=== PATIENT | male | born 1945 | race Caucasian/White ===

== ENCOUNTER 2016-06-11 13:09 | Inpatient (IN) | payer OTHER, MEDICARE ==
[2016-06-11] VITALS (13 sets, daily range): BP systolic 75–171; BP diastolic 41–80; PULSE 74–130; RESP 15–18; TEMP 99.4; O2SAT 94–100
[~2016-06-11] VITALS: Ht 188 cm; Wt 83.7 kg
[2016-06-11] MEDS ORDERED: LOSA100T PO (13:25)
[2016-06-11] MEDS ORDERED: AMLO5TAB2 PO (13:25)
[2016-06-11] MEDS ORDERED: METO50TA11 PO (13:25)
[2016-06-11] MEDS ORDERED: NITR0.4S SL (13:25)
[2016-06-11] MEDS ORDERED: ASPI81CH CHEW (13:25)
[2016-06-11] MEDS ORDERED: ADVA100A INH (13:26)
[2016-06-11] MEDS ORDERED: SODIUM CHLORIDE 0.9% FLUSH 5 ML FLUSH IVF PRN (13:30)
[2016-06-11 14:00] LABS: AUTOMATED NEUTROPHIL # 6.4 TH/MM3 (1.8-7.7); BASOPHIL # 0.1 TH/MM3 (0-0.2); BASOPHIL % 0.7 % (0.0-2.0); EOSINOPHIL # 0.1 TH/MM3 (0-0.4); EOSINOPHIL % 0.9 % (0.0-4.0); HEMATOCRIT 39.9 % (39.0-51.0); HEMO FLAGS DIFF FINAL; LYMPH % 9.8 % (9.0-44.0); LYMPHOCYTE # 0.8 TH/MM3 (1.0-4.8); MEAN CELL VOLUME 88.3 FL (80.0-100.0); MEAN CORPUSCULAR HEMOGLOBIN 30.9 PG (27.0-34.0); MONO % 7.8 % (0.0-8.0); NEUT % 80.8 % (16.0-70.0); PLATELET COUNT 284 TH/MM3 (150-450); RED BLOOD COUNT 4.52 MIL/MM3 (4.50-5.90); RED CELL DISTRIBUTION WIDTH 12.7 % (11.6-17.2)
[2016-06-11 14:08] LABS: PROTHROMBIN TIME - PATIENT 10.9 SEC (9.8-11.6)
[2016-06-11 14:24] LABS: ALKALINE PHOSPHATASE 65 U/L (45-117); ALT (GPT) 18 U/L (12-78); ANION GAP 12 MEQ/L (5-15); BICARBONATE 26.2 MEQ/L (21.0-32.0); BLOOD UREA NITROGEN 12 MG/DL (7-18); CHLORIDE 100 MEQ/L (98-107); GLOMERULAR FILTRATION RATE 46 ML/MIN (>89); SODIUM (NA) 138 MEQ/L (136-145); TOTAL BILIRUBIN ADULT 0.6 MG/DL (0.2-1.0)
[2016-06-11 14:25] LABS: AST (GOT) 22 U/L (15-37); CREATINE KINASE 73 U/L (39-308); POTASSIUM 3.4 MEQ/L (3.5-5.1)
--- NOTE | 2016-06-11 14:55 | PD ---
HPI Chief Complaint: Syncope/Near-Syncope Time Seen by Provider: 13:21 Travel History International Travel<30 days: No Contact w/Intl Traveler<30days: No Traveled to known affect area: No History of Present Illness HPI 71-year-old male came to the emergency room with history of headache, syncopal episode, hypotension. He called 911 since he was having headache but when EMS arrived patient initially was not opening the door. Later on he crawled to the door and opened and said he had fallen. There was possibly a syncopal episode. His blood pressure initially by EMS was less than 80. He was a difficult IV stick and by the time they got a 22-gauge Angiocath they started flowing fluid. Upon arrival patient said he was cold and left side of his head was hurting. Patient has history of chronic headache on the left side. He had CAT scan of his head done 5 days ago for the same reason. He has also been nauseous he said. His blood pressure was 125 systolic in the ER and rectal temp was 98.5. He did seem to be anxious and in moderate distress. Patient has history of atrial fibrillation. [facility] Past Medical History Narrative Medical List of his past medical history as reviewed from the nursing note. Asthma: Yes Atrial Fibrillation: Yes Cardiovascular Problems: Yes (AFIB) Hypertension: Yes Influenza Vaccination: Yes Past Surgical History Surgical History: No Previous Surgery Social History Alcohol Use: No Tobacco Use: No Substance Use: No Allergies-Medications (Allergen,Severity, Reaction): Coded Allergies: No Known Allergies (Unverified , 06/11/16) Comments No known drug allergies. Reported Meds & Prescriptions Reported Meds & Active Scripts Active Reported Advair Diskus Inh (Fluticasone-Salmeterol Inh) 100-50 Mcg/Blist Aer 1 Puff INH BID Rinse mouth after use. Nitrostat SL (Nitroglycerin) 0.4 Mg Subl 0.4 Mg SL DIRECTED PRN 1 tablet under the tongue as needed for chest pain. Repeat every 5 minutes for a total of 3 DOSES or call 911 if NO relief. Losartan (Losartan Potassium) 100 Mg Tab 100 Mg PO DAILY Metoprolol Succinate ER 24 HR (Metoprolol Succinate) 50 Mg Tab 50 Mg PO BID Amlodipine (Amlodipine Besylate) 5 Mg Tab 5 Mg PO DAILY Aspirin 81 Mg Chew 81 Mg CHEW DAILY Narrative Medication List of his home medications reviewed from the nursing note. Review of Systems Except as stated in HPI: all other systems reviewed are Neg Physical Exam Narrative GENERAL: Awake, alert, anxious, moderate distress SKIN: Warm and dry. HEAD: Atraumatic. Normocephalic. EYES: Pupils equal and round. No scleral icterus. No injection or drainage. ENT: No nasal bleeding or discharge. Mucous membranes pink and moist. NECK: Trachea midline. No JVD. CARDIOVASCULAR: Irregularly irregular. No murmur appreciated. RESPIRATORY: No accessory muscle use. Clear to auscultation. Breath sounds equal bilaterally. GASTROINTESTINAL: Abdomen soft, non-tender, nondistended. Hepatic and splenic margins not palpable. MUSCULOSKELETAL: No obvious deformities. No clubbing. No cyanosis. No edema. NEUROLOGICAL: Awake and alert. No obvious cranial nerve deficits. Motor grossly within normal limits. Normal speech. PSYCHIATRIC: Appropriate mood and affect; insight and judgment normal. Data Data Last Documented VS Vital Signs Date Time Temp Pulse Resp B/P Pulse Ox O2 Delivery O2 Flow Rate FiO2 06/11/16 16:08 78 18 75/41 97 06/11/16 16:05 Nasal Cannula 2 Orders Prothrombin Time / Inr (Pt) (06/11/16 13:28) Complete Blood Count With Diff (06/11/16 13:28) Comprehensive Metabolic Panel (06/11/16 13:28) Creatine Kinase (Cpk) (06/11/16 13:28) Drug Screen, Random Urine (06/11/16 13:28) Troponin I (06/11/16 13:28) Urinalysis - C+S If Indicated (06/11/16 13:28) Ua Includes Microscopic (06/11/16 13:28) Ct Brain W/O Iv Contrast(Rout) (06/11/16 13:28) Ecg Monitoring (06/11/16 13:28) Iv Access Insert/Monitor (06/11/16 13:28) Oximetry (06/11/16 13:28) Sodium Chloride 0.9% Flush (Ns Flush) (06/11/16 13:30) Ct Pulmonary Angiogram (06/11/16 ) Ct Abd/Pel W Iv Contrast(Rout) (06/11/16 ) Sodium Chlor 0.9% 1000 Ml Inj (Ns 1000 M (06/11/16 15:00) Sodium Chlor 0.9% 1000 Ml Inj (Ns 1000 M (06/11/16 15:00) Sodium Chlor 0.9% 1000 Ml Inj (Ns 1000 M (06/11/16 15:00) Iohexol 350 Inj (Omnipaque 350 Inj) (06/11/16 15:16) Vital Signs (Adult) Q15MX4,Q4H (06/11/16 15:53) ^ Director Of Cardiac Rehabilitation / Telemetry (06/11/16 15:53) Cardiac Rhythm ANTONIETA.Q8H (06/11/16 15:53) ^ Notify Dr: Other (06/11/16 15:53) Diltiazem Inj (Cardizem Inj) (06/11/16 16:00) Diltiazem Inj (Cardizem Inj) (06/11/16 16:00) Heparin Infusion ANTONIETA.Q1H (06/11/16 15:53) Heparin Inj (Heparin Inj) (06/11/16 16:00) Heparin-D5w Inj (Heparin-D5w Inj) (06/11/16 16:00) Act Partial Throm Time (Ptt) (06/11/16 15:53) Cbc No Diff, Includes Plts (06/11/16 15:53) Cbc No Diff, Includes Plts (06/14/16 06:00) Act Partial Throm Time (Ptt) (06/11/16 22:53) Lactic Acid (06/11/16 16:10) Blood Culture (06/11/16 16:10) Sodium Chlor 0.9% 1000 Ml Inj (Ns 1000 M (06/11/16 16:15) Norepinephrine-Dextrose Drip (Levophed-D (06/11/16 16:15) Terbutaline Inj (Brethine Inj) (06/11/16 16:15) Piperacil-Tazo 4.5 Gm Premix (Zosyn 4.5 (06/11/16 16:15) Vancomycin Inj (Vancomycin Inj) (06/11/16 16:15) Urinary Catheter Insert/Apply (06/11/16 16:16) Admit Order (Ed Use Only) (06/11/16 16:25) Labs Laboratory Tests Test 06/11/16 06/11/16 06/11/16 13:15 16:18 16:21 White Blood Count 8.0 TH/MM3 7.8 TH/MM3 Red Blood Count 4.52 MIL/MM3 4.08 MIL/MM3 Hemoglobin 14.0 GM/DL 12.6 GM/DL Hematocrit 39.9 % 36.3 % Mean Corpuscular Volume 88.3 FL 89.0 FL Mean Corpuscular Hemoglobin 30.9 PG 30.8 PG Mean Corpuscular Hemoglobin 35.0 % 34.6 % Concent Red Cell Distribution Width 12.7 % 12.9 % Platelet Count 284 TH/MM3 235 TH/MM3 Mean Platelet Volume 7.6 FL 8.0 FL Neutrophils (%) (Auto) 80.8 % Lymphocytes (%) (Auto) 9.8 % Monocytes (%) (Auto) 7.8 % Eosinophils (%) (Auto) 0.9 % Basophils (%) (Auto) 0.7 % Neutrophils # (Auto) 6.4 TH/MM3 Lymphocytes # (Auto) 0.8 TH/MM3 Monocytes # (Auto) 0.6 TH/MM3 Eosinophils # (Auto) 0.1 TH/MM3 Basophils # (Auto) 0.1 TH/MM3 CBC Comment DIFF FINAL Differential Comment Prothrombin Time 10.9 SEC Prothromb Time International 1.0 RATIO Ratio Sodium Level 138 MEQ/L Potassium Level 3.4 MEQ/L Chloride Level 100 MEQ/L Carbon Dioxide Level 26.2 MEQ/L Anion Gap 12 MEQ/L Blood Urea Nitrogen 12 MG/DL Creatinine 1.50 MG/DL Estimat Glomerular Filtration 46 ML/MIN Rate Random Glucose 157 MG/DL Calcium Level 8.4 MG/DL Total Bilirubin 0.6 MG/DL Aspartate Amino Transf 22 U/L (AST/SGOT) Alanine Aminotransferase 18 U/L (ALT/SGPT) Alkaline Phosphatase 65 U/L Total Creatine Kinase 73 U/L Troponin I 0.12 NG/ML Total Protein 7.3 GM/DL Albumin 3.2 GM/DL Lactic Acid Level 1.4 mmol/L Activated Partial 121.1 SEC Thromboplast Time MDM Medical Decision Making Medical Screen Exam Complete: Yes Emergency Medical Condition: Yes Medical Record Reviewed: Yes Interpretation(s) Twelve-lead EKG was reviewed by me. Atrial fibrillation, normal axis, LVH, RVR. Heart rate of 114 bpm. Differential Diagnosis Intracranial bleed, hypovolemia, electrolyte abnormalities Narrative Course 3:51 PM blood test results are back and troponin is elevated. Patient's heart rate is currently in 130s to 140s. I'll start him on Cardizem bolus and drip. I will also start him on heparin bolus and drip. Patient will need to be admitted. CAT scan of his head and abdomen pelvis were within normal limits. CAT scan of his chest did not show any PE but some interstitial pulmonary edema. Awaiting for the hospitalist to call back. 4:26 PM patient's heart rate continued to be in 130s. His systolic blood pressure was 110. I decided to give him a Cardizem bolus with drip. After getting 15 mg of Cardizem bolus patient's blood pressure dropped to 61 systolic. Patient will not get the Cardizem drip. He has been started on fourth L of normal saline bolus. Cedillo will be put in. Repeat Blood pressure was 90 systolic. At this point given multiple issues patient will be admitted to ICU. I spoke with Dr. Amador was the fresh work wrapper layer on today. He has accepted the case. Critical Care Narrative Aggregate critical care time was 90 minutes. Time to perform other separately billable procedures was not included in the critical care time. My time did not include minutes spent treating any other patients simultaneously or on activities that did not directly contribute to the patient's treatment. The services I provided to this patient were to treat and/or prevent clinically significant deterioration that could result in: Syncope, hypotension, A. fib with RVR, heparin bolus and drip, Cardizem bolus and drip, hypotension, 4 L of IV fluid resuscitation I provided critical care services requiring my management, as noted below: Chart data review, documentation time, medication orders and management, vital sign assessments/reviewing monitor data, ordering and reviewing lab tests, ordering and interpreting/reviewing x-rays and diagnostic studies, care of the patient and discussion of the patient with the admitting physicians. Procedures Procedure Narrative CENTRAL VENOUS LINE: The site was prepped with Betadine and sterilely draped. It was infiltrated with 1% lidocaine plain. The deep vein was cannulated using normal Seldinger technique. A triple lumen central line was placed in the left subclavian site and secured with simple interrupted suture. The site was sterilely dressed. The patient tolerated the procedure well. EKG Prior to Arrival: Yes Physician Communication Physician Communication Dr. Amador Diagnosis Primary Impression: Headache Qualified Code: R51 - Chronic intractable headache, unspecified headache type Additional Impressions: Atrial fibrillation with RVR Elevated troponin Syncope Qualified Code: R55 - Syncope, unspecified syncope type Hypotension Qualified Code: I95.9 - Hypotension, unspecified hypotension type Admitting Information Admitting Physician Requests: it Mohsen Gale MD Jun 11, 2016 14:55
[2016-06-11] MEDS ORDERED: SODIUM CHLOR 0.9% 1000 ML INJ 1,000 ML IV ONE ×4 (15:00→16:15)
[2016-06-11] MEDS ORDERED: IOHEXOL 350 MG/ML 10 ML VIAL (for RAD DIAG) IV ONE (15:16)
--- NOTE | 2016-06-11 15:19 | RADRPT ---
EXAM DATE/TIME: 06/11/2016 15:09 [facility] COMPARISON: No previous studies available for comparison. INDICATIONS : Cephalgia. RADIATION DOSE: 69.07 CTDIvol (mGy) MEDICAL HISTORY : Hypertension. Cardiovascular disease SURGICAL HISTORY : None. ENCOUNTER: Initial ACUITY: 1 day PAIN SCALE: 5/10 LOCATION: cranial TECHNIQUE: Multiple contiguous axial images were obtained of the head. Using automated exposure control and adj ustment of the mA and/or kV according to patient size, radiation dose was kept as low as reasonably a chievable to obtain optimal diagnostic quality images. FINDINGS: The intracranial contents are unremarkable. There is no parenchymal hemorrhage, acute infarction or m ass lesion. There are no extra-axial fluid collections appreciated. The posterior fossa is unreamrakble with midline 4th ventricle. There is air in the soft tissues in the right infratemporal fossa. The etiology for this is not appa rent. Correlation is suggested. CONCLUSION: Negative for acute intracranial process. Air in the temporal fossa on the right. Correlation is joaquín valdez. Guillaume Mims MD FACR on June 11, 2016 at 15:13 Board Certified Radiologist. This report was verified electronically.
--- NOTE | 2016-06-11 15:32 | RADRPT ---
EXAM DATE/TIME: 06/11/2016 15:12 [facility] COMPARISON: No previous studies available for comparison. INDICATIONS : Evaluate for emboli. IV CONTRAST: 75 cc Omnipaque 350 (iohexol) IV ; Cumulative dose for multiple exams. RADIATION DOSE: 23.40 CTDIvol (mGy) MEDICAL HISTORY : Cardiovascular disease. Hypertension. AFIB SURGICAL HISTORY : None. ENCOUNTER: Initial ACUITY: 1 day PAIN SCALE: 5/10 LOCATION: Bilateral chest TECHNIQUE: Volumetric scanning of the chest was performed using a pulmonary embolism protocol MIP images were re constructed. Using automated exposure control and adjustment of the mA and/or kV according to patien t size, radiation dose was kept as low as reasonably achievable to obtain optimal diagnostic quality images. FINDINGS: Moderate interstitial changes are present in both lungs with cardiomegaly. Moderate coronary calcifi cations are noted. There is no axillary adenopathy. There is no mediastinal adenopathy. The pulmonary arteries are prominent centrally. I do not see evidence for central pulmonary emboli. There is reflux of contrast into the hepatic veins. This can be seen with right heart failure. CONCLUSION: 1. Cardiomegaly with moderate interstitial edema. 2. There is no evidence for central pulmonary emboli. 3. Marked coronary artery calcifications. 4. Prominent pulmonary arteries suggesting pulmonary artery hypertension. Guillaume Mims MD FACR on June 11, 2016 at 15:23 Board Certified Radiologist. This report was verified electronically.
--- NOTE | 2016-06-11 15:36 | RADRPT ---
EXAM DATE/TIME: 06/11/2016 15:12 [facility] COMPARISON: No previous studies available for comparison. INDICATIONS : Abdomen pain. IV CONTRAST: 75 cc Omnipaque 350 (iohexol) IV ; Cumulative dose for multiple exams. ORAL CONTRAST: No oral contrast ingested. RADIATION DOSE: 8.11 CTDIvol (mGy) MEDICAL HISTORY : Cardiovascular disease. Hypertension. SURGICAL HISTORY : None. ENCOUNTER: Initial ACUITY: 1 day PAIN SCALE: 5/10 LOCATION: Bilateral abdomen. TECHNIQUE: Volumetric scanning of the abdomen and pelvis was performed. Using automated exposure control and ad justment of the mA and/or kV according to patient size, radiation dose was kept as low as reasonably achievable to obtain optimal diagnostic quality images. FINDINGS: Moderate bibasilar interstitial changes are evident with patchy air space disease. Marked coronary c alcifications are noted. The liver is free of focal defects. There is some gallbladder wall thickening present. Cyst is seen in the left kidney. The right kidney is unremarkable. There is no ascites or adenopathy appreciated. The pelvic contents are unremarkable. There is minimal prostatic calcifications. Scattered divertic yolanda are present in the sigmoid colon without diverticulitis. CONCLUSION: Minimal gallbladder wall thickening. Otherwise, benign appearing gallbladder. I do not see etiology for patient's abdominal pain. Guillaume Mims MD FACR on June 11, 2016 at 15:30 Board Certified Radiologist. This report was verified electronically.
[2016-06-11] MEDS ORDERED: DILTIAZEM HCL 25 MG/5 ML VIAL IVP ONE (16:00)
[2016-06-11] MEDS ORDERED: DILTIAZEM INJ 125 MG in SODIUM CHLORIDE 0.9% INJ 100 ML IV SCH ×2 (16:00→17:15)
[2016-06-11] MEDS ORDERED: HEPARIN SODIUM - IV 10,000 UNITS/10 ML VIAL IV ONE (16:00)
[2016-06-11] MEDS ORDERED: HEPARIN-D5W INJ 250 ML IV SCH (16:00)
[2016-06-11] MEDS ORDERED: PIPERACIL-TAZO 4.5 GM PREMIX 100 ML IV ONE (16:15)
[2016-06-11] MEDS ORDERED: TERBUTALINE INJ 1 MG/ML AMP SQ PRN (16:15)
[2016-06-11] MEDS ORDERED: NOREPINEPHRINE-DEXTROSE DRIP 250 ML IV SCH (16:15)
[2016-06-11] MEDS ORDERED: VANCOMYCIN INJ 1,000 MG in SODIUM CHLOR 0.9% 250 ML INJ 250 ML IV ONE (16:15)
[2016-06-11] MEDS ORDERED: RESP: ALBUTEROL 2.5 MG/IPRATROPIUM 0.5 MG NEB (PRN) INH (16:30)
[2016-06-11] MEDS ORDERED: SODIUM CHLORIDE 0.9% FLUSH 5 ML FLUSH IV FLUSH PRN (16:30)
[2016-06-11] MEDS ORDERED: MISCELLANEOUS NURSING INFORMATION XX SCH (16:30)
[2016-06-11] MEDS ORDERED: CHLORHEXIDINE GLUCONATE 2 % 1 PACK (2 CLOTHS) TOP PRN (16:30)
[2016-06-11] MEDS ORDERED: POTASSIUM CL 40 MEQ/30 ML LIQ UDC PO/TUBE PRN ×2 (16:45)
[2016-06-11] MEDS ORDERED: SODIUM PHOSPHATE INJ 30 MMOL in SODIUM CHLOR 0.9% 250 ML INJ 240 ML IV PRN (16:45)
[2016-06-11] MEDS ORDERED: POTASSIUM PHOSPHATE MONOBASIC 500 MG TAB PO PRN (16:45)
[2016-06-11] MEDS ORDERED: POTASSIUM CHLOR 20 MEQ PREMIX 100 ML IV PRN ×2 (16:45)
[2016-06-11] MEDS ORDERED: MAGNESIUM SULFATE INJ 4 GM in SODIUM CHLORIDE 0.9% INJ 92 ML IV PRN (16:45)
[2016-06-11] MEDS ORDERED: POTASSIUM CHLOR 40 MEQ PREMIX 100 ML IV PRN (16:45)
[2016-06-11] MEDS ORDERED: POTASSIUM PHOSPHATE INJ 30 MMOL in SODIUM CHLOR 0.9% 250 ML INJ 250 ML IV PRN (16:45)
[2016-06-11] MEDS ORDERED: ACETAMINOPHEN 650 MG SUPP RECTAL ONE (16:45)
[2016-06-11] MEDS ORDERED: POTASSIUM PHOSPHATE MONOBASIC 500 MG TAB PO/TUBE PRN (16:45)
[2016-06-11] MEDS ORDERED: MAGNESIUM OXIDE 400 MG TAB PO PRN (16:45)
[2016-06-11] MEDS ORDERED: MAGNESIUM SULFATE INJ 2 GM in SODIUM CHLORIDE 0.9% INJ 96 ML IV PRN (16:45)
[2016-06-11 16:51] LABS: HEMATOCRIT 36.3 % (39.0-51.0); MEAN CORPUSCULAR HEMOGLOBIN 30.8 PG (27.0-34.0); MEAN CORPUSCULAR HGB CONC 34.6 % (32.0-36.0); PLATELET COUNT 235 TH/MM3 (150-450); RED BLOOD COUNT 4.08 MIL/MM3 (4.50-5.90); RED CELL DISTRIBUTION WIDTH 12.9 % (11.6-17.2); REVIEW FLAG FINAL; WHITE BLOOD COUNT 7.8 TH/MM3 (4.0-11.0)
[2016-06-11] MEDS ORDERED: ONDANSETRON HCL 4 MG/2 ML VIAL ONE (16:53)
--- NOTE | 2016-06-11 17:19 | HHI.HP ---
HPI Service Critical Care Medicine Primary Care Physician Unknown Admission Diagnosis hypertension, elevated troponin, A. fib with RVR Diagnosis: Chief Complaint: Syncope Acute kidney failure Dehydration Probable pneumonia and sepsis Atrial fibrillation with RVR Troponin elevation Travel History International Travel<30 Days: No Contact w/Intl Traveler <30 Da: No Traveled to Known Affected Are: No Sepsis Criteria SIRS Criteria (2 or more): Heart rate over 90 Sepsis Criteria (SIRS+source): Infect source susp/known History of Present Illness 71-year-old male with past medical history of paroxysmal atrial fibrillation, history of head and neck squamous cell cancer, new left submandibular mass FNA 10 days ago, results pending who presented to the emergency room with history of headache, syncopal episode, hypotension. Patient called EMS for severe headache and possible syncope. He denies fall and had been on couch but unable to get up. When EMS arrived it took a while for the patient open the door, he eventually crawled to the door and opened it. His blood pressure initially by EMS was less than 80. They placed 22-gauge Angiocath they started IV fluid. In the ER patient continued to be intermittently hypotensive with systolic blood pressure in 70s. Blood pressure improved with multiple fluid boluses he received 4 L of normal saline IV fluids. His heart rate was in 130s to 140s, with 20 mg of IV Cardizem push patient converted to NSR. CAT scan of his head and abdomen pelvis were essentially within normal limits. CT of the head showed right infratemporal fossa air (?this could be related to the FNA on the left neck). CAT scan of his chest showed interstitial infiltrates bilaterally, predominantly upper lobe. Dr. Gale also placed a left subclavian central line I evaluated the patient in the ED. Patient appears with mild to moderate distress due to nausea, vomiting and anxiety. He and his noted that since last 5 days he had not been having adequate po mouth intake due to loss of appetite. He does think that he lost consciousness. I have ordered MRI and MRA of the brain and neck. Patient will be empirically covered for sepsis with Zosyn and azithromycin given pulmonary infiltrates. His lab works shows a creatinine of 1.5. His troponin was 0.12. His aPTT came back at 121 which I have repeated. Hematology consult had been requested and also will request records from Dr. Ye's office. 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 Ye ENT Past Surgical History FNA L submandibular mass 10 days ago Reported Medications Advair Diskus Inh (Fluticasone-Salmeterol Inh) 100-50 Mcg/Blist Aer 1 Puff INH BID Nitrostat SL (Nitroglycerin) 0.4 Mg Subl 0.4 Mg SL DIRECTED PRN Losartan (Losartan Potassium) 100 Mg Tab 100 Mg PO DAILY Metoprolol Succinate ER 24 HR (Metoprolol Succinate) 50 Mg Tab 50 Mg PO BID Amlodipine (Amlodipine Besylate) 5 Mg Tab 5 Mg PO DAILY Aspirin 81 Mg Chew 81 Mg CHEW DAILY (Takes Rythmol as needed for atrial fibrillation with RVR according to the patient) Active Ordered Medications Reviewed Family History Reviewed Social History Quit smoking 25 years ago, no current alcohol use Physical Exam Vital Signs Vital Signs Date Time Temp Pulse Resp B/P Pulse Ox O2 Delivery O2 Flow Rate FiO2 06/11/16 16:08 78 18 75/41 06/11/16 16:05 130 18 97/52 Nasal Cannula 2 06/11/16 13:39 103 16 96/54 98 Nasal Cannula 2 06/11/16 13:35 16 94 Nasal Cannula 2 06/11/16 13:14 122 16 125/57 98 Physical Exam GENERAL: Awake, alert, mild to moderate distress. Osseous SKIN: Warm and dry. HEAD: Atraumatic. Normocephalic. EYES: Pupils equal and round. No scleral icterus. No injection or drainage. ENT/Neck: Left submandibular indurated mass, no fluctuation. Unable to determine size -margins cannot be palpated CARDIOVASCULAR: S1-S2 normal no murmurs. No murmur appreciated. RESPIRATORY: Clear to auscultation. Breath sounds equal bilaterally. GASTROINTESTINAL: Abdomen soft, non-tender, nondistended. Hepatic and splenic margins not palpable. MUSCULOSKELETAL: No clubbing. No cyanosis. No edema. NEUROLOGICAL: Awake and alert. No obvious cranial nerve deficits. Motor grossly within normal limits. Normal speech. Laboratory Laboratory Tests Test 06/11/16 13:15 White Blood Count 8.0 Red Blood Count 4.52 Hemoglobin 14.0 Hematocrit 39.9 Mean Corpuscular Volume 88.3 Mean Corpuscular Hemoglobin 30.9 Mean Corpuscular Hemoglobin 35.0 Concent Red Cell Distribution Width 12.7 Platelet Count 284 Mean Platelet Volume 7.6 Neutrophils (%) (Auto) 80.8 Lymphocytes (%) (Auto) 9.8 Monocytes (%) (Auto) 7.8 Eosinophils (%) (Auto) 0.9 Basophils (%) (Auto) 0.7 Neutrophils # (Auto) 6.4 Lymphocytes # (Auto) 0.8 Monocytes # (Auto) 0.6 Eosinophils # (Auto) 0.1 Basophils # (Auto) 0.1 CBC Comment DIFF FINAL Differential Comment Prothrombin Time 10.9 Prothromb Time International 1.0 Ratio Sodium Level 138 Potassium Level 3.4 Chloride Level 100 Carbon Dioxide Level 26.2 Anion Gap 12 Blood Urea Nitrogen 12 Creatinine 1.50 Estimat Glomerular Filtration 46 Rate Random Glucose 157 Calcium Level 8.4 Total Bilirubin 0.6 Aspartate Amino Transf 22 (AST/SGOT) Alanine Aminotransferase 18 (ALT/SGPT) Alkaline Phosphatase 65 Total Creatine Kinase 73 Troponin I 0.12 Total Protein 7.3 Albumin 3.2 Result Diagram: 06/11/16 1315 06/11/16 1315 Imaging Imaging studies reviewed Septic Shock Reassessment Heart: Regular rate and rhythm Lungs: Clear Skin: Cold Peripheral Pulses: Weak Right Radial Weak Left Radial Capillary Refill: Sluggish Assessment and Plan Problem List: (1) Syncope ICD Code: R55 Status: Acute (2) Atrial fibrillation with RVR ICD Code: I48.91 Status: Acute (3) Hypotension ICD Code: I95.9 Status: Acute (4) Elevated troponin ICD Code: R79.89 Status: Acute (5) Probable sepsis ICD Code: A41.9 Status: Acute (6) Acute kidney failure ICD Code: N17.9 Status: Acute (7) Probable pneumonia Status: Acute (8) Headache ICD Code: R51 Status: Chronic (9) Atrial fibrillation, chronic ICD Code: I48.2 Status: Chronic Assessment and Plan NEURO: Syncope Intractable headache -As needed Percocet for pain. -MRI MRA of the brain, patient has history of paroxysmal A. fib -Neurology consulted RESP/ENT: Left submandibular mass Moderate interstitial infiltrates History of squamous cell carcinoma head and neck in 2013 -Nasal cannula oxygen, continue Advair Diskus -Check influenza A and B -CT of the chest shows bilateral interstitial infiltrates predominantly upper lobes -Differential includes interstitial lung disease versus atypical pneumonia -Continue empiric Zosyn and azithromycin, check urine for Legionella and pneumococcal antigen CV: Hypotension A. fib with RVR Mild troponin elevation, rule out NSTEMI History of chronic atrial fibrillation -Normal saline IV fluids four liter bolus followed by 100 mL per hour, 2d echo, cycle troponin -Continue ASA, start IV Heparin if MRI brain negative -Troponin elevation may be secondary to RVR, will rule out NSTEMI GI: Nausea/vomiting -Use when necessary Zofran -Keep nothing by mouth. Protonix for GI prophylaxis : Acute kidney failure Dehydration -Monitor renal function closely. Strict intake output -Received 4 liter IV fluid bolus, continue maintenance fluid at normal saline 100 mL per hour -Further renal workup if creatinine is not improving, CT abdomen did not show any obstruction ID: Probable sepsis Probable pneumonia versus chronic interstitial infiltrates -Check sputum culture blood culture, check influenza, urine for Legionella and pneumococcal antigen -Received 1 dose of vancomycin continue Zosyn and azithromycin HEME: New left submandibular mass probable recurrence of squamous cell cancer History of squamous cell cancer of the scalp and neck in 2011 Elevated APTT ? lab error -Consult hematology oncology for further recommendation -Get FNA results from Dr. Ye's office -Monitor CBC, CMP, coags. Repeat APTT -Start IV heparin if MRI/MRA negative ENDO: Hyperglycemia Hypokalemia -Electrolyte replacement protocol -Sliding-scale insulin if needed PROPH: -Bilateral lower extremity SCDs. IV heparin if MRI negative. IV Protonix LINES: -Left subclavian central line placed by Dr. Gale CC time 45 min Code Status Full code Discussed Condition With Dr. Gale and Dr. Mims. Also discussed with patient and his Problem Qualifiers (1) Syncope: Qualified Code: R55 - Syncope, unspecified syncope type (2) Hypotension: Qualified Code: I95.9 - Hypotension, unspecified hypotension type (3) Headache: Qualified Code: R51 - Chronic intractable headache, unspecified headache type Ros Amador MD Jun 11, 2016 17:19
[2016-06-11 17:30] LABS: APTT (PATIENT) 121.1 SEC (24.3-30.1)
[2016-06-11] MEDS ORDERED: LORazepam 2 MG/ML VIAL IV PUSH ONE (17:30)
--- NOTE | 2016-06-11 17:41 | RADRPT ---
EXAM DATE/TIME: 06/11/2016 17:04 [facility] COMPARISON: No previous studies available for comparison. INDICATIONS : Evaluate central line placement MEDICAL HISTORY : Cardiovascular disease. Hypertension. AFIB SURGICAL HISTORY : None. ENCOUNTER: Initial ACUITY: 1 day PAIN SCORE: 3/10 LOCATION: Bilateral chest FINDINGS: Central venous catheter is in the expected location of the superior vena cava. There is no pneumotho rax. The lungs are under aerated. CONCLUSION: Line in good position without pneumothorax. Guillaume Mims MD FACR on June 11, 2016 at 17:10 Board Certified Radiologist. This report was verified electronically.
[2016-06-11] MEDS: PIPERACIL-TAZO 3.375 GM PREMIX 50 ML IV SCH (18:00)
[2016-06-11] MEDS: AZITHROMYCIN INJ 500 MG in SODIUM CHLOR 0.9% 250 ML INJ 250 ML IV SCH (18:00)
--- NOTE | 2016-06-11 18:17 | RADRPT ---
EXAM DATE/TIME: 06/11/2016 17:26 [facility] COMPARISON: No previous studies available for comparison. INDICATIONS : Near syncope. MEDICAL HISTORY : Carcinoma, squamous cell. Afib SURGICAL HISTORY : None applicable ENCOUNTER: Initial ACUITY: 1 day PAIN SCORE: 0/10 LOCATION: cranial TECHNIQUE: Multiplanar, multisequence MRI of the brain was performed without contrast. FINDINGS: There may be restricted diffusion evident. Very minimal periventricular white matter changes are not ed. There is no parenchymal hemorrhage, acute infarction or mass lesion. There are no extra-axial flu id collections appreciated. The midline structures are intact. CONCLUSION: There is no evidence for edema or infarction. Guillaume Mims MD FACR on June 11, 2016 at 18:00 Board Certified Radiologist. This report was verified electronically.
--- NOTE | 2016-06-11 18:20 | RADRPT ---
EXAM DATE/TIME: 06/11/2016 17:26 [facility] COMPARISON: No previous studies available for comparison. INDICATIONS : Near syncope. CONTRAST: 20 cc Omniscan (gadodiamide) IV MEDICAL HISTORY : Carcinoma, squamous cell. Afib SURGICAL HISTORY : None applicable ENCOUNTER: Initial ACUITY: 1 day PAIN SCORE: 0/10 LOCATION: neck Percent stenosis is calculated using the diameter of the stenotic region over the diameter of the nor mal distal internal carotid artery. TECHNIQUE: Bolus infused MRA of the extracranial circulation was performed using a neurovascular coil. Post pro cessing was performed including rotationg subvolume maximum intensity projections of each carotid art genet, rotating full volume maximum intensity projections of both carotid arteries, sagittal and washburn l sliding thin slab reformations of each carotid artery, and left oblique sliding thin slab reformati on through the aortic arch to include the origin of the arch branch vessels. FINDINGS: Examination is limited. Branching pattern of the great vessels is normal. There is no evidence of hemodynamically significant right carotid stenosis. There is no hemodynamically significant left carotid stenosis. Both vertebral arteries are patent. Basilar artery is patent. CONCLUSION: There is no hemodynamically significant of stenosis. Guillaume Mims MD FACR on June 11, 2016 at 18:10 Board Certified Radiologist. This report was verified electronically.
[2016-06-11] MEDS ORDERED: GADODIAMIDE PF 287 MG/ML 20 ML VIAL (for RAD MRI) IV ONE (18:22)
--- NOTE | 2016-06-11 18:22 | RADRPT ---
EXAM DATE/TIME: 06/11/2016 17:26 [facility] COMPARISON: No previous studies available for comparison. INDICATIONS : Near syncope. MEDICAL HISTORY : Carcinoma, squamous cell. Afib SURGICAL HISTORY : None applicable ENCOUNTER: Initial ACUITY: 1 day PAIN SCORE: 0/10 LOCATION: cranial Please note a normal MRA of the brain does not entirely exclude the possibility of a small aneurysm, nor the possibility of distal intracranial vessel disease. TECHNIQUE: 3D time of flight MRA was performed. Source images, multiplanar STS MIP, and 3D volume MIP reconstru ctions were reviewed. FINDINGS: There is moderate atherosclerotic intracranial vascular disease evident. There is no evidence for aneurysm or vascular displacement. There is poor visualization of the proximal M1 segment of the right posterior cerebral artery. I don' t know whether this is actually real or artifactual. CONCLUSION: Atherosclerotic intracranial vascular disease as described above. Guillaume Mims MD FACR on June 11, 2016 at 17:59 Board Certified Radiologist. This report was verified electronically.
[2016-06-11 18:27] LABS: BLOOD, URINE MOD (NEG); COMMENT (UR) CULT NOT INDICATED; CULTURE IF INDICATED CULT NOT INDICATED; GLUCOSE,URINE NEG (NEG); KETONE, URINE TRACE mg/dL (NEG); MUCUS URINE FEW /lpf (OCC); NITRITE,URINE NEG (NEG); URINE COLOR YELLOW (YELLW/STRAW)
[2016-06-11 18:33] LABS: AMPHETAMINE, URINE NEG (NEG); BARBITURATES, URINE NEG (NEG); COCAINE, URINE NEG (NEG)
[2016-06-11] MEDS: PANTOPRAZOLE SODIUM 40 MG VIAL IV SCH (18:57)
[2016-06-11] MEDS: NS + KCL 20 MEQ INJ 1,000 ML IV SCH (18:58)
[2016-06-11] MEDS: BUDESONIDE-FORMOTEROL 80/4.5 MCG INHALER INH SCH (22:08)
[2016-06-11] MEDS: SODIUM CHLORIDE 0.9% FLUSH 5 ML FLUSH IV FLUSH SCH (22:08)
[2016-06-11 22:33] LABS: APTT (PATIENT) 33.6 SEC (24.3-30.1)
[2016-06-12] VITALS (13 sets, daily range): BP systolic 115–183; BP diastolic 55–84; PULSE 71–93; RESP 14–22; TEMP 98.6–99.9; O2SAT 95–97
[2016-06-12] MEDS: PIPERACIL-TAZO 3.375 GM PREMIX 50 ML IV SCH ×3 (01:42→17:02)
[2016-06-12 02:16] LABS: APTT (PATIENT) 48.3 SEC (24.3-30.1)
[2016-06-12] MEDS: METOPROLOL TARTRATE 50 MG TAB PO SCH ×4 (03:29→21:11)
[2016-06-12] MEDS: NS + KCL 20 MEQ INJ 1,000 ML IV SCH ×2 (03:38→18:57)
[2016-06-12] MEDS: CHLORHEXIDINE GLUCONATE 2 % 1 PACK (2 CLOTHS) TOP SCH (03:44)
[2016-06-12 04:53] LABS: AUTOMATED NEUTROPHIL # 6.7 TH/MM3 (1.8-7.7); BASOPHIL % 0.2 % (0.0-2.0); EOSINOPHIL % 0.1 % (0.0-4.0); HEMATOCRIT 33.8 % (39.0-51.0); HEMO FLAGS DIFF FINAL; LYMPH % 9.2 % (9.0-44.0); LYMPHOCYTE # 0.8 TH/MM3 (1.0-4.8); MEAN CELL VOLUME 88.4 FL (80.0-100.0); MEAN CORPUSCULAR HEMOGLOBIN 30.1 PG (27.0-34.0); MONO % 11.6 % (0.0-8.0); NEUT % 78.9 % (16.0-70.0); PLATELET COUNT 234 TH/MM3 (150-450); RED BLOOD COUNT 3.83 MIL/MM3 (4.50-5.90); WHITE BLOOD COUNT 8.5 TH/MM3 (4.0-11.0)
[2016-06-12 05:27] LABS: ALKALINE PHOSPHATASE 49 U/L (45-117); ALT (GPT) 17 U/L (12-78); ANION GAP 9 MEQ/L (5-15); AST (GOT) 37 U/L (15-37); BICARBONATE 24.4 MEQ/L (21.0-32.0); BLOOD UREA NITROGEN 10 MG/DL (7-18); CHLORIDE 108 MEQ/L (98-107); GLOMERULAR FILTRATION RATE 75 ML/MIN (>89); POTASSIUM 3.2 MEQ/L (3.5-5.1); SODIUM (NA) 141 MEQ/L (136-145); TOTAL BILIRUBIN ADULT 0.6 MG/DL (0.2-1.0)
--- NOTE | 2016-06-12 05:39 | RADRPT ---
EXAM DATE/TIME: 06/12/2016 03:33 [facility] COMPARISON: CHEST SINGLE AP, June 11, 2016, 17:04. INDICATIONS : Shortness of breath, possible pulmonary disease. MEDICAL HISTORY : Cardiovascular disease. A-Fib hypertension SURGICAL HISTORY : None. ENCOUNTER: Subsequent ACUITY: 2 days PAIN SCORE: 0/10 LOCATION: Bilateral chest FINDINGS: Left subclavian catheter is stable in position. Aeration has improved with increased lung volumes and decrease in vascular congestion and perihilar parenchymal opacities. Cardiac contour is grossly stab le CONCLUSION: Improved aeration Perry Wells MD on June 12, 2016 at 5:37 Board Certified Radiologist. This report was verified electronically.
--- NOTE | 2016-06-12 07:25 | MB ---
cc: ROME GUILLORY M.D. DATE OF CONSULTATION: 06/11/2016 CHIEF COMPLAINT "I have cancer." HISTORY OF PRESENT ILLNESS This patient is a 71-year-old man. He received treatment for a head and neck cancer approximately 2 years ago. He received radiation and chemotherapy. His treatment was in [facility]. His records are in [facility]. The patient had findings suggestive of recurrence 2 months ago. He underwent a biopsy 10 days ago. He is uncertain of the results. He came to the emergency room complaining of nausea and anxiety as well as loss of appetite and decreased intake. The patient had studies in the emergency room. Those studies indicated a creatinine of 1.5 and BUN of 12. The patient's white count was largely normal. His APTT was recorded as 121. His PT and INR were normal. The doctors in the emergency room gave him fluids, aspirin and antibiotics. The patient continues to complain of discomfort and fullness in his neck. The doctors requested a hematology/oncology consultation. PRIOR HOSPITALIZATIONS AND MEDICAL EXAMS 1. Hypertension. 2. Atrial fibrillation. 3. Asthma. ALLERGIES None. MEDICATIONS 1. Amlodipine 5 mg daily. 2. Aspirin 81 mg daily. 3. Advair Diskus, one puff b.i.d. 4. Losartan 100 mg daily. 5. Metoprolol 50 b.i.d. 6. Nitroglycerin p.r.n. SOCIAL HISTORY This man received his treatment in [facility]. He lives in [place]. He is legally . He is retired. FAMILY HISTORY Noncontributory REVIEW OF SYSTEMS The patient does admit to cardiac problems with atrial fibrillation, hypertension, asthma, pain in his neck, cancer of his upper airway, recent biopsy, anxiety, rapid heart beat, poor oral intake. I did review the nurse 13-point review of systems which indicated that the patient had a history of atrial fibrillation, hypertension, asthma, symptoms of neck pain, anxiety, headache and recent syncopal episode. PHYSICAL EXAMINATION GENERAL: This is an alert, pleasant, very anxious 71-year-old man who is attended by his family. VITAL SIGNS: Pulse 76, respirations 18, blood pressure 84/48, pulse oximetry 97 on two liters. HEAD: No pain, irregularities or exostosis. EARS: External anatomy is normal; ear canals are normal. NOSE: No cysts or deviation of nasal septa appreciated. MOUTH: Tongue is in midline; uvula is nondeviated. No masses are evident. Dentition is acceptable. NECK: Examination of the left neck reveals a hard mass which has all the characteristics of recurrent cancer. LUNGS: Examination shows diminished chest wall expansion, diminished breath sounds. HEART: Normal S1 and S2 are present. There are no bruits, lifts, murmurs or thrills. S3 and S4 are absent. ABDOMEN: Abdomen is scaphoid. There is no localized tenderness or rebound. There are no masses. The liver and spleen cannot be palpated. There are normal bowel sounds. INGUINAL: Examination was not performed. GENITALIA: Examination was not performed. RECTAL: Examination was not performed. EXTREMITIES: Examination reveals degenerative changes. NEUROLOGIC: Adequate motor power and sensory perception is appreciated. There is good mentation, insight and affect. The patient is anxious. LYMPHATIC: Pathologic adenopathy is not appreciated. SKIN: The skin surface integrity is maintained symmetrically without edema or breakdown. 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 Note, we do not have the original records. The patient has evidently received chemotherapy and radiation. We need those records. 2. History of atrial fibrillation. 3. History of hypertension. 4. History of asthma. 5. Degenerative arthritis. 6. Hypertension. RECOMMENDATIONS This man has a stone-hard area which looks to be an obvious recurrence. This bodes poorly for his future. We need to acquire his records. He needs to be hydrated. His renal function is significantly abnormal. We need to obtain his recent biopsy. I note that he has had recent imaging studies which indicate that he likely has disease which has spread beyond the confines of his neck. He has had a PET scan and CAT scan recently. These were performed as an outpatient at [facility]. These scans did show strong evidence for recurrent disease with disease into his chest. We need to acquire his records, his recent biopsy and then he needs to be considered for treatment. Hopefully his renal function can be stabilized. Rome Guillory MD WJD/KIRSTEN /7:19 PM /7:03 AM IGNACIA
[2016-06-12] MEDS: POTASSIUM CHLOR 40 MEQ PREMIX 100 ML IV PRN ×2 (08:44→17:03)
[2016-06-12] MEDS: hydrALAZINE HCL 20 MG/ML VIAL IV PUSH PRN (08:45)
[2016-06-12] MEDS: PANTOPRAZOLE SODIUM 40 MG VIAL IV SCH (08:45)
[2016-06-12] MEDS: ASPIRIN 81 MG CHEW TAB CHEW SCH (08:46)
[2016-06-12] MEDS: SODIUM CHLORIDE 0.9% FLUSH 5 ML FLUSH IV FLUSH SCH ×2 (08:46→21:11)
[2016-06-12 08:47] LABS: APTT (PATIENT) 73.7 SEC (24.3-30.1)
[2016-06-12] MEDS: BUDESONIDE-FORMOTEROL 80/4.5 MCG INHALER INH SCH ×2 (08:47→21:11)
--- NOTE | 2016-06-12 09:01 | HHI.CCPN ---
Subjective Remarks/Hospital Course 71-year-old male with past medical history of paroxysmal atrial fibrillation, history of head and neck squamous cell cancer, new left submandibular mass FNA 10 days ago, results pending who presented to the emergency room with history of headache, syncopal episode, hypotension. Patient called EMS for severe headache and possible syncope. He denies fall and had been on couch but unable to get up. When EMS arrived it took a while for the patient open the door, he eventually crawled to the door and opened it. His blood pressure initially by EMS was less than 80. They placed 22-gauge Angiocath they started IV fluid. In the ER patient continued to be intermittently hypotensive with systolic blood pressure in 70s. Blood pressure improved with multiple fluid boluses he received 4 L of normal saline IV fluids. His heart rate was in 130s to 140s, with 20 mg of IV Cardizem push patient converted to NSR. CAT scan of his head and abdomen pelvis were essentially within normal limits. CT of the head showed right infratemporal fossa air (?this could be related to the FNA on the left neck). CAT scan of his chest showed interstitial infiltrates bilaterally, predominantly upper lobe. Dr. Gale also placed a left subclavian central line. I evaluated the patient in the ED. Patient appears with mild to moderate distress due to nausea, vomiting and anxiety. He and his noted that since last 5 days he had not been having adequate po mouth intake due to loss of appetite. He does think that he lost consciousness. I have ordered MRI and MRA of the brain and neck. Patient will be empirically covered for sepsis with Zosyn and azithromycin given pulmonary infiltrates. His lab works shows a creatinine of 1.5. His troponin was 0.12. His aPTT came back at 121 which I have repeated. Hematology consult had been requested and also will request records from Dr. Ye's office. His troponin is mildly elevated, could be demand ischemia, but will rule out NSTEMI SUBJECTIVE 06/12: Troponin increased to 5.15. patient is on IV Heparin, ASA, metoprolol and cardiology consult/Echo pending. Cr improved from 1.5 ot 0.9. UO 1.4 L in 24 hours. Hypotension resolved, in act hypertensive now. Will resume his Losartan and Norvasc Objective Vital Signs Date Time Temp Pulse Resp B/P Pulse Ox O2 Delivery O2 Flow Rate FiO2 1/16/17 06:00 78 06/12/16 04:00 98.9 14 167/75 95 06/11/16 20:00 Room Air 06/11/16 18:00 2 Intake and Output 06/11/16 06/11/16 06/12/16 08:00 16:00 00:00 Intake Total 9 ml Output Total 600 ml Balance -591 ml Result Diagram: 06/12/1642606/12/16426 Imaging Imaging studies reviewed Objective Remarks GENERAL: Awake, alert, no distress SKIN: Warm and dry. HEAD: Atraumatic. Normocephalic. EYES: Pupils equal and round. No scleral icterus. No injection or drainage. ENT/Neck: Left submandibular indurated mass, no fluctuation. Unable to determine size -margins cannot be palpated CARDIOVASCULAR: S1-S2 normal no murmurs. No murmur appreciated. RESPIRATORY: Clear to auscultation. Breath sounds equal bilaterally. GASTROINTESTINAL: Abdomen soft, non-tender, nondistended. Hepatic and splenic margins not palpable. MUSCULOSKELETAL: No clubbing. No cyanosis. No edema. NEUROLOGICAL: Awake and alert. No obvious cranial nerve deficits. Motor grossly within normal limits. Normal speech. A/P Problem List: (1) NSTEMI (non-ST elevated myocardial infarction) ICD Code: I21.4 Status: Acute (2) Syncope ICD Code: R55 Status: Acute (3) Atrial fibrillation with RVR ICD Code: I48.91 Status: Acute (4) Hypotension ICD Code: I95.9 Status: Acute (5) Elevated troponin ICD Code: R79.89 Status: Acute (6) Probable sepsis ICD Code: A41.9 Status: Acute (7) Acute kidney failure ICD Code: N17.9 Status: Acute (8) Probable pneumonia Status: Acute (9) Headache ICD Code: R51 Status: Chronic (10) Atrial fibrillation, chronic ICD Code: I48.2 Status: Chronic Assessment and Plan NEURO: Syncope Intractable headache -As needed Percocet for pain. -MRI MRA of the brain, essentially negative. Syncope most likely from severe hypotension -Neurology consulted RESP/ENT: Left submandibular mass Moderate interstitial infiltrates History of squamous cell carcinoma head and neck in 2013 -Nasal cannula oxygen, continue Advair Diskus -F/u influenza A and B -CT of the chest shows bilateral interstitial infiltrates predominantly upper lobes -Differential includes interstitial lung disease versus atypical pneumonia -Continue empiric Zosyn and azithromycin, f/u urine for Legionella and pneumococcal antigen CV: NSTEMI Hypotension resolved A. fib with RVR, now NSR History of chronic atrial fibrillation -Cardiology consulted, 2 D Echo pending. -Continue ASA, IV Heparin. Increase metoprolol to 50 q8 -Resume home Losartan 100 mg daily and Norvasc 5 mg daily -Received Normal saline IV fluids four liter bolus in ED, continue followed by 100 mL per hour, 2d echo, cycle troponin -May need cardiac cath GI: Nausea/vomiting-resolved -Use when necessary Zofran -Start Heart healthy diet. Protonix for GI prophylaxis : Acute kidney failure -resolved Dehydration -Monitor renal function closely. Strict intake output -Received 4 liter IV fluid bolus, continue maintenance fluid at normal saline 100 mL per hour ID: Probable sepsis Probable pneumonia versus chronic interstitial infiltrates -F/u sputum culture blood culture, check influenza, urine for Legionella and pneumococcal antigen -Received 1 dose of vancomycin continue Zosyn and azithromycin until cultures are back HEME: New left submandibular mass probable recurrence of squamous cell cancer History of squamous cell cancer of the scalp and neck in 2011 -Consulted hematology oncology for further recommendation, Dr. Tirado following -Get FNA results from Dr. Ye's office -Monitor CBC, CMP, coags. Repeat APTT ENDO: Hyperglycemia Hypokalemia -Electrolyte replacement protocol -Sliding-scale insulin if needed PROPH: -Bilateral lower extremity SCDs. IV heparin. IV Protonix LINES: -Left subclavian central line placed by Dr. Gale Level 3 Transfer to [facility] with tele. Dr. Good to assume care 06/13/16 Problem Qualifiers (1) Syncope: Qualified Code: R55 - Syncope, unspecified syncope type (2) Hypotension: Qualified Code: I95.9 - Hypotension, unspecified hypotension type (3) Headache: Qualified Code: R51 - Chronic intractable headache, unspecified headache type Ros Amador MD Jun 12, 2016 09:01
[2016-06-12] MEDS: LOSARTAN 50 MG TAB PO SCH (09:21)
[2016-06-12] MEDS: amLODIPine BESYLATE 5 MG TAB PO SCH (09:21)
[2016-06-12] MEDS: ONDANSETRON HCL 4 MG/2 ML VIAL IV PUSH PRN (09:39)
[2016-06-12] MEDS ORDERED: PNEUMOCOCCAL POLYVALENT INJ 25 MCG/0.5 ML SYR IM ONE (10:00)
--- NOTE | 2016-06-12 13:08 | EC ---
Study Study Date:06/12/2016 STUDY CONCLUSIONS SUMMARY LEFT VENTRICLE: The cavity size was normal. Wall thickness was normal. Systolic function was normal. The estimated ejection fraction was in the range of 55% to 60%. Wall motion was normal; there were no regional wall motion abnormalities. If LV function is below 40, please consider prescribing an ACEI or ARB or document rationale for non-use. PROCEDURE DATA STUDY STATUS: Elective. Procedure: Transthoracic echocardiography. Image quality was good. Scanning was performed from the parasternal, apical, and subcostal acoustic windows. Study completion: The patient tolerated the procedure well. Transthoracic echocardiography. M-mode, complete 2D, complete spectral Doppler, and color Doppler. Patient status: Inpatient. CARDIAC ANATOMY LEFT VENTRICLE: The cavity size was normal. Wall thickness was normal. Systolic function was normal. The estimated ejection fraction was in the range of 55% to 60%. Wall motion was normal; there were no regional wall motion abnormalities. AORTIC VALVE: Trileaflet; normal thickness leaflets. Doppler: Transvalvular velocity was within the normal range. There was no stenosis. No regurgitation. AORTA: Aortic root: The aortic root was normal in size. MITRAL VALVE: Structurally normal valve. Doppler: Transvalvular velocity was within the normal range. There was no evidence for stenosis. Trace regurgitation. Peak gradient: 2mm Hg (D). LEFT ATRIUM: The atrium was normal in size. RIGHT VENTRICLE: The cavity size was normal. Wall thickness was normal. PULMONIC VALVE: Doppler: Transvalvular velocity was within the normal range. There was no evidence for stenosis. No regurgitation. TRICUSPID VALVE: Structurally normal valve. Doppler: Transvalvular velocity was within the normal range. Trace regurgitation. PULMONARY ARTERY: The main pulmonary artery was normal-sized. Systolic pressure was within the normal range. RIGHT ATRIUM: The atrium was normal in size. PERICARDIUM: There was no pericardial effusion. SYSTEMIC VEINS: Inferior vena cava: The vessel was normal in size. BASIC MEASUREMENTS ADULT Normal Left ventricle LV internal dimension, ED, chordal level, *40.5 mm 43-52 PLAX LV posterior wall thickness, ED 7.87 mm IVS/LVPW ratio, ED *1.35 <1.3 Ventricular septum Septal thickness, ED 10.6 mm Left atrium Anterior-posterior dimension 40 mm Right ventricle RV internal dimension, ED, PLAX 21.4 mm 19-38 DOPPLER MEASUREMENTS ADULT Normal Main pulmonary artery Pressure, S 17 mm Hg =30 Mitral valve Peak E-wave velocity 75.3 cm/s Peak A-wave velocity 49.4 cm/s Peak gradient, D 2 mm Hg Peak E/A ratio 1.5 Tricuspid valve Regurgitant peak velocity 133 cm/s Peak RV-RA gradient, S 7 mm Hg Maximal regurgitant velocity 133 cm/s Systemic veins Estimated CVP 10 mm Hg Right ventricle RV pressure, S 17 mm Hg <30 LEGEND: Mean values are shown as u=mean value. Asterisk (*) miller values outside specified normal range. Prepared and signed by Thierry Toledo [id number]
[2016-06-12 13:48] LABS: AUTOMATED NEUTROPHIL # 8.7 TH/MM3 (1.8-7.7); BASOPHIL % 0.2 % (0.0-2.0); EOSINOPHIL % 0.1 % (0.0-4.0); HEMATOCRIT 34.2 % (39.0-51.0); HEMO FLAGS DIFF FINAL; LYMPH % 5.2 % (9.0-44.0); LYMPHOCYTE # 0.5 TH/MM3 (1.0-4.8); MEAN CELL VOLUME 88.1 FL (80.0-100.0); MEAN CORPUSCULAR HEMOGLOBIN 30.6 PG (27.0-34.0); MEAN CORPUSCULAR HGB CONC 34.8 % (32.0-36.0); MONO % 5.4 % (0.0-8.0); NEUT % 89.1 % (16.0-70.0); PLATELET COUNT 221 TH/MM3 (150-450); RED BLOOD COUNT 3.88 MIL/MM3 (4.50-5.90); RED CELL DISTRIBUTION WIDTH 12.9 % (11.6-17.2); WHITE BLOOD COUNT 9.8 TH/MM3 (4.0-11.0)
--- NOTE | 2016-06-12 14:40 | MB ---
cc: JIA LOVELACE M.D. DATE OF CONSULTATION: 06/12/2016 DATE OF : 1945 REASON FOR CONSULTATION Syncope. HISTORY OF PRESENT ILLNESS The patient is a 71-year-old man with a history of paroxysmal atrial fibrillation, head and neck squamous cell cancer with a new left submandibular mass that was aspirated 10 days ago. Biopsy results are pending. He came in because he had syncope at home and paramedics found him. He does not know for how long he had the event. He was found to be also hypertensive with a heart rate elevated over 130, found to be in atrial fibrillation with rapid ventricular response, and also had a headache. CT scan of the brain did not show anything acute. He actually had an MRI of the brain that was negative as well. He has been having some nausea and he continues to have nausea. Currently he is having a 2-D echo. PAST MEDICAL HISTORY 1. Paroxysmal atrial fibrillation. 2. Hypertension. 3. Squamous cell cancer of the neck, biopsy pending. MEDICATIONS Current medicines at home: 1. Advair. 2. Nitrostat. 3. Losartan. 4. Metoprolol. 5. Amlodipine. 6. Baby aspirin. 7. Rythmol p.r.n. SOCIAL HISTORY Quit smoking 25 years ago. No alcohol. ALLERGIES None reported. PHYSICAL EXAMINATION VITAL SIGNS: Temperature 98.9, pulse 74, respiratory rate 14, blood pressure 167/75. NEUROLOGIC: He is awake, alert and oriented. He is fluent. Pupils reactive. Face symmetrical. Tongue is midline. Motor-brambila he does not have any significant deficits noted, although he cannot fully participate at this time due to having a 2-D echo. Gait is withheld at this time. LABORATORY DATA His labs were reviewed. Hemoglobin 11.5, platelets 234,000, white count 8.5. Coag panel: Current PTT 73.7. Chemistries: Potassium 3.2, GFR 75, calcium 7.6, phosphorus 3.4, albumin 2.6. Four sets of troponin show 0.12, 0.46, 2.68, 5.15. There is another one pending from this morning. CKs have been normal, 73. Toxicology is negative. Urine culture is not indicated, moderate blood, some mucus. MRSA screen is negative. Microbiology is pending, urine and blood. IMAGING DATA Chest x-ray: Aeration seems to be improved per the chart. CT head negative for any acute process. Abdomen and pelvis CT: Minimal gallbladder thickening, benign otherwise. MRI of the brain showed no acute stroke or mass. CT angiography: Cardiomegaly with moderate interstitial edema. No pulmonary emboli. Marked coronary artery calcification. Prominent pulmonary artery suggesting pulmonary artery hypertension. Head MRA showed some atherosclerotic intracranial disease in the M1 proximally in the right posterior cerebral artery but this is either reality or artifact per chart. Carotid MRA was negative for intracranial disease. IMPRESSION AND RECOMMENDATIONS A 71-year-old man status post syncope, multifactorial, could be from his atrial fibrillation with RVR. Also has what looks like an elevated troponin at this point in time, possible [id number] myocardial infarction. Syncope is likely from his hypotension. He was hypotensive I am told when [facility] arrived and when he came in it was low as well at one point. He is no longer hypotensive. He already had an MRI and MRA. Certainly given his cardiac history he needs to be on aspirin for his intracranial questionable stenosis I would not put him on anything more than antiplatelet therapy. It does not sound like a seizure. I asked him if he bit his tongue, he denied that, he was not incontinent of urine or stool. He is having an echo. Will continue to monitor him, have cardiology evaluate him, and just routine pain management for the headache. Certainly can be multifactorial at this point in time. If any new changes, please feel free to call me but otherwise continue current care. MD DENIS Smith/KIRSTEN /11:00 AM /2:16 PM
--- NOTE | 2016-06-12 15:35 | MB ---
cc: RICCO MATTHEWS MD DATE OF CONSULTATION: 06/12/2016 CHIEF COMPLAINT Left neck mass. HISTORY OF PRESENT ILLNESS This is a 71-year-old male who was diagnosed with left tongue cancer, unsure if it was base of tongue cancer, he is only able to say left tongue cancer, with left neck cancer for which he was treated with chemoradiation therapy 2 years ago in [facility]. Approximately 2-3 months ago he noted increasing left neck swelling. He is unsure exactly how long it had been going on as his left neck is very firm from the radiation, but he did notice increased swelling approximately 2 months ago. He was seen by Dr. Chaz Ye in the office and underwent a fine-needle aspiration biopsy approximately 10 days ago. He came to the emergency room complaining of difficulty with weight loss and decreased appetite and intake as well as some nausea and he is very anxious about the left neck mass and possible recurrent cancer. PAST MEDICAL HISTORY 1. Hypertension. 2. Atrial fibrillation. 3. Asthma. MEDICATIONS Current medications are: 1. Advair. 2. Metoprolol. 3. Nitroglycerin. 4. Amlodipine. 5. Losartan. The patient currently has moved to [place] and established care with Dr. Ye for his neck cancer history. He has only been evaluated one time. PHYSICAL EXAMINATION GENERAL: Today the patient is alert and oriented x3, in no acute distress. HEENT: Today the tongue is soft. There are no obvious ulcerations or masses noted. The tongue base seems firm to palpation. Floor of mouth is soft to palpation. No obvious lesions or ulcerations. 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 NECK: Exam reveals a large left neck mass involving the parotid as well as level II with extension into level III. It is deeply fixed to deep structures with some skin changes. LUNGS: Clear to auscultation. HEART: Regular rate rhythm. ASSESSMENT AND PLAN The patient had a fine needle aspiration biopsy by Dr. Chaz Ye in the office; this was nondiagnostic. The pathology report has been faxed to Dr. Guillory's office. At this time with no diagnosis of recurrence, however, as I explained to Mr. Mcclelland this absolutely looks like a recurrent cancer in his left neck, we do need to get a diagnosis for treatment purposes. When he was in the office with Dr. Chaz Ye he had told him he was not interested in having additional chemotherapy and wanted to pursue surgical intervention. At that time he was referred to the [facility] at [facility] for possible resection. I am unsure if he is quite a candidate for this due to the significant extension of the neck mass; however, I would have to defer that to the head and neck surgeons at the [facility] to determine whether they felt that surgical resection was possible. Once again as I explained to Mr. Mcclelland we do not have a current diagnosis. He would benefit from an ultrasound-guided core biopsy of the left neck mass for diagnostic purposes. I have explained this to him. He understands and wishes to proceed in this fashion. My recommendation at the current time is for the patient to undergo ultrasound-guided biopsy of the left neck mass for diagnostic purposes, and he can determine whether he wants to pursue possible surgical intervention or additional chemotherapy options. Ricco VARGAS/KIRSTEN /11:50 AM /3:22 PM
[2016-06-12] MEDS: AZITHROMYCIN INJ 500 MG in SODIUM CHLOR 0.9% 250 ML INJ 250 ML IV SCH (17:02)
[2016-06-12] MEDS: ACETAMINOPHEN/HYDROcodone 325 MG/7.5 MG TAB PO PRN (17:02)
--- NOTE | 2016-06-12 19:03 | MB ---
cc: BRENNAN PELAYO Corrected Copy: 06/29/16 DATE OF CONSULTATION 06/12/2016 HISTORY This is a 71-year-old male presented with history of atrial fibrillation and had some history of a headache with syncopal episodes and low blood pressure. He was started on heparin drip and a Cedillo catheter was placed in the emergency room. According to the patient the catheter was somewhat traumatic and there was some difficulty getting it in and later on he developed gross hematuria. It is unclear if the gross hematuria started after the Cedillo or if it started after the heparin drip was administered. He denies any prior voiding history of nocturia, prostatic enlargement, gross stones or infections. He denies any family history of prostate cancer or any urologic problems. PAST MEDICAL HISTORY Includes: 1. Atrial fibrillation. 2. Hypertension. 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 MEDICATIONS For the medications please refer the chart. PAST SURGICAL HISTORY Notable for a submandibular mass biopsy 10 days ago. SOCIAL HISTORY Quit smoking 25 years ago. Denies any alcohol or drug use. FAMILY HISTORY Denies prostate cancer. REVIEW OF SYSTEMS Denies chest pain at present. Denies headaches, shortness of breath. Denies bleeding disorders, gait disturbances. Denies history of hematuria, stones or UTIs. Denies heat or cold intolerance. Denies psychiatric problems. Denies diarrhea or constipation. All other systems are negative. PHYSICAL EXAMINATION VITAL SIGNS: His vital signs today temperature 99.9, heart rate 74, respiratory rate 14, 167/75 is his blood pressure. GENERAL: He is a well-developed, well-nourished 71-year-old male in no acute distress. HEENT: Normocephalic, atraumatic. Pupils equal, round, reactive light. Ears: no wax noted NECK: Supple and there is left-sided submandibular mass noted. HEART: Rate is regular rate and rhythm. LUNGS: Breath sounds bilaterally. ABDOMEN: Soft and nontender. Nondistended. GENITOURINARY: Normal phallus. Testes are descended. Cedillo catheters is in place. This was irrigated to the bedside and is clear presently. There is gross blood in his Cedillo bag, however. EXTREMITIES: Show no clubbing, cyanosis or edema. LABORATORY DATA His recent white count 8.5, hemoglobin 11.5, hematocrit 33.8, platelet count of 234. Sodium 141, potassium 3.2, chloride 108, CO2 24.4, BUN 10, creatinine 0.9, glucose of 91. Coags, PT is 10.9, INR is 1.0, PTT is 73.7. Urinalysis shows, on admission, moderate blood with innumerable red cells noted. IMAGING CT scan of the abdomen and pelvis with contrast shows a cyst in the left kidney which is simple. Unremarkable pelvic contents. Minimal prostatic calcification is noted. ASSESSMENT This is a 71-year-old male with evidence of gross hematuria. Cedillo irrigated at the bedside and urine appears to be clear. This hematuria could have resulted from the heparin drip versus traumatic Cedillo. I believe however, this may be due to heparin drip as there is no blood per his meatus around the catheter which would indicate urethral trauma. We will recommend irrigations every 2-3 hours initially, if this remains clear the irrigations can then stop. He may need a cystoscopy as an outpatient. Void trial once he is ambulating and his syncope has resolved. Thank for the consult and allowing me to participate in the care of this patient. Brennan HEMPHILL /1:00 PM /2:18 PM MTDRaquel
--- NOTE | 2016-06-12 19:40 | EKG ---
Date Performed: 06/11/2016 Time Performed: 13:14:52 PTAGE: 71 years EKG: ATRIAL FIBRILLATION WITH RAPID VENTRICULAR RESPONSE MINIMAL VOLTAGE CRITERIA FOR LVH, CONSI RAMONA NORMAL VARIANT MODERATE ST DEPRESSION ABNORMAL ECG NO PREVIOUS TRACING DOCTOR: Joey Elder Interpretating Date/Time 06/12/2016 19:35:16
[2016-06-13] VITALS (8 sets, daily range): BP systolic 135–182; BP diastolic 62–86; PULSE 71–88; RESP 16–20; TEMP 98.4–99.2; O2SAT 94–98
[2016-06-13] MEDS: hydrALAZINE HCL 20 MG/ML VIAL IV PUSH PRN (00:04)
[2016-06-13] MEDS: NS + KCL 20 MEQ INJ 1,000 ML IV SCH (01:21)
[2016-06-13] MEDS: PIPERACIL-TAZO 3.375 GM PREMIX 50 ML IV SCH ×3 (01:21→17:25)
[2016-06-13] MEDS: CHLORHEXIDINE GLUCONATE 2 % 1 PACK (2 CLOTHS) TOP SCH (04:00)
[2016-06-13] MEDS: METOPROLOL TARTRATE 50 MG TAB PO SCH ×3 (05:00→21:11)
--- NOTE | 2016-06-13 07:27 | MB ---
cc: KALEE FERGUSON DATE OF CONSULTATION: 06/12/2016 DATE OF : 1945 REASON FOR CONSULTATION Elevated troponins. HISTORY OF PRESENT ILLNESS 71-year-old male with past medical history of hypertension, atrial fibrillation , asthma, head and neck cancer status post radiation and chemotherapy, recent FNA suggestive of recurrence, who presented to the emergency department with profound hypotension and acute kidney injury in the setting of nausea, vomiting , loss of appetite and decreased p.o. intake. On further questioning he reports that he has been having severe headaches and blurry vision. He denies chest pain, shortness of breath, palpitations. In the emergency department he was successfully resuscitated. He was admitted to the intensive care unit for further management and evaluation. Cardiology has been consulted secondary to elevated troponins. REVIEW OF SYSTEMS The review of systems is negative except for what is mentioned in the HPI. PAST MEDICAL HISTORY 1. Paroxysmal atrial fibrillation. 2. Hypertension. 3. Squamous cell cancer of the neck, biopsy pending. MEDICATIONS 1. Advair. 2. Nitrostat. 3. Losartan. 4. Metoprolol. 5. Amlodipine. 6. Baby aspirin. 7. Rythmol. SOCIAL HISTORY Quit smoking 25 years ago. No alcohol. No illicit drug use. ALLERGIES No known drug allergies. FAMILY HISTORY Noncontributory. PHYSICAL EXAMINATION VITAL SIGNS: Temperature 98.9, pulse 74, respiratory rate 14, blood pressure 167/75. O2 sat 95% in room air. GENERAL: He is awake, alert and oriented, in no acute distress. NECK: No JVD. No carotid bruits. HEART: Normal S1, S2. No murmurs, rubs or gallops. LUNGS: Clear to auscultation bilaterally. No wheezes, rhonchi or rales. ABDOMEN: Soft, nontender, nondistended. Positive bowel sounds. EXTREMITIES: No cyanosis. No edema. Pulses throughout. LABORATORY CBC: Hemoglobin 11, hematocrit 34, platelet count 221. INR 1. Chemistries sodium 141, potassium 3.9, BUN 10, creatinine 0.99. Troponin 2.6, 5.1, and 6.37. There is hematuria in the urinalysis. Toxicology unremarkable. ECHOCARDIOGRAM Echocardiogram shows normal LV systolic function with estimated ejection fraction of 60%. No wall motion abnormalities. EKG EKG shows sinus bradycardia with nonspecific ST changes. ASSESSMENT AND PLAN 71-year-old male with the above history and findings presenting with syncope in the setting of severe dehydration and decreased p.o. intake, also found to have significantly elevated troponin's. He denies chest pain or palpitations, however, does report nausea and vomiting in his house. He remains fairly hemodynamically stable. Urinalysis showed hematuria for which the heparin drip has been stopped. His head and neck carcinoma is being worked up. Although an atypical presentation for ACS, his troponin's are significantly elevated and trending up. The echocardiogram reveals a normal LV systolic function. Given his troponin's it would be reasonable to undergo a left heart cath to further assess any blockages. However, given his hematuria Iwe need to wait for a couple of days until this is further cleared. In the meantime continue aggressive medical management for CAD and schedule a coronary angiogram before discharge. Thank you for the opportunity to take part in the care of this patient. Will follow with you. Kalee Ferguson MD FINANCIAL RESERVE CLERK/BT /3:17 PM /7:12 AM IGNACIA
--- NOTE | 2016-06-13 08:06 | HHI.PR ---
Subjective Remarks Pt seen and examined. Cedillo irrigated at bedside to clear. No clots. Off Heparin drip. Objective Vital Signs Vital Signs Date Time Temp Pulse Resp B/P Pulse Ox O2 Delivery O2 Flow Rate FiO2 06/13/16 06:00 81 06/13/16 04:00 98.5 83 20 160/70 94 06/13/16 04:00 83 06/13/16 02:00 83 06/13/16 00:00 98.5 77 20 182/76 95 06/13/16 00:00 77 06/12/16 22:00 81 06/12/16 20:00 98.6 78 22 161/72 97 06/12/16 20:00 78 06/12/16 18:02 17 06/12/16 18:00 77 06/12/16 16:00 99.0 79 16 150/68 97 06/12/16 16:00 71 06/12/16 14:00 71 06/12/16 12:00 73 06/12/16 12:00 98.9 74 15 115/55 97 06/12/16 10:00 74 06/12/16 08:51 97 I/O 06/12/16 06/12/16 06/12/16 06/13/16 06/13/16 06/13/16 07:00 15:00 23:00 07:00 15:00 23:00 Intake Total 1088 ml 1125 ml 1282 ml 283 ml Output Total 800 ml 775 ml 475 ml 1050 ml Balance 288 ml 350 ml 807 ml -767 ml Intake Oral 240 ml 120 ml IV Total 1088 ml 1125 ml 1042 ml 163 ml Output Urine Total 800 ml 775 ml 475 ml 1050 ml # Bowel Movements 1 0 0 0 Result Diagram: 06/12/16 1300 06/13/16 0130 Objective Remarks Abd:soft,nt,nd Cedillo clear Assessment and Plan Assessment and Plan 71 y.o male with hematuria Urine now clear off Heparin drip Signing off. Should have outpt cysto. Can f/u in office after discharge. Denny Arauz DO Jun 13, 2016 08:06
[2016-06-13] MEDS: BUDESONIDE-FORMOTEROL 80/4.5 MCG INHALER INH SCH ×2 (09:00→21:10)
[2016-06-13] MEDS: ONDANSETRON HCL 4 MG/2 ML VIAL IV PUSH PRN (09:01)
[2016-06-13] MEDS: ACETAMINOPHEN/HYDROcodone 325 MG/7.5 MG TAB PO PRN ×3 (09:02→18:02)
[2016-06-13] MEDS: amLODIPine BESYLATE 5 MG TAB PO SCH (09:02)
[2016-06-13] MEDS: LOSARTAN 50 MG TAB PO SCH (09:02)
[2016-06-13] MEDS: ASPIRIN 81 MG CHEW TAB CHEW SCH (09:02)
[2016-06-13] MEDS: SODIUM CHLORIDE 0.9% FLUSH 5 ML FLUSH IV FLUSH SCH ×2 (09:03→21:11)
--- NOTE | 2016-06-13 09:21 | MG ---
cc: JACINTO GUTIERREZ MD Lab No: [id number] Date: 06/12/2016 : 1945 Sex: M INDICATION A 71-year-old with history of migraine headaches, numbness. DESCRIPTION A 6-8 Hz posterior rhythm, 10-30 microvolts, low amplitude beta and theta in the frontal channels. Frequent eye movement artifact. Myogenic artifact occurring. Limited driving with photic stimulation. Appeared to be in drowsy state at that time followed by excessive myogenic artifact. Single-lead EKG showing sinus rhythm with premature contractions. INTERPRETATION Slow alpha variant drowsy EEG with moderate myogenic artifact and eye movement artifact. Clinical correlation. Jacinto Gutierrez MD MG/BT /8:53 PM /9:16 AM
--- NOTE | 2016-06-13 13:15 | PD.ONC.PN ---
Subjective Subjective Remarks Afebrile overnight. Patient resting comfortably, continuing to complain of pain in his left side of his head and neck. Objective Data Date Time Temp Pulse Resp B/P Pulse Ox O2 Delivery O2 Flow Rate FiO2 06/13/16 12:00 99.2 77 16 135/63 95 06/13/16 12:00 76 06/13/16 08:00 81 06/13/16 08:00 98.5 88 19 181/86 94 06/13/16 06:00 81 06/13/16 04:00 98.5 83 20 160/70 94 06/13/16 04:00 83 06/13/16 02:00 83 06/13/16 00:00 98.5 77 20 182/76 95 06/13/16 00:00 77 06/12/16 22:00 81 06/12/16 20:00 98.6 78 22 161/72 97 06/12/16 20:00 78 06/12/16 18:02 17 06/12/16 18:00 77 06/12/16 16:00 99.0 79 16 150/68 97 06/12/16 16:00 71 06/12/16 14:00 71 06/13/16 06/13/16 06/13/16 07:00 15:00 23:00 Intake Total 283 ml Output Total 1050 ml Balance -767 ml Result Diagram: 06/12/16 1300 06/13/16 0130 Laboratory Results Laboratory Tests Test 06/13/16 01:30 Potassium Level 3.3 MEQ/L Culture Results Microbiology Date/Time Procedure Status Source Growth 06/11/16 16:15 Aerobic Blood Culture - Preliminary Resulted Blood Peripheral NO GROWTH IN 2 DAYS 06/11/16 16:15 Anaerobic Blood Culture - Preliminary Resulted Blood Peripheral NO GROWTH IN 2 DAYS 06/11/16 16:20 Aerobic Blood Culture - Preliminary Resulted Blood Peripheral NO GROWTH IN 2 DAYS 06/11/16 16:20 Anaerobic Blood Culture - Preliminary Resulted Blood Peripheral NO GROWTH IN 2 DAYS 06/11/16 17:09 Urine Culture - Final Complete Urine Catheterized Urine NO GROWTH IN 48 HOURS. 06/12/16 16:00 Legionella Antigen - Final Complete Urine Catheterized Urine PRESUMPTIVE NEGATIVE FOR LEGIONELLA P... 06/12/16 16:00 Streptococcus pneumoniae Antigen (M - Final Complete Urine Catheterized Urine PRESUMPTIVE NEGATIVE FOR STREPTOCOCCU... 06/12/16 16:01 Influenza Types A,B Antigen (MAGED) - Final Complete Nasal Washing NEGATIVE FOR FLU A AND B ANTIGEN.... Administered Medications Medications (Trade) Dose Ordered Sig/Tj Route PRN Reason Start Time Stop Time Status Last Admin Dose Admin Potassium Chloride/Sodium Chloride (NS + KCl 20 Meq Inj) 1,000 ml @ 50 mls/hr Q20H IV 06/11/16 18:00 06/13/16 01:21 IV Flush (NS Flush) 2 ml BID IV FLUSH 06/11/16 21:00 06/13/16 09:03 Chlorhexidine Gluconate 3 pack 3 pack Taper DAILY@04 TOP 06/12/16 04:00 06/08/17 03:59 06/13/16 04:00 Piperacillin Sod/ Tazobactam Sod 50 ml @ 100 mls/hr Q8H IV 06/11/16 18:00 06/13/16 09:02 Potassium Chloride 100 ml @ 50 mls/hr Q2H PRN IV For Potassium 2.8 - 3.2 mEq/L 06/11/16 16:45 06/12/16 17:03 Potassium Chloride 100 ml @ 25 mls/hr UNSCH PRN IV For Potassium 3.3 - 3.5 mEq/L 06/11/16 16:45 06/13/16 05:00 Sodium Phosphate/ Sodium Chloride (Sodium Phosphate Inj/NS 250 ml Inj) 250 ml @ 42 mls/hr UNSCH PRN IV For Phosphorus < 2.5 mg/dL 06/11/16 16:45 06/12/16 00:45 Aspirin (Aspirin Chew) 81 mg DAILY CHEW 06/12/16 09:00 06/13/16 09:02 Budesonide/ Formoterol Fumarate 2 puff 2 puff BID INH 06/11/16 21:00 06/12/16 21:11 Azithromycin/ Sodium Chloride (Zithromax Inj/ NS 250 ml Inj) 250 ml @ 250 mls/hr Q24H IV 06/11/16 18:00 06/12/16 17:02 Ondansetron HCl (Zofran Inj) 4 mg Q6HR PRN IV PUSH vomiting/nausea 06/11/16 17:30 06/13/16 09:01 Hydralazine HCl (Apresoline Inj) 20 mg Q4H PRN IV PUSH SYS BP GREATER THAN 160 MMHG 06/12/16 07:15 06/13/16 00:04 Metoprolol Tartrate (Lopressor) 50 mg Q8HR PO 06/12/16 14:00 06/13/16 13:02 Amlodipine Besylate (Norvasc) 5 mg DAILY PO 06/12/16 09:00 06/13/16 09:02 Losartan Potassium (Cozaar) 100 mg DAILY PO 06/12/16 09:00 06/13/16 09:02 Acetaminophen/ Hydrocodone Bitart ([place] 7.5-325 Mg) 1 tab Q4H PRN PO pain 4-10 06/12/16 11:30 06/13/16 13:02 Objective Remarks GENERAL: Middle aged male, sitting up in bed in nad, eating lunch SKIN: Warm and dry. HEAD: Normocephalic. EYES: No injection or drainage. NECK: Supple, trachea midline. CARDIOVASCULAR: Regular rate and rhythm RESPIRATORY: Breath sounds equal bilaterally. No accessory muscle use. GASTROINTESTINAL: Abdomen soft, non-tender, nondistended. EXTREMITIES: No cyanosis NEUROLOGICAL: No obvious focal deficit. Awake, alert, and oriented x3. Assessment/Plan Problem List: (1) Neck mass Status: Acute Plan: --awaiting records --diagnosed with left tongue cancer and treatment with chemoradiation 2 years ago in [facility] --2 months ago noticed increased left neck swelling --was seen by Dr. Chaz Ye 10 days ago and underwent fine-needle aspiration biopsy which was non-diagnostic. --CT soft tissue neck showed large retromandibular mass on left with adjacent matted jugular chain adenopathy and isolated abnormal appearing nodes in the posterior left neck. Assessment 71y/o male with history of head and neck cancer, admitted with syncope, nausea, weakness. h/o Hypertension. Atrial fibrillation. Plan 1. await records from patient's drTomeka in [facility]. records request has been sent 2. will need core needle biopsy of neck mass as previous fine needle biopsy was non-diagnostic. Attending Statement The exam, history, and the medical decision-making described in the above note were completed with the assistance of the mid-level provider. I reviewed and agree with the findings presented. I attest that I had a [id number] encounter with the patient on the same day, and personally performed and documented my assessment and findings in the medical record. Non-diagnostic bx at ENT office. Will ask IR for an US guided biopsy of the left neck mass. discussed with patient. He is agreeable. Colleen Dey Jun 13, 2016 13:15 Rey Ojeda MD Jun 13, 2016 19:57
--- NOTE | 2016-06-13 13:35 | EKG ---
Date Performed: 06/12/2016 Time Performed: 09:39:08 PTAGE: 71 years EKG: Sinus bradycardia with PAC(s). Prolonged QT interval Lateral ST changes are nonspecific Com pared to previous tracing, patient is no longer in atrial fibrillation. Clinical correlation recomme nded regarding the ST-T abnormality which is new. Borderline ECG PREVIOUS TRACING : 06/11/2016 13.14 DOCTOR: Bin Velasquez Interpretating Date/Time 06/13/2016 13:33:40
--- NOTE | 2016-06-13 13:35 | HHI.PR ---
Subjective Remarks Follow up for hypotension, syncope, NSTEMI and neck mass. Mr. Mcclelland complains of headache. Denies any chest pain, shortness of breath, fever, chills. Objective Vitals Vital Signs Date Time Temp Pulse Resp B/P Pulse Ox O2 Delivery O2 Flow Rate FiO2 06/13/16 12:00 99.2 77 16 135/63 95 06/13/16 12:00 76 06/13/16 08:00 81 06/13/16 08:00 98.5 88 19 181/86 94 06/13/16 06:00 81 06/13/16 04:00 98.5 83 20 160/70 94 06/13/16 04:00 83 06/13/16 02:00 83 06/13/16 00:00 98.5 77 20 182/76 95 06/13/16 00:00 77 06/12/16 22:00 81 06/12/16 20:00 98.6 78 22 161/72 97 06/12/16 20:00 78 06/12/16 18:02 17 06/12/16 18:00 77 06/12/16 16:00 99.0 79 16 150/68 97 06/12/16 16:00 71 06/12/16 14:00 71 I/O 06/12/16 06/12/16 06/12/16 06/13/16 06/13/16 06/13/16 07:00 15:00 23:00 07:00 15:00 23:00 Intake Total 1088 ml 1125 ml 1282 ml 283 ml Output Total 800 ml 775 ml 475 ml 1050 ml Balance 288 ml 350 ml 807 ml -767 ml Intake Oral 240 ml 120 ml IV Total 1088 ml 1125 ml 1042 ml 163 ml Output Urine Total 800 ml 775 ml 475 ml 1050 ml # Bowel Movements 1 0 0 0 Result Diagram: 06/12/16 1300 06/13/16 0130 Imaging Last Impressions Chest X-Ray 06/12/16 0000 Signed Impressions: Service Date/Time: Sunday, June 12, 2016 03:33 - CONCLUSION: Improved aeration Perry Wells MD Head CT 06/11/16 1328 Signed Impressions: Service Date/Time: Saturday, June 11, 2016 15:09 - CONCLUSION: Negative for acute intracranial process. Air in the temporal fossa on the right. Correlation is suggested. Guillaume Mims MD FACR Neck Magnetic Resonance Angiography 06/11/16 0000 Signed Impressions: Service Date/Time: Saturday, June 11, 2016 17:26 - CONCLUSION: There is no hemodynamically significant of stenosis. Guillaume Mims MD FACR Head Magnetic Resonance Angiography 06/11/16 0000 Signed Impressions: Service Date/Time: Saturday, June 11, 2016 17:26 - CONCLUSION: Atherosclerotic intracranial vascular disease as described above. Guillaume Mims MD FACR CT Angiography 06/11/16 0000 Signed Impressions: Service Date/Time: Saturday, June 11, 2016 15:12 - CONCLUSION: 1. Cardiomegaly with moderate interstitial edema. 2. There is no evidence for central pulmonary emboli. 3. Marked coronary artery calcifications. 4. Prominent pulmonary arteries suggesting pulmonary artery hypertension. Guillaume Mims MD FACR Brain MRI 06/11/16 0000 Signed Impressions: Service Date/Time: Saturday, June 11, 2016 17:26 - CONCLUSION: There is no evidence for edema or infarction. Guillaume Mims MD FACR Abdomen/Pelvis CT 06/11/16 0000 Signed Impressions: Service Date/Time: Saturday, June 11, 2016 15:12 - CONCLUSION: Minimal gallbladder wall thickening. Otherwise, benign appearing gallbladder. I do not see etiology for patient's abdominal pain. Guillaume Mims MD FACR Objective Remarks GENERAL: AOX3, NAD. SKIN: Warm and dry. HEAD: Normocephalic. EYES: No scleral icterus. No injection or drainage. NECK: Supple, trachea midline. No JVD or lymphadenopathy. left submandibular mass noted. CARDIOVASCULAR: Regular rate and rhythm without murmurs, gallops, or rubs. RESPIRATORY: Breath sounds equal bilaterally. No accessory muscle use. GASTROINTESTINAL: Abdomen soft, non-tender, nondistended. MUSCULOSKELETAL: No cyanosis, or edema. BACK: Nontender without obvious deformity. No CVA tenderness. Procedures Echo 06/12/2016 The cavity size was normal. Wall thickness was normal. Systolic function was normal. The estimated ejection fraction was in the range of 55% to 60%. Wall motion was normal; there were no regional wall motion abnormalities. A/P Problem List: (1) Neck mass ICD Code: R22.1 Status: Acute (2) Syncope ICD Code: R55 Status: Acute (3) Atrial fibrillation with RVR ICD Code: I48.91 Status: Acute Assessment and Plan Mr. Mcclelland is a pleasant 71 year old male with a history of paroxysmal Afib, head and neck squamous cell cancer and a new left submandibular mass s/p FNA 10 days prior to this admission, admitted to the hospital on 06/11/2016 due to severe headache, possible syncope and hypotension. Hypotension noted by EMS and in the ED but patient responded to fluid well. He was started on Zosyn and azithromycin for suspected sepsis. He sustained acute kidney injury with creatinine 1.5. Troponin was 0.12 but later increased to 5.15. Cardiology evaluated patient and recommends cardiac cath prior to discharge. - Syncope - Intractable headache. - Syncope was likely due to hypotension. - MR studies are negative so far including MRA neck, MRI brain. - Neurology following. - Will try Fioricet PRN for headache. - Currently blood pressure within reasonable range. - Left submandibular mass - History of Head and neck cancer - Previous bx by ENT in the outpatient setting was non-diagnostic. - Hematology/Oncology following. Patient will likely need a CT guided bx. - NSTEMI - Afib with RVR - Hypertension - 2D echo done. LVEF preserved. - Continue Losartan 100mg Qday, Metoprolol 50mg Q8hrs, Amlodipine 5mg Qday - [id number] score 2 (age, HTN). - Heparin was discontinued due to hematuria. - Start Lipitor 40mg Qday. - Cardiac cath in near future per cardiology. - Suspected sepsis - No imaging evidence of pneumonia, Microbiology work up negative, patient is afebrile. - Lactic acid was 1.4 - Will discontinue abx for now and observe off abx. - Acute kidney injury. Resolved. Creatinine 1.50 --> 0.99. Full code. SCDs for now. If there is no further hematuria, consider starting heparin 5000 units Q12hrs for DVT prophylaxis on 06/14/2016. Problem Qualifiers (1) Syncope: Qualified Code: R55 - Syncope, unspecified syncope type Oscar Bernal DO Jun 13, 2016 13:35
[2016-06-13] MEDS: AZITHROMYCIN INJ 500 MG in SODIUM CHLOR 0.9% 250 ML INJ 250 ML IV SCH (17:25)
[2016-06-13] MEDS: ACETAMIN 325 MG/BUTALBITAL 50 MG/CAFFEINE 40 MG TAB PO PRN (21:11)
[2016-06-14] VITALS (13 sets, daily range): BP systolic 104–168; BP diastolic 46–90; PULSE 68–98; RESP 16–22; TEMP 98.1–98.6; O2SAT 95–97
[2016-06-14] MEDS: CHLORHEXIDINE GLUCONATE 2 % 1 PACK (2 CLOTHS) TOP SCH (04:00)
[2016-06-14] MEDS: hydrALAZINE HCL 20 MG/ML VIAL IV PUSH PRN (04:20)
[2016-06-14 05:25] LABS: HEMATOCRIT 34.3 % (39.0-51.0); MEAN CELL VOLUME 87.9 FL (80.0-100.0); MEAN CORPUSCULAR HEMOGLOBIN 30.6 PG (27.0-34.0); MEAN CORPUSCULAR HGB CONC 34.8 % (32.0-36.0); PLATELET COUNT 218 TH/MM3 (150-450); RED CELL DISTRIBUTION WIDTH 12.8 % (11.6-17.2); REVIEW FLAG FINAL; WHITE BLOOD COUNT 8.7 TH/MM3 (4.0-11.0)
[2016-06-14 05:29] LABS: INTERNATIONAL NORMALIZED RATIO 1.1 RATIO; PROTHROMBIN TIME - PATIENT 11.8 SEC (9.8-11.6)
[2016-06-14] MEDS: METOPROLOL TARTRATE 50 MG TAB PO SCH ×3 (06:04→22:45)
[2016-06-14] MEDS: POTASSIUM CHLOR 40 MEQ PREMIX 100 ML IV PRN ×2 (06:04→09:19)
[2016-06-14] MEDS: ACETAMIN 325 MG/BUTALBITAL 50 MG/CAFFEINE 40 MG TAB PO PRN ×3 (06:21→22:46)
[2016-06-14] MEDS: SODIUM CHLORIDE 0.9% FLUSH 5 ML FLUSH IV FLUSH SCH ×2 (09:00→22:50)
[2016-06-14] MEDS: BUDESONIDE-FORMOTEROL 80/4.5 MCG INHALER INH SCH ×2 (09:00→21:00)
[2016-06-14] MEDS: amLODIPine BESYLATE 5 MG TAB PO SCH (09:15)
[2016-06-14] MEDS: LOSARTAN 50 MG TAB PO SCH (09:15)
[2016-06-14] MEDS: ONDANSETRON HCL 4 MG/2 ML VIAL IV PUSH PRN ×2 (09:17→22:45)
[2016-06-14] MEDS: NS + KCL 20 MEQ INJ 1,000 ML IV SCH (09:19)
--- NOTE | 2016-06-14 12:13 | PD.ONC.PN ---
Subjective Subjective Remarks Afebrile overnight. Patient resting comfortably, waiting to go down for neck mass biopsy. He is hungry. His headache feels better after some pain medication this AM. Objective Data Date Time Temp Pulse Resp B/P Pulse Ox O2 Delivery O2 Flow Rate FiO2 06/14/16 08:00 71 06/14/16 08:00 98.5 71 16 147/72 95 06/14/16 07:39 96 06/14/16 04:00 98.1 75 20 168/90 96 06/14/16 04:00 75 06/14/16 00:00 98.5 68 22 149/70 96 06/14/16 00:00 70 06/13/16 20:00 71 06/13/16 20:00 98.4 71 20 140/62 94 06/13/16 16:00 98.4 71 16 137/64 98 06/13/16 16:00 71 06/14/16 06/14/16 06/14/16 07:00 15:00 23:00 Intake Total 241 ml Output Total 600 ml Balance -359 ml Result Diagram: 06/14/16 0400 06/14/16 0400 Laboratory Results Laboratory Tests Test 06/14/16 04:00 White Blood Count 8.7 TH/MM3 Red Blood Count 3.90 MIL/MM3 Hemoglobin 11.9 GM/DL Hematocrit 34.3 % Mean Corpuscular Volume 87.9 FL Mean Corpuscular Hemoglobin 30.6 PG Mean Corpuscular Hemoglobin 34.8 % Concent Red Cell Distribution Width 12.8 % Platelet Count 218 TH/MM3 Mean Platelet Volume 8.2 FL Prothrombin Time 11.8 SEC Prothromb Time International 1.1 RATIO Ratio Potassium Level 3.2 MEQ/L Culture Results Microbiology Date/Time Procedure Status Source Growth 06/11/16 16:15 Aerobic Blood Culture - Preliminary Resulted Blood Peripheral NO GROWTH IN 3 DAYS 06/11/16 16:15 Anaerobic Blood Culture - Preliminary Resulted Blood Peripheral NO GROWTH IN 3 DAYS 06/11/16 16:20 Aerobic Blood Culture - Preliminary Resulted Blood Peripheral NO GROWTH IN 3 DAYS 06/11/16 16:20 Anaerobic Blood Culture - Preliminary Resulted Blood Peripheral NO GROWTH IN 3 DAYS 06/11/16 17:09 Urine Culture - Final Complete Urine Catheterized Urine NO GROWTH IN 48 HOURS. 06/12/16 16:00 Legionella Antigen - Final Complete Urine Catheterized Urine PRESUMPTIVE NEGATIVE FOR LEGIONELLA P... 06/12/16 16:00 Streptococcus pneumoniae Antigen (M - Final Complete Urine Catheterized Urine PRESUMPTIVE NEGATIVE FOR STREPTOCOCCU... 06/12/16 16:01 Influenza Types A,B Antigen (MAGED) - Final Complete Nasal Washing NEGATIVE FOR FLU A AND B ANTIGEN.... 06/13/16 21:44 Legionella Antigen - Final Complete Urine Catheterized Urine PRESUMPTIVE NEGATIVE FOR LEGIONELLA P... 06/13/16 21:44 Streptococcus pneumoniae Antigen (M - Final Complete Urine Catheterized Urine PRESUMPTIVE NEGATIVE FOR STREPTOCOCCU... Administered Medications Medications (Trade) Dose Ordered Sig/Tj Route PRN Reason Start Time Stop Time Status Last Admin Dose Admin Potassium Chloride/Sodium Chloride (NS + KCl 20 Meq Inj) 1,000 ml @ 50 mls/hr Q20H IV 06/11/16 18:00 06/14/16 09:19 IV Flush (NS Flush) 2 ml BID IV FLUSH 06/11/16 21:00 06/13/16 21:11 Chlorhexidine Gluconate 3 pack 3 pack Taper DAILY@04 TOP 06/12/16 04:00 06/08/17 03:59 06/14/16 04:00 Potassium Chloride 100 ml @ 50 mls/hr Q2H PRN IV For Potassium 2.8 - 3.2 mEq/L 06/11/16 16:45 06/14/16 09:19 Potassium Chloride 100 ml @ 25 mls/hr UNSCH PRN IV For Potassium 3.3 - 3.5 mEq/L 06/11/16 16:45 06/13/16 05:00 Sodium Phosphate/ Sodium Chloride (Sodium Phosphate Inj/NS 250 ml Inj) 250 ml @ 42 mls/hr UNSCH PRN IV For Phosphorus < 2.5 mg/dL 06/11/16 16:45 06/12/16 00:45 Budesonide/ Formoterol Fumarate (Symbicort 80-4.5 Mcg Inh) 2 puff BID INH 06/11/16 21:00 06/13/16 21:10 Ondansetron HCl (Zofran Inj) 4 mg Q6HR PRN IV PUSH vomiting/nausea 06/11/16 17:30 06/14/16 09:17 Hydralazine HCl (Apresoline Inj) 20 mg Q4H PRN IV PUSH SYS BP GREATER THAN 160 MMHG 06/12/16 07:15 06/14/16 04:20 Metoprolol Tartrate (Lopressor) 50 mg Q8HR PO 06/12/16 14:00 06/14/16 06:04 Amlodipine Besylate (Norvasc) 5 mg DAILY PO 06/12/16 09:00 06/14/16 09:15 Losartan Potassium (Cozaar) 100 mg DAILY PO 06/12/16 09:00 06/14/16 09:15 Acetaminophen/ Hydrocodone Bitart ([place] 7.5-325 Mg) 1 tab Q4H PRN PO pain 4-10 06/12/16 11:30 06/13/16 18:02 Acetaminophen/ Butalbital/ Caffeine (Fioricet 325-50-40) 1 tab Q8H PRN PO headache 06/13/16 20:15 06/14/16 06:21 Objective Remarks GENERAL: Middle aged male, lying in bed, watching TV SKIN: Warm and dry. HEAD: Normocephalic. EYES: No injection or drainage. NECK: Supple, trachea midline. +left sided neck mass, tender to palpation. CARDIOVASCULAR: Regular rate and rhythm RESPIRATORY: Breath sounds equal bilaterally. No accessory muscle use. GASTROINTESTINAL: Abdomen soft, non-tender, nondistended. EXTREMITIES: No cyanosis NEUROLOGICAL: No obvious focal deficit. Awake, alert, and oriented x3. Assessment/Plan Problem List: (1) Neck mass Status: Acute Plan: --awaiting records--I called and left a message with [facility] E[facility] medical records, awaiting return phone call. --diagnosed with left tongue cancer and treatment with chemoradiation 2 years ago in [facility] [place] --2 months ago noticed increased left neck swelling --was seen by Dr. Chaz Ye 10 days ago and underwent fine-needle aspiration biopsy which was non-diagnostic. --CT soft tissue neck showed large retromandibular mass on left with adjacent matted jugular chain adenopathy and isolated abnormal appearing nodes in the posterior left neck. Assessment 71y/o male with history of head and neck cancer, admitted with syncope, nausea, weakness. h/o Hypertension. Atrial fibrillation. Plan 1. biopsy today 2. await records. Attending Statement The exam, history, and the medical decision-making described in the above note were completed with the assistance of the mid-level provider. I reviewed and agree with the findings presented. I attest that I had a [id number] encounter with the patient on the same day, and personally performed and documented my assessment and findings in the medical record. Further recs based on biopsy. Plans for U/S guided biopsy Colleen Dey Jun 14, 2016 12:13 Rey Ojeda MD Jun 14, 2016 22:12
--- NOTE | 2016-06-14 14:00 | HHI.PR ---
Subjective Remarks Patient laying in bed complaining of headache but no dizziness or lightheaded No blurry vision no fever or chills He is going for CT-guided biopsy of the neck mass today Objective Vitals Vital Signs Date Time Temp Pulse Resp B/P Pulse Ox O2 Delivery O2 Flow Rate FiO2 06/14/16 12:00 76 06/14/16 12:00 98.1 75 16 145/70 95 06/14/16 08:00 71 06/14/16 08:00 98.5 71 16 147/72 95 06/14/16 07:39 96 06/14/16 04:00 98.1 75 20 168/90 96 06/14/16 04:00 75 06/14/16 00:00 98.5 68 22 149/70 96 06/14/16 00:00 70 06/13/16 20:00 71 06/13/16 20:00 98.4 71 20 140/62 94 06/13/16 16:00 98.4 71 16 137/64 98 06/13/16 16:00 71 I/O 06/13/16 06/13/16 06/13/16 06/14/16 06/14/16 06/14/16 07:00 15:00 23:00 07:00 15:00 23:00 Intake Total 283 ml 1167 ml 1002 ml 241 ml Output Total 1050 ml 600 ml 500 ml 600 ml Balance -767 ml 567 ml 502 ml -359 ml Intake Oral 120 ml 420 ml 240 ml 0 ml IV Total 163 ml 747 ml 762 ml 241 ml Output Urine Total 1050 ml 600 ml 500 ml 600 ml # Bowel Movements 0 0 0 Result Diagram: 06/14/16 0400 06/14/16 0400 Objective Remarks GENERAL: This is a well-nourished, well-developed patient, in no apparent distress. SKIN: No rashes, warm and dry HEAD: Atraumatic. Normocephalic. EYES: Pupils equal round and reactive. Extraocular motions intact. No scleral icterus. ENT: Nose without bleeding, or drainage, Airway patent. NECK: Trachea midline. Positive swelling and induration on the left side of the neck submandibular CARDIOVASCULAR: Regular rate and rhythm without murmurs, gallops, or rubs. RESPIRATORY: Fair air entry bilaterally. No wheezes, rales, or rhonchi. GASTROINTESTINAL: Abdomen soft, non-tender, nondistended. Positive bowel sounds MUSCULOSKELETAL: Extremities without clubbing, cyanosis, or edema. Pedal pulses appreciated NEUROLOGICAL: Awake and alert. Moves all extremity. Normal speech.no focal neurological deficit Procedures Echo 06/12/2016 The cavity size was normal. Wall thickness was normal. Systolic function was normal. The estimated ejection fraction was in the range of 55% to 60%. Wall motion was normal; there were no regional wall motion abnormalities. A/P Problem List: (1) Neck mass ICD Code: R22.1 Status: Acute (2) Syncope ICD Code: R55 Status: Acute (3) Atrial fibrillation with RVR ICD Code: I48.91 Status: Acute Assessment and Plan Mr. Mcclelland is a pleasant 71 year old male with a history of paroxysmal Afib, head and neck squamous cell cancer and a new left submandibular mass s/p FNA 10 days prior to this admission, admitted to the hospital on 06/11/2016 due to severe headache, possible syncope and hypotension. Hypotension noted by EMS and in the ED but patient responded to fluid well. He was started on Zosyn and azithromycin for suspected sepsis. He sustained acute kidney injury with creatinine 1.5. Troponin was 0.12 but later increased to 5.15. Cardiology evaluated patient and recommends cardiac cath prior to discharge. 06/14/16: Plan for CT-guided biopsy of the neck mass today, hypokalemia replaced - Syncope - Intractable headache. - Syncope was likely due to hypotension. - MR studies are negative so far including MRA neck, MRI brain. - Neurology following. - Fioricet PRN for headache. - Currently blood pressure within reasonable range. - Left submandibular mass - History of Head and neck cancer - Previous bx by ENT in the outpatient setting was non-diagnostic. - Hematology/Oncology following. CT guided bx. - NSTEMI - Afib with RVR - Hypertension - 2D echo done. LVEF preserved. - Continue Losartan 100mg Qday, Metoprolol 50mg Q8hrs, Amlodipine 5mg Qday - [id number] score 2 (age, HTN). - Heparin was discontinued due to hematuria. - Start Lipitor 40mg Qday. - Cardiac cath in near future per cardiology. - Suspected sepsis - No imaging evidence of pneumonia, Microbiology work up negative, patient is afebrile. - Lactic acid was 1.4 - observe off abx. - Acute kidney injury. Resolved. Monitor BMP Full code. SCDs for now. Due to hematuria Problem Qualifiers (1) Syncope: Qualified Code: R55 - Syncope, unspecified syncope type Saniya Fernández MD Jun 14, 2016 14:00
[2016-06-14] MEDS ORDERED: LIDOCAINE 1%/EPINEPHrine 1:100,000 SOLN 20 ML VIAL ONE (14:24)
[2016-06-14] MEDS ORDERED: MIDAZOLAM HCL 2 MG/2 ML VIAL ONE (14:57)
--- NOTE | 2016-06-14 16:12 | RADRPT ---
EXAM DATE/TIME: 06/14/2016 15:14 [place] COMPARISON: No previous studies available for comparison. INDICATIONS : Left neck mass Left neck mass SEDATION TIME: 30 minutes BIOPSY SITE: Left neck MEDICATION(S): 1.) 2 mg midazolam (Versed) IV 2.) 100 mcg fentanyl (Sublimaze) IV DEVICE(S): 1.) 18 gauge Temno core biopsy needle MEDICAL HISTORY : None. SURGICAL HISTORY : None. ENCOUNTER: Initial ACUITY: 1 day PAIN SCORE: 6/10 LOCATION: Left neck A total of two core specimen(s) were obtained and sent to the laboratory for pathologic evaluation. PROCEDURE: 1. CT guided soft tissue, left biopsy. 2. Conscious sedation with continuous EKG and oximetry monitoring. 3. EKG and oximetry remained stable throughout the procedure. Prior to the procedure informed consent was obtained. Any appropriate prior imaging studies were rev iewed. The site was prepped in a sterile fashion. Full sterile technique was used, including cap, mask, mahamed rile gloves and gown and a large sterile sheet. Hand hygiene and 2% chlorhexidine and/or betadine/al cohol prep was utilized per protocol for cutaneous antisepsis. The skin and subcutaneous tissues wer e infiltrated with local anesthetic solution. With CT guidance the previously identified target was localized. Biopsy was performed using the presc ribed needle as above. Adequate hemostasis was obtained with compression at the puncture site. Follow-up CT scan reveals no hemorrhage. The patient tolerated the procedure well and there were no complications. The patient was returned to the Radiology Outpatient Unit in stable condition. CONCLUSION: Uncomplicated CT guided biopsy. Tang Mckeon MD on June 14, 2016 at 16:10 Board Certified Radiologist. This report was verified electronically.
[2016-06-15] VITALS (19 sets, daily range): BP systolic 100–161; BP diastolic 52–91; PULSE 71–98; RESP 8–20; TEMP 97.9–99.8; O2SAT 91–100
[2016-06-15] MEDS: METOPROLOL TARTRATE 50 MG TAB PO SCH ×2 (05:14→12:56)
[2016-06-15] MEDS: ACETAMIN 325 MG/BUTALBITAL 50 MG/CAFFEINE 40 MG TAB PO PRN (06:10)
[2016-06-15] MEDS: hydrALAZINE HCL 20 MG/ML VIAL IV PUSH PRN (06:10)
[2016-06-15] MEDS: NS + KCL 20 MEQ INJ 1,000 ML IV SCH (06:57)
[2016-06-15] MEDS: amLODIPine BESYLATE 5 MG TAB PO SCH (09:44)
[2016-06-15] MEDS: LOSARTAN 50 MG TAB PO SCH (09:44)
[2016-06-15] MEDS: ACETAMINOPHEN/HYDROcodone 325 MG/7.5 MG TAB PO PRN (09:58)
--- NOTE | 2016-06-15 10:03 | PD.CARD.PN ---
Subjective Subjective Remarks no complaints no chest pain Objective Medications Current Medications Medications (Trade) Dose Ordered Sig/Tj Route Start Time Stop Time Status Last Admin Terbutaline Sulfate 1 mg 1 mg UNSCH PRN SQ 06/11/16 16:15 (NS + KCl 20 Meq Inj) 1,000 ml @ 50 mls/hr Q20H IV 06/11/16 18:00 06/14/16 09:19 (NS Flush) 2 ml UNSCH PRN IV FLUSH 06/11/16 16:30 (NS Flush) 2 ml BID IV FLUSH 06/11/16 21:00 06/14/16 22:50 Miscellaneous Information 1 Q361D XX 06/11/16 16:30 (Chlorhexidine 2% Cloth) 3 pack Taper DAILY@04 TOP 06/12/16 04:00 06/08/17 03:59 06/14/16 04:00 Chlorhexidine Gluconate 3 pack 3 pack UNSCH PRN TOP 06/11/16 16:30 Potassium Chloride 100 ml @ 50 mls/hr Q2H PRN IV 06/11/16 16:45 06/14/16 09:19 (KCl 20 Meq Premix Inj) 100 ml @ 50 mls/hr Q2H PRN IV 06/11/16 16:45 Potassium Chloride 40 meq 40 meq UNSCH PRN PO/TUBE 06/11/16 16:45 Potassium Chloride 100 ml @ 25 mls/hr UNSCH PRN IV 06/11/16 16:45 06/13/16 05:00 Potassium Chloride 100 ml @ 50 mls/hr Q2H PRN IV 06/11/16 16:45 (Magnesium Sulfate Inj/NS Inj) 100 ml @ 50 mls/hr UNSCH PRN IV 06/11/16 16:45 Magnesium Oxide 800 mg 800 mg UNSCH PRN PO 06/11/16 16:45 (Magnesium Sulfate Inj/NS Inj) 100 ml @ 50 mls/hr UNSCH PRN IV 06/11/16 16:45 Potassium Phosphate 2000 mg 2,000 mg Q4H PRN PO 06/11/16 16:45 (Sodium Phosphate Inj/NS 250 ml Inj) 250 ml @ 42 mls/hr UNSCH PRN IV 06/11/16 16:45 06/12/16 00:45 (KCl 40 Meq/30 ml Liq) 40 meq UNSCH PRN PO/TUBE 06/11/16 16:45 Potassium Phosphate 2000 mg 2,000 mg UNSCH PRN PO/TUBE 06/11/16 16:45 (Potassium Phosphate Inj/NS 250 ml Inj) 260 ml @ 42 mls/hr UNSCH PRN IV 06/11/16 16:45 (Symbicort 80-4.5 Mcg Inh) 2 puff BID INH 06/11/16 21:00 06/13/16 21:10 (Zofran Inj) 4 mg Q6HR PRN IV PUSH 06/11/16 17:30 06/14/16 22:45 (Apresoline Inj) 20 mg Q4H PRN IV PUSH 06/12/16 07:15 06/15/16 06:10 (Lopressor) 50 mg Q8HR PO 06/12/16 14:00 06/15/16 05:14 (Norvasc) 5 mg DAILY PO 06/12/16 09:00 06/15/16 09:44 (Cozaar) 100 mg DAILY PO 06/12/16 09:00 06/15/16 09:44 ([place] 7.5-325 Mg) 1 tab Q4H PRN PO 06/12/16 11:30 06/13/16 18:02 (Fioricet 325-50-40) 1 tab Q8H PRN PO 06/13/16 20:15 06/15/16 06:10 Vital Signs / I&O Vital Signs Date Time Temp Pulse Resp B/P Pulse Ox O2 Delivery O2 Flow Rate FiO2 06/15/16 09:00 98.7 86 18 159/76 97 06/15/16 06:00 80 06/15/16 05:00 81 06/15/16 04:54 98.4 73 18 161/91 97 06/15/16 04:00 81 06/15/16 03:00 71 06/15/16 02:00 71 06/15/16 01:00 79 06/15/16 00:20 98.4 98 18 134/56 97 06/15/16 00:00 83 06/14/16 23:00 96 06/14/16 22:00 98 06/14/16 21:00 87 06/14/16 20:00 86 06/14/16 19:53 96 21 06/14/16 19:20 98.4 87 18 138/67 97 06/14/16 19:00 71 06/14/16 16:36 98.6 92 18 104/46 96 06/14/16 12:00 76 06/14/16 12:00 98.1 75 16 145/70 95 I/O 06/14/16 06/14/16 06/14/16 06/15/16 06/15/16 06/15/16 07:00 15:00 23:00 07:00 15:00 23:00 Intake Total 241 ml 985 ml 240 ml Output Total 600 ml 1900 ml 800 ml Balance -359 ml -915 ml -560 ml Intake Oral 0 ml 240 ml IV Total 241 ml 985 ml Output Urine Total 600 ml 1900 ml 800 ml # Bowel Movements 0 Physical Exam GENERAL: Well-nourished, well-developed patient. SKIN: Warm and dry. HEAD: Normocephalic. EYES: No scleral icterus. No injection or drainage. NECK: Supple, trachea midline. No JVD or lymphadenopathy. CARDIOVASCULAR: Regular rate and rhythm without murmurs, gallops, or rubs. RESPIRATORY: Breath sounds equal bilaterally. No accessory muscle use. GASTROINTESTINAL: Abdomen soft, non-tender, nondistended. EXTREMITIES: No cyanosis, or edema. NEUROLOGICAL: Awake, alert, and oriented x 3. Non-focal. Laboratory Laboratory Tests Test 06/14/16 14:24 Potassium Level 3.8 MEQ/L Imaging Last Impressions Soft Tissue Biopsy 06/13/16 0000 Signed Impressions: Service Date/Time: Tuesday, June 14, 2016 15:14 - CONCLUSION: Uncomplicated CT guided biopsy. Tang Mckeon MD Chest X-Ray 06/12/16 0000 Signed Impressions: Service Date/Time: Sunday, June 12, 2016 03:33 - CONCLUSION: Improved aeration Perry Wells MD Head CT 06/11/16 1328 Signed Impressions: Service Date/Time: Saturday, June 11, 2016 15:09 - CONCLUSION: Negative for acute intracranial process. Air in the temporal fossa on the right. Correlation is suggested. Guillaume Mims MD FACR Neck Magnetic Resonance Angiography 06/11/16 0000 Signed Impressions: Service Date/Time: Saturday, June 11, 2016 17:26 - CONCLUSION: There is no hemodynamically significant of stenosis. Guillaume Mims MD FACR Head Magnetic Resonance Angiography 06/11/16 0000 Signed Impressions: Service Date/Time: Saturday, June 11, 2016 17:26 - CONCLUSION: Atherosclerotic intracranial vascular disease as described above. Guillaume Mims MD FACR CT Angiography 06/11/16 0000 Signed Impressions: Service Date/Time: Saturday, June 11, 2016 15:12 - CONCLUSION: 1. Cardiomegaly with moderate interstitial edema. 2. There is no evidence for central pulmonary emboli. 3. Marked coronary artery calcifications. 4. Prominent pulmonary arteries suggesting pulmonary artery hypertension. Guillaume Mims MD FACR Brain MRI 06/11/16 0000 Signed Impressions: Service Date/Time: Saturday, June 11, 2016 17:26 - CONCLUSION: There is no evidence for edema or infarction. Guillaume Mims MD FACR Abdomen/Pelvis CT 06/11/16 0000 Signed Impressions: Service Date/Time: Saturday, June 11, 2016 15:12 - CONCLUSION: Minimal gallbladder wall thickening. Otherwise, benign appearing gallbladder. I do not see etiology for patient's abdominal pain. Guillaume Mims MD FACR Assessment and Plan Problem List: (1) NSTEMI (non-ST elevated myocardial infarction) Assessment and Plan: Chest pain free and hemodynamically stable Hematuria in the setting of traumatic [place] ?resolved Need clearance from Urology and Heme/Onc before pursuing LHC +/- PCI. Is neck cancer ?surgery in the near future In the meantime continue aggressive medical management for CAD Encourage out of bed (2) Elevated troponin (3) Atrial fibrillation with RVR (4) Neck mass (5) Hematuria Joey Elder MD Jun 15, 2016 10:03
[2016-06-15] MEDS: ASPIRIN EC 81 MG TABEC PO SCH (12:56)
--- NOTE | 2016-06-15 13:11 | PD.ONC.PN ---
Subjective Subjective Remarks Afebrile overnight. Patient resting comfortably. He is frustrated that he does not have his belongings from [facility]. No chest pain. Still has pain in neck and headache. Objective Data Date Time Temp Pulse Resp B/P Pulse Ox O2 Delivery O2 Flow Rate FiO2 06/15/16 09:00 98.7 86 18 159/76 97 06/15/16 06:00 80 06/15/16 05:00 81 06/15/16 04:54 98.4 73 18 161/91 97 06/15/16 04:00 81 06/15/16 03:00 71 06/15/16 02:00 71 06/15/16 01:00 79 06/15/16 00:20 98.4 98 18 134/56 97 06/15/16 00:00 83 06/14/16 23:00 96 06/14/16 22:00 98 06/14/16 21:00 87 06/14/16 20:00 86 06/14/16 19:53 96 21 06/14/16 19:20 98.4 87 18 138/67 97 06/14/16 19:00 71 06/14/16 16:36 98.6 92 18 104/46 96 06/15/16 06/15/16 06/15/16 07:00 15:00 23:00 Intake Total 240 ml Output Total 800 ml Balance -560 ml Result Diagram: 06/14/16 0400 06/14/16 1424 Laboratory Results Laboratory Tests Test 06/14/16 14:24 Potassium Level 3.8 MEQ/L Culture Results Microbiology Date/Time Procedure Status Source Growth 06/12/16 16:00 Legionella Antigen - Final Complete Urine Catheterized Urine PRESUMPTIVE NEGATIVE FOR LEGIONELLA P... 06/12/16 16:00 Streptococcus pneumoniae Antigen (M - Final Complete Urine Catheterized Urine PRESUMPTIVE NEGATIVE FOR STREPTOCOCCU... 06/12/16 16:01 Influenza Types A,B Antigen (MAGED) - Final Complete Nasal Washing NEGATIVE FOR FLU A AND B ANTIGEN.... 06/13/16 21:44 Legionella Antigen - Final Complete Urine Catheterized Urine PRESUMPTIVE NEGATIVE FOR LEGIONELLA P... 06/13/16 21:44 Streptococcus pneumoniae Antigen (M - Final Complete Urine Catheterized Urine PRESUMPTIVE NEGATIVE FOR STREPTOCOCCU... Administered Medications Medications (Trade) Dose Ordered Sig/Tj Route PRN Reason Start Time Stop Time Status Last Admin Dose Admin Potassium Chloride/Sodium Chloride (NS + KCl 20 Meq Inj) 1,000 ml @ 50 mls/hr Q20H IV 06/11/16 18:00 06/14/16 09:19 IV Flush (NS Flush) 2 ml BID IV FLUSH 06/11/16 21:00 06/14/16 22:50 Chlorhexidine Gluconate 3 pack 3 pack Taper DAILY@04 TOP 06/12/16 04:00 06/08/17 03:59 06/14/16 04:00 Potassium Chloride 100 ml @ 50 mls/hr Q2H PRN IV For Potassium 2.8 - 3.2 mEq/L 06/11/16 16:45 06/14/16 09:19 Potassium Chloride 100 ml @ 25 mls/hr UNSCH PRN IV For Potassium 3.3 - 3.5 mEq/L 06/11/16 16:45 06/13/16 05:00 Sodium Phosphate/ Sodium Chloride (Sodium Phosphate Inj/NS 250 ml Inj) 250 ml @ 42 mls/hr UNSCH PRN IV For Phosphorus < 2.5 mg/dL 06/11/16 16:45 06/12/16 00:45 Budesonide/ Formoterol Fumarate (Symbicort 80-4.5 Mcg Inh) 2 puff BID INH 06/11/16 21:00 06/13/16 21:10 Ondansetron HCl (Zofran Inj) 4 mg Q6HR PRN IV PUSH vomiting/nausea 06/11/16 17:30 06/14/16 22:45 Hydralazine HCl (Apresoline Inj) 20 mg Q4H PRN IV PUSH SYS BP GREATER THAN 160 MMHG 06/12/16 07:15 06/15/16 06:10 Metoprolol Tartrate (Lopressor) 50 mg Q8HR PO 06/12/16 14:00 06/15/16 12:56 Amlodipine Besylate (Norvasc) 5 mg DAILY PO 06/12/16 09:00 06/15/16 09:44 Losartan Potassium (Cozaar) 100 mg DAILY PO 06/12/16 09:00 06/15/16 09:44 Acetaminophen/ Hydrocodone Bitart (Warren 7.5-325 Mg) 1 tab Q4H PRN PO pain 4-10 06/12/16 11:30 06/15/16 09:58 Acetaminophen/ Butalbital/ Caffeine (Fioricet 325-50-40) 1 tab Q8H PRN PO headache 06/13/16 20:15 06/15/16 06:10 Aspirin (Ecotrin Ec) 81 mg DAILY PO 06/15/16 10:15 06/15/16 12:56 Objective Remarks GENERAL: Middle aged male, lying in bed, frustrated but otherwise in nad. SKIN: Warm and dry. HEAD: Normocephalic. EYES: No injection or drainage. NECK: Supple, trachea midline. neck mass, left neck. TTP CARDIOVASCULAR: Regular rate and rhythm RESPIRATORY: Breath sounds equal bilaterally. No accessory muscle use. GASTROINTESTINAL: Abdomen soft, non-tender, nondistended. EXTREMITIES: No cyanosis NEUROLOGICAL: No obvious focal deficit. Awake, alert, and oriented x3. Assessment/Plan Problem List: (1) Neck mass Status: Acute Plan: --awaiting pathology from neck mass biopsy on 06/14 --diagnosed with left tongue cancer and treatment with chemoradiation 2 years ago in [facility] --2 months ago noticed increased left neck swelling --was seen by Dr. Chaz Ye 10 days ago and underwent fine-needle aspiration biopsy which was non-diagnostic. --CT soft tissue neck showed large retromandibular mass on left with adjacent matted jugular chain adenopathy and isolated abnormal appearing nodes in the posterior left neck. Assessment 71y/o male with history of head and neck cancer, admitted with syncope, nausea, weakness. h/o Hypertension. Atrial fibrillation. Plan 1. await pathology from biopsy 2. supportive care. Attending Statement The exam, history, and the medical decision-making described in the above note were completed with the assistance of the mid-level provider. I reviewed and agree with the findings presented. I attest that I had a [id number] encounter with the patient on the same day, and personally performed and documented my assessment and findings in the medical record. Case discussed with Dr. Reza and also Dr. Amador. Patient has acutely decompensated and I agree with emergent PCI/cardiac intervention. We are still awaiting receipt of his medical records from [place] and . 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 Additional imaging studies such as PET scan will be needed outpatient when he is stable. Colleen Dey Jun 15, 2016 13:11 Rey Ojeda MD Jun 15, 2016 20:58
--- NOTE | 2016-06-15 13:12 | HHI.PR ---
Subjective Remarks Resting in bed comfortably, I explained to him in details the conversation with her clinical quality assurance specialist this morning and the need to clarify with oncology and hematology he understand No chest pain or short of breath today, his urine is clear no more hematuria Objective Vitals Vital Signs Date Time Temp Pulse Resp B/P Pulse Ox O2 Delivery O2 Flow Rate FiO2 06/15/16 09:00 98.7 86 18 159/76 97 06/15/16 06:00 80 06/15/16 05:00 81 06/15/16 04:54 98.4 73 18 161/91 97 06/15/16 04:00 81 06/15/16 03:00 71 06/15/16 02:00 71 06/15/16 01:00 79 06/15/16 00:20 98.4 98 18 134/56 97 06/15/16 00:00 83 06/14/16 23:00 96 06/14/16 22:00 98 06/14/16 21:00 87 06/14/16 20:00 86 06/14/16 19:53 96 21 06/14/16 19:20 98.4 87 18 138/67 97 06/14/16 19:00 71 06/14/16 16:36 98.6 92 18 104/46 96 I/O 06/14/16 06/14/16 06/14/16 06/15/16 06/15/16 06/15/16 07:00 15:00 23:00 07:00 15:00 23:00 Intake Total 241 ml 985 ml 240 ml Output Total 600 ml 1900 ml 800 ml Balance -359 ml -915 ml -560 ml Intake Oral 0 ml 240 ml IV Total 241 ml 985 ml Output Urine Total 600 ml 1900 ml 800 ml # Bowel Movements 0 Result Diagram: 06/14/16 0400 06/14/16 1424 Objective Remarks GENERAL: This is a well-nourished, well-developed patient, in no apparent distress. SKIN: No rashes, warm and dry HEAD: Atraumatic. Normocephalic. EYES: Pupils equal round and reactive. Extraocular motions intact. No scleral icterus. ENT: Nose without bleeding, or drainage, Airway patent. NECK: Trachea midline. Positive swelling and induration on the left side of the neck submandibular CARDIOVASCULAR: Regular rate and rhythm without murmurs, gallops, or rubs. RESPIRATORY: Fair air entry bilaterally. No wheezes, rales, or rhonchi. GASTROINTESTINAL: Abdomen soft, non-tender, nondistended. Positive bowel sounds MUSCULOSKELETAL: Extremities without clubbing, cyanosis, or edema. Pedal pulses appreciated NEUROLOGICAL: Awake and alert. Moves all extremity. Normal speech.no focal neurological deficit Procedures Echo 06/12/2016 The cavity size was normal. Wall thickness was normal. Systolic function was normal. The estimated ejection fraction was in the range of 55% to 60%. Wall motion was normal; there were no regional wall motion abnormalities. A/P Problem List: (1) Neck mass ICD Code: R22.1 Status: Acute (2) Syncope ICD Code: R55 Status: Acute (3) Atrial fibrillation with RVR ICD Code: I48.91 Status: Acute Assessment and Plan Mr. Mcclelland is a pleasant 71 year old male with a history of paroxysmal Afib, head and neck squamous cell cancer and a new left submandibular mass s/p FNA 10 days prior to this admission, admitted to the hospital on 06/11/2016 due to severe headache, possible syncope and hypotension. Hypotension noted by EMS and in the ED but patient responded to fluid well. He was started on Zosyn and azithromycin for suspected sepsis. He sustained acute kidney injury with creatinine 1.5. Troponin was 0.12 but later increased to 5.15. Cardiology evaluated patient and recommends cardiac cath prior to discharge. 06/14/16: Plan for CT-guided biopsy of the neck mass today, hypokalemia replaced 06/15/16: Status post CT-guided biopsy yesterday, Patient is doing well, I discussed with Dr. Reza the clinical quality assurance specialist he was requesting clearance from oncology that if he go for a heart catheter in place stand there will be an interruption of the antiplatelet otherwise he would ago with medical management , I discussed with Dr. Johns and he stated most likely they will need to stop antiplatelet for port insertion, and the patient will most likely be transferred to tertiary center, so therefore most likely medical management for now regarding that non-STEMI. Discussed with the nurse, will back off on all the fluid and start oral diet slowly Addendum: Received a call from the nurse patient is unresponsive with a low blood pressure however O2 sat preserved, I ordered stat BMP, CBC, ABG, chest x- ray, and transferred to ICU consult processing operator I called Dr. Amador and discussed with him he will be assessing the patient and assume care if needed - Syncope - Intractable headache. - Syncope was likely due to hypotension. - MR studies are negative so far including MRA neck, MRI brain. - Neurology following. - Fioricet PRN for headache. - Currently blood pressure within reasonable range. - Left submandibular mass - History of Head and neck cancer - Previous bx by ENT in the outpatient setting was non-diagnostic. - Hematology/Oncology following. CT guided bx. - NSTEMI - Afib with RVR - Hypertension - 2D echo done. LVEF preserved. - Continue Losartan 100mg Qday, Metoprolol 50mg Q8hrs, Amlodipine 5mg Qday - [id number] score 2 (age, HTN). - Heparin was discontinued due to hematuria. - Start Lipitor 40mg Qday. - Cardiac cath in near future per cardiology. - Suspected sepsis - No imaging evidence of pneumonia, Microbiology work up negative, patient is afebrile. - Lactic acid was 1.4 - observe off abx. - Acute kidney injury. Resolved. Monitor BMP Full code. SCDs for now. Due to hematuria Problem Qualifiers (1) Syncope: Qualified Code: R55 - Syncope, unspecified syncope type Saniya Fernández MD Jun 15, 2016 13:12
[2016-06-15] MEDS ORDERED: EPINEPHrine HCL (1:10,000) 1 MG/10 ML SYRINGE ONE (14:05)
[2016-06-15] MEDS ORDERED: LORazepam 2 MG/ML VIAL ONE (14:06)
[2016-06-15] MEDS ORDERED: ETOMIDATE 40 MG/20 ML VIAL ONE (14:06)
[2016-06-15] MEDS ORDERED: EPINEPHrine HCL (1:1000) 1 MG/ML VIAL ONE (14:10)
[2016-06-15] MEDS ORDERED: PROPOFOL 1000 MG/100 ML INJ 100 ML ONE (14:16)
--- NOTE | 2016-06-15 15:21 | HHI.CCPN ---
Subjective Remarks/Hospital Course DUPLICATE NOTE Objective Vital Signs Date Time Temp Pulse Resp B/P Pulse Ox O2 Delivery O2 Flow Rate FiO2 06/15/16 13:00 88 06/15/16 12:00 98.2 20 141/74 98 06/14/16 19:53 21 06/11/16 20:00 Room Air 06/11/16 18:00 2 Intake and Output 06/14/16 06/14/16 06/15/16 08:00 16:00 00:00 Intake Total 241 ml 985 ml Output Total 600 ml 1900 ml Balance -359 ml -915 ml Result Diagram: 06/14/16 0400 06/14/16 1424 Other Results Microbiology Date/Time Procedure Status Source Growth 06/12/16 16:00 Legionella Antigen - Final Complete Urine Catheterized Urine PRESUMPTIVE NEGATIVE FOR LEGIONELLA P... 06/12/16 16:00 Streptococcus pneumoniae Antigen (M - Final Complete Urine Catheterized Urine PRESUMPTIVE NEGATIVE FOR STREPTOCOCCU... 06/12/16 16:01 Influenza Types A,B Antigen (MAGED) - Final Complete Nasal Washing NEGATIVE FOR FLU A AND B ANTIGEN.... 06/13/16 21:44 Legionella Antigen - Final Complete Urine Catheterized Urine PRESUMPTIVE NEGATIVE FOR LEGIONELLA P... 06/13/16 21:44 Streptococcus pneumoniae Antigen (M - Final Complete Urine Catheterized Urine PRESUMPTIVE NEGATIVE FOR STREPTOCOCCU... Ros Amador MD Jun 15, 2016 15:21 (1) NSTEMI (non-ST elevated myocardial infarction) ICD Code: I21.4 Status: Acute (2) Syncope ICD Code: R55 Status: Acute (3) Atrial fibrillation with RVR ICD Code: I48.91 Status: Acute (4) Hypotension ICD Code: I95.9 Status: Acute (5) Elevated troponin ICD Code: R79.89 Status: Acute (6) Probable sepsis ICD Code: A41.9 Status: Acute (7) Acute kidney failure ICD Code: N17.9 Status: Acute (8) Probable pneumonia Status: Acute (9) Headache ICD Code: R51 Status: Chronic (10) Atrial fibrillation, chronic ICD Code: I48.2 Status: Chronic Problem Qualifiers (1) Syncope: Qualified Code: R55 - Syncope, unspecified syncope type (2) Hypotension: Qualified Code: I95.9 - Hypotension, unspecified hypotension type (3) Headache: Qualified Code: R51 - Chronic intractable headache, unspecified headache type Ros Amador MD Jun 15, 2016 15:21 Urine Catheterized Urine PRESUMPTIVE NEGATIVE FOR LEGIONELLA P... 06/13/16 21:44 Streptococcus pneumoniae Antigen (M - Final Complete Urine Catheterized Urine PRESUMPTIVE NEGATIVE FOR STREPTOCOCCU... Imaging Imaging studies reviewed Objective Remarks GENERAL: Awake, alert, no distress SKIN: Warm and dry. HEAD: Atraumatic. Normocephalic. EYES: Pupils equal and round. No scleral icterus. No injection or drainage. ENT/Neck: Left submandibular indurated mass, no fluctuation. Unable to determine size -margins cannot be palpated CARDIOVASCULAR: S1-S2 normal no murmurs. No murmur appreciated. RESPIRATORY: Clear to auscultation. Breath sounds equal bilaterally. GASTROINTESTINAL: Abdomen soft, non-tender, nondistended. Hepatic and splenic margins not palpable. MUSCULOSKELETAL: No clubbing. No cyanosis. No edema. NEUROLOGICAL: Awake and alert. No obvious cranial nerve deficits. Motor grossly within normal limits. Normal speech. Procedures Echo 06/12/2016 The cavity size was normal. Wall thickness was normal. Systolic function was normal. The estimated ejection fraction was in the range of 55% to 60%. Wall motion was normal; there were no regional wall motion abnormalities. A/P Problem List: (1) NSTEMI (non-ST elevated myocardial infarction) ICD Code: I21.4 Status: Acute (2) Syncope ICD Code: R55 Status: Acute (3) Atrial fibrillation with RVR ICD Code: I48.91 Status: Acute (4) Hypotension ICD Code: I95.9 Status: Acute (5) Elevated troponin ICD Code: R79.89 Status: Acute (6) Probable sepsis ICD Code: A41.9 Status: Acute (7) Acute kidney failure ICD Code: N17.9 Status: Acute (8) Probable pneumonia Status: Acute (9) Headache ICD Code: R51 Status: Chronic (10) Atrial fibrillation, chronic ICD Code: I48.2 Status: Chronic Assessment and Plan NEURO: Syncope Intractable headache -As needed Percocet for pain. -MRI MRA of the brain, essentially negative. Syncope most likely from severe hypotension -Neurology consulted RESP/ENT: Left submandibular mass Moderate interstitial infiltrates History of squamous cell carcinoma head and neck in 2013 -Nasal cannula oxygen, continue Advair Diskus -F/u influenza A and B -CT of the chest shows bilateral interstitial infiltrates predominantly upper lobes -Differential includes interstitial lung disease versus atypical pneumonia -Continue empiric Zosyn and azithromycin, f/u urine for Legionella and pneumococcal antigen CV: NSTEMI Hypotension resolved A. fib with RVR, now NSR History of chronic atrial fibrillation -Cardiology consulted, 2 D Echo pending. -Continue ASA, IV Heparin. Increase metoprolol to 50 q8 -Resume home Losartan 100 mg daily and Norvasc 5 mg daily -Received Normal saline IV fluids four liter bolus in ED, continue followed by 100 mL per hour, 2d echo, cycle troponin -May need cardiac cath GI: Nausea/vomiting-resolved -Use when necessary Zofran -Start Heart healthy diet. Protonix for GI prophylaxis : Acute kidney failure -resolved Dehydration -Monitor renal function closely. Strict intake output -Received 4 liter IV fluid bolus, continue maintenance fluid at normal saline 100 mL per hour ID: Probable sepsis Probable pneumonia versus chronic interstitial infiltrates -F/u sputum culture blood culture, check influenza, urine for Legionella and pneumococcal antigen -Received 1 dose of vancomycin continue Zosyn and azithromycin until cultures are back HEME: New left submandibular mass probable recurrence of squamous cell cancer History of squamous cell cancer of the scalp and neck in 2011 -Consulted hematology oncology for further recommendation, Dr. Tirado following -Get FNA results from Dr. Ye's office -Monitor CBC, CMP, coags. Repeat APTT ENDO: Hyperglycemia Hypokalemia -Electrolyte replacement protocol -Sliding-scale insulin if needed PROPH: -Bilateral lower extremity SCDs. IV heparin. IV Protonix LINES: -Left subclavian central line placed by Dr. Gale Level 3 Transfer to [facility] with tele. Dr. Good to assume care 06/13/16 Problem Qualifiers (1) Syncope: Qualified Code: R55 - Syncope, unspecified syncope type (2) Hypotension: Qualified Code: I95.9 - Hypotension, unspecified hypotension type (3) Headache: Qualified Code: R51 - Chronic intractable headache, unspecified headache type Ros Amador MD Jun 15, 2016 15:21
[2016-06-15] MEDS: PROPOFOL 1000 MG/100 ML INJ 100 ML IV SCH ×3 (15:24→21:06)
--- NOTE | 2016-06-15 15:35 | HHI.CCPN ---
Subjective Remarks/Hospital Course 71-year-old male with past medical history of paroxysmal atrial fibrillation, history of head and neck squamous cell cancer, new left submandibular mass FNA 10 days ago, results pending who presented to the emergency room with history of headache, syncopal episode, hypotension. Patient called EMS for severe headache and possible syncope. He denies fall and had been on couch but unable to get up. When EMS arrived it took a while for the patient open the door, he eventually crawled to the door and opened it. His blood pressure initially by EMS was less than 80. They placed 22-gauge Angiocath they started IV fluid. In the ER patient continued to be intermittently hypotensive with systolic blood pressure in 70s. Blood pressure improved with multiple fluid boluses he received 4 L of normal saline IV fluids. His heart rate was in 130s to 140s, with 20 mg of IV Cardizem push patient converted to NSR. CAT scan of his head and abdomen pelvis were essentially within normal limits. CT of the head showed right infratemporal fossa air (?this could be related to the FNA on the left neck). CAT scan of his chest showed interstitial infiltrates bilaterally, predominantly upper lobe. Dr. Gale also placed a left subclavian central line. I evaluated the patient in the ED. Patient appears with mild to moderate distress due to nausea, vomiting and anxiety. He and his noted that since last 5 days he had not been having adequate po mouth intake due to loss of appetite. He does think that he lost consciousness. I have ordered MRI and MRA of the brain and neck. Patient will be empirically covered for sepsis with Zosyn and azithromycin given pulmonary infiltrates. His lab works shows a creatinine of 1.5. His troponin was 0.12. His aPTT came back at 121 which I have repeated. Hematology consult had been requested and also will request records from Dr. Ye's office. His troponin is mildly elevated, could be demand ischemia, but will rule out NSTEMI SUBJECTIVE 06/12: Troponin increased to 5.15. patient is on IV Heparin, ASA, metoprolol and cardiology consult/Echo pending. Cr improved from 1.5 ot 0.9. UO 1.4 L in 24 hours. Hypotension resolved, in act hypertensive now. Will resume his Losartan and Norvasc CCM RECONSULT NOTE 06/15/16: Apparently, plan was for medical management of acute [place] due to coexisting recurrent self neck cancer and probable requirement for chemotherapy and surgery (With PCI technician terminal and repeater antiplatelet will be needed) Patient developed acute change in mental status and blood pressure dropped to systolic of 50s. A Halicat was called and patient was moved to ICU. I immediately evaluated the patient. He transiently became unresponsive after 1 L fluid bolus, but blood pressure dropped to systolic of 40s again and patient became unconscious. Levophed was started without immediate response so 0.5 mg of epinephrine IV push was given with improvement in blood pressure. Patient remained unresponsive. He was intubated for airway protection. Stat cardiac enzymes, EKG, chest x-ray ordered. Stat echo and EEG ordered. All further work up is pending at this time. Discuss with Dr. Reza, if cleared by oncology he is willing to take patient for cardiac catheterization. Status post CT- guided biopsy 06/14/16 Objective Vital Signs Date Time Temp Pulse Resp B/P Pulse Ox O2 Delivery O2 Flow Rate FiO2 06/15/16 13:00 88 06/15/16 12:00 98.2 20 141/74 98 06/14/16 19:53 21 06/11/16 20:00 Room Air 06/11/16 18:00 2 Intake and Output 06/14/16 06/14/16 06/15/16 08:00 16:00 00:00 Intake Total 241 ml 985 ml Output Total 600 ml 1900 ml Balance -359 ml -915 ml Result Diagram: 06/14/16 0400 06/14/16 1424 Other Results Microbiology Date/Time Procedure Status Source Growth 06/12/16 16:00 Legionella Antigen - Final Complete Urine Catheterized Urine PRESUMPTIVE NEGATIVE FOR LEGIONELLA P... 06/12/16 16:00 Streptococcus pneumoniae Antigen (M - Final Complete Urine Catheterized Urine PRESUMPTIVE NEGATIVE FOR STREPTOCOCCU... 06/12/16 16:01 Influenza Types A,B Antigen (MAGED) - Final Complete Nasal Washing NEGATIVE FOR FLU A AND B ANTIGEN.... 06/13/16 21:44 Legionella Antigen - Final Complete Urine Catheterized Urine PRESUMPTIVE NEGATIVE FOR LEGIONELLA P... 06/13/16 21:44 Streptococcus pneumoniae Antigen (M - Final Complete Urine Catheterized Urine PRESUMPTIVE NEGATIVE FOR STREPTOCOCCU... Imaging Imaging studies reviewed Objective Remarks GENERAL: Patient is diaphoretic, retching, then became unresponsive. No response to sternal rub. SKIN: Warm and dry. HEAD: Atraumatic. Normocephalic. EYES: Pupils equal and round. No scleral icterus. ENT/Neck: Left submandibular indurated mass, no fluctuation. CARDIOVASCULAR: S1-S2 normal no murmurs. No murmur appreciated. Profoundly hypotensive on Levophed RESPIRATORY: Clear to auscultation. Breath sounds equal bilaterally. Hypopneic GASTROINTESTINAL: Abdomen soft, non-tender, nondistended. Hepatic and splenic margins not palpable. MUSCULOSKELETAL: No clubbing. No cyanosis. NEUROLOGICAL: Unresponsive. No withdrawal to pain (Very briefly when responsive moved extremities) Procedures Echo 06/12/2016 The cavity size was normal. Wall thickness was normal. Systolic function was normal. The estimated ejection fraction was in the range of 55% to 60%. Wall motion was normal; there were no regional wall motion abnormalities. Urinary Catheter: Yes Assessment to: Continue Vascular Central Line Catheter: Yes Assessment to: Continue A/P Problem List: (1) NSTEMI (non-ST elevated myocardial infarction) ICD Code: I21.4 Status: Acute (2) Syncope ICD Code: R55 Status: Acute (3) Atrial fibrillation with RVR ICD Code: I48.91 Status: Acute (4) Hypotension ICD Code: I95.9 Status: Acute (5) Elevated troponin ICD Code: R79.89 Status: Acute (6) Probable sepsis ICD Code: A41.9 Status: Acute (7) Acute kidney failure ICD Code: N17.9 Status: Acute (8) Probable pneumonia Status: Acute (9) Headache ICD Code: R51 Status: Chronic (10) Atrial fibrillation, chronic ICD Code: I48.2 Status: Chronic Assessment and Plan NEURO: Altered mentation/acute encephalopathy secondary to profound hypotension Cardiac Syncope Intractable headache -Discontinue all sedating medications -CT of the head stat -MRI MRA of the brain, essentially negative. Syncope most likely from severe hypotension RESP/ENT: Acute respiratory failure-intubated 06/15/16 Left submandibular mass Moderate interstitial infiltrates History of squamous cell carcinoma head and neck in 2012 -Emergently intubated for airway protection. Continue assist control mechanical ventilation -CT of the chest shows bilateral interstitial infiltrates predominantly upper lobes -Differential includes interstitial lung disease versus atypical pneumonia -Previously treated with broad-spectrum antibiotics CV: Shock, most likely cardiogenic NSTEMI A. fib with RVR, now NSR History of chronic atrial fibrillation -Levophed to keep map above 65. Epinephrine 0.5 mg 1. Given -Cardiology Dr. Reza, 2 D Echo STAT pending. Previous EF 55%, No WMA -Currency on ASA and Plavix. Hold metoprolol to 50 q8. Hold Norvasc and losartan -Received Normal saline IV fluids 1L bolus. -Check stat cardiac enzymes, Dr. Reza may take for cardiac catheterization today 06/15/16 GI: Nausea/vomiting -Use when necessary Zofran. Most likely secondary to acute PR -Protonix for GI prophylaxis : Acute kidney failure -resolved Dehydration -Monitor renal function closely. Strict intake output ID: -All cultures negative. Monitor closely for infection HEME: New left submandibular mass probable recurrence of squamous cell cancer History of squamous cell cancer of the scalp and neck in 2011 -Hematology oncology Dr. Ojeda following -s/p Biopsy 06/14/16. follow up on resultx -Monitor CBC, CMP, coags. Repeat APTT ENDO: Hyperglycemia Hypokalemia -Electrolyte replacement protocol -Sliding-scale insulin if needed PROPH: -Bilateral lower extremity SCDs. Lovenox. IV Protonix LINES: -Left subclavian central line placed by Dr. Gale CCT 78 MIN excluding procedures Problem Qualifiers (1) Syncope: Qualified Code: R55 - Syncope, unspecified syncope type (2) Hypotension: Qualified Code: I95.9 - Hypotension, unspecified hypotension type (3) Headache: Qualified Code: R51 - Chronic intractable headache, unspecified headache type Ros Amador MD Jun 15, 2016 15:35 Ros Amador MD Jun 15, 2016 15:35
[2016-06-15 15:38] LABS: BLOOD GAS BASE EXCESS -2.8 mmol/L (-2-2); BLOOD GAS CARBOXYHEMOGLOBIN 1.2 % (0-4); BLOOD GAS HCO3 20 mmol/L (22-26); BLOOD GAS METHEMOGLOBIN 0.9 % (0-2); BLOOD GAS O2 HGB SATURATION 98 % (90-100); BLOOD GAS OXYGEN CONTENT 19.6 Vol % (12.0-20.0); BLOOD GAS PCO2 29 mmHg (38-42); BLOOD GAS PO2 426 mmHg (61-120); BLOOD GAS TOTAL HGB 13.5 G/DL (12.0-16.0); CRITICAL VALUE NO; OXYGEN DEVICE VENT; TEMP CORR TO 98.6
[2016-06-15 15:39] LABS: DRAW SITE RT RADIAL; FIO2 100 %; NUMBER OF ARTERIAL PUNCTURES 1; STAT NO; ULNAR PULSE PRESENT
[2016-06-15 15:44] LABS: HEMATOCRIT 36.5 % (39.0-51.0); MEAN CELL VOLUME 88.4 FL (80.0-100.0); MEAN CORPUSCULAR HEMOGLOBIN 31.3 PG (27.0-34.0); MEAN CORPUSCULAR HGB CONC 35.4 % (32.0-36.0); PLATELET COUNT 282 TH/MM3 (150-450); RED BLOOD COUNT 4.13 MIL/MM3 (4.50-5.90); RED CELL DISTRIBUTION WIDTH 13.1 % (11.6-17.2); REVIEW FLAG FINAL; WHITE BLOOD COUNT 8.7 TH/MM3 (4.0-11.0)
[2016-06-15 15:51] LABS: ALKALINE PHOSPHATASE 53 U/L (45-117); ALT (GPT) 20 U/L (12-78); ANION GAP 11 MEQ/L (5-15); AST (GOT) 24 U/L (15-37); BLOOD UREA NITROGEN 12 MG/DL (7-18); CHLORIDE 100 MEQ/L (98-107); GLOMERULAR FILTRATION RATE 85 ML/MIN (>89); MAGNESIUM 1.8 MG/DL (1.5-2.5); POTASSIUM 3.1 MEQ/L (3.5-5.1); SODIUM (NA) 136 MEQ/L (136-145); TOTAL BILIRUBIN ADULT 0.7 MG/DL (0.2-1.0)
--- NOTE | 2016-06-15 15:53 | PD.PROCEDR ---
Procedure Note Procedure After the risks and benefits were discussed the following procedure was performed: INTUBATION: The patient was put in optimal position for the procedure. Rapid sequence intubation was initiated by me using 20 milligrams of etomidate IV, 2 mg of Ativan IV and 50 milligrams of Rocuronium IV. DL with Grade 2 view, single attempt. Vocal. Larynx appeared swollen edematous. The patient was intubated with a 8.0 cuffed endotracheal tube. Tube placement was confirmed by visualization of the tube and balloon passing through the cords, capnometry and subsequent chest x-ray. Breath sounds were equal and well aerated bilaterally postintubation. No breath sounds over stomach. Patient tolerated procedure well. Ros Amador MD Jun 15, 2016 15:53
--- NOTE | 2016-06-15 15:58 | ECHLIM ---
Study Study Date:06/15/2016 STUDY CONCLUSIONS SUMMARY - Study data: Limited 2D echo of the left ventricle for assessment of ejection fraction. - Left ventricle: The cavity size was normal. Systolic function was normal. The estimated ejection fraction was in the range of 55% to 60%. Although no diagnostic regional wall motion abnormality was identified, this possibility cannot be completely excluded on the basis of this study. If LV function is below 40, please consider prescribing an ACEI or ARB or document rationale for non-use. PROCEDURE DATA Procedure: Transthoracic echocardiography. Image quality was good. Scanning was performed from the parasternal, apical, and subcostal acoustic windows. Study completion: The patient tolerated the procedure well. Transthoracic echocardiography. Limited 2D echo of the left ventricle for assessment of ejection fraction. CARDIAC ANATOMY LEFT VENTRICLE: The cavity size was normal. There was no hypertrophy. Systolic function was normal. The estimated ejection fraction was in the range of 55% to 60%. Although no diagnostic regional wall motion abnormality was identified, this possibility cannot be completely excluded on the basis of this study. BASIC MEASUREMENTS ADULT NORMAL Left ventricle LV internal dimension, ED, chordal level, 45.8 mm 43-52 PLAX LV internal dimension, ES, chordal level, 35 mm 23-38 PLAX Fractional shortening, chordal level, PLAX *24 % >29 LV posterior wall thickness, ED 10.3 mm IVS/LVPW ratio, ED *1.54 <1.3 Ventricular septum Septal thickness, ED 15.9 mm LEGEND: Mean values are shown as u=mean value. Asterisk (*) miller values outside specified normal range. Prepared and signed by Raúl Montemayor [id number]
--- NOTE | 2016-06-15 16:57 | RADRPT ---
EXAM DATE/TIME: 06/15/2016 13:50 [facility] COMPARISON: CHEST SINGLE AP, June 12, 2016, 3:33. INDICATIONS : Evaluate ET tube placement. MEDICAL HISTORY : Cardiovascular disease. Hypertension SURGICAL HISTORY : None. ENCOUNTER: Subsequent ACUITY: 4 - 6 days PAIN SCORE: 0/10 LOCATION: Bilateral chest FINDINGS: 2 AP portable views of the chest were obtained and demonstrate interval intubation with placement end otracheal tube tip located approximately 2 cm above the level of the graciela. The left subclavian cent ral venous line remains in place. The study is more Midinspiratory with chronic lung vasculature. The re is patchy opacity at the left lung base. Right lung is clear. The heart size is at the upper limit s of normal. CONCLUSION: 1. Interval intubation with the endotracheal tube tip approximately 2 cm above the graciela. 2. As the true exam the patchy opacity at the left lung base. Raul Reyes MD on June 15, 2016 at 16:53 Board Certified Radiologist. This report was verified electronically.
[2016-06-15] MEDS: DEXAMETHASONE SOD PHOS 4 MG/ML VIAL IV PUSH SCH ×2 (17:41→21:00)
--- NOTE | 2016-06-15 18:18 | RADRPT ---
EXAM DATE/TIME: 06/15/2016 18:03 [facility] COMPARISON: CT BRAIN W/O CONTRAST, June 11, 2016, 15:09. INDICATIONS : Altered mental status; change in mentation. RADIATION DOSE: 56.35 CTDIvol (mGy) MEDICAL HISTORY : Hypertension. SURGICAL HISTORY : None. ENCOUNTER: Initial ACUITY: 1 day PAIN SCALE: Non-responsive LOCATION: cranial TECHNIQUE: Multiple contiguous axial images were obtained of the head. Using automated exposure control and adj ustment of the mA and/or kV according to patient size, radiation dose was kept as low as reasonably a chievable to obtain optimal diagnostic quality images. FINDINGS: CEREBRUM: Slight asymmetry of the ventricles with the left slightly larger than the right. This is stable, valadez messi. No evidence of midline shift, mass lesion, hemorrhage or acute infarction. No extra-axial flui d collections are seen. POSTERIOR FOSSA: The cerebellum and brainstem are intact. The 4th ventricle is midline. The cerebellopontine angle i s unremarkable. EXTRACRANIAL: The visualized portion of the orbits is intact. Mild mucoperiosteal thickening in the ethmoid air nemo ls, right greater than left. This may be related to the nasogastric tube in the right nares SKULL: The calvaria is intact. No evidence of skull fracture. CONCLUSION: Stable appearance of the brain with no acute intracranial process to explain current clinical sy mptoms. Jamal Kerr MD on June 15, 2016 at 18:15 Board Certified Radiologist. This report was verified electronically.
[2016-06-15] MEDS: POTASSIUM CHLOR 40 MEQ PREMIX 100 ML IV PRN (18:47)
--- NOTE | 2016-06-15 19:52 | MG ---
cc: JACINTO GUTIERREZ MD Lab No:[id number] Date: 06/15/2016 Age: Sex: M Race: DATE OF : 1945. HISTORY: 71-year-old intubated. DESCRIPTION OF RECORD: Stage II appearance, generalized 1 to 3 delta activity with spindle activity, 10 to 30 microvolts occurring in a generalized fashion. Minimal EEG variability reactivity. No electrographic seizures. Single-lead EKG showing some premature contractions. Chewing artifact. No driving with photic stimulation. INTERPRETATION: Mild to moderate encephalopathy with appearance of stage II/III sleep EEG. Clinical correlation. Jacinto Gutierrez MD /VLADIMIR /7:30 PM /7:47 PM
[2016-06-15] MEDS: BUDESONIDE-FORMOTEROL 80/4.5 MCG INHALER INH SCH (21:00)
[2016-06-15] MEDS: SODIUM CHLORIDE 0.9% FLUSH 5 ML FLUSH IV FLUSH SCH (21:00)
[2016-06-15] MEDS: CHLORHEXIDINE 0.12% (ORAL KIT) 15 ML CUP MT SCH (21:00)
[2016-06-16] VITALS (18 sets, daily range): BP systolic 126–146; BP diastolic 64–99; PULSE 69–99; RESP 12–18; TEMP 97.9–99.8; O2SAT 91–100
[2016-06-16] MEDS: PROPOFOL 1000 MG/100 ML INJ 100 ML IV SCH ×2 (00:14→08:24)
[2016-06-16] MEDS: NS + KCL 20 MEQ INJ 1,000 ML IV SCH (03:51)
[2016-06-16 04:43] LABS: AUTOMATED NEUTROPHIL # 4.9 TH/MM3 (1.8-7.7); BASOPHIL % 0.1 % (0.0-2.0); EOSINOPHIL % 0.1 % (0.0-4.0); HEMATOCRIT 35.8 % (39.0-51.0); HEMO FLAGS DIFF FINAL; LYMPH % 6.2 % (9.0-44.0); LYMPHOCYTE # 0.3 TH/MM3 (1.0-4.8); MEAN CELL VOLUME 87.2 FL (80.0-100.0); MEAN CORPUSCULAR HGB CONC 35.6 % (32.0-36.0); MONO % 5.4 % (0.0-8.0); NEUT % 88.2 % (16.0-70.0); PLATELET COUNT 278 TH/MM3 (150-450); RED BLOOD COUNT 4.11 MIL/MM3 (4.50-5.90); RED CELL DISTRIBUTION WIDTH 12.9 % (11.6-17.2); WHITE BLOOD COUNT 5.5 TH/MM3 (4.0-11.0)
[2016-06-16] MEDS: DEXAMETHASONE SOD PHOS 4 MG/ML VIAL IV PUSH SCH (05:07)
[2016-06-16 05:09] LABS: ALKALINE PHOSPHATASE 58 U/L (45-117); ALT (GPT) 19 U/L (12-78); ANION GAP 8 MEQ/L (5-15); AST (GOT) 19 U/L (15-37); BICARBONATE 24.7 MEQ/L (21.0-32.0); BLOOD UREA NITROGEN 14 MG/DL (7-18); CHLORIDE 102 MEQ/L (98-107); GLOMERULAR FILTRATION RATE 91 ML/MIN (>89); SODIUM (NA) 135 MEQ/L (136-145); TOTAL BILIRUBIN ADULT 0.4 MG/DL (0.2-1.0)
[2016-06-16] MEDS: CHLORHEXIDINE GLUCONATE 2 % 1 PACK (2 CLOTHS) TOP SCH ×2 (05:11→21:44)
--- NOTE | 2016-06-16 06:57 | RADRPT ---
EXAM DATE/TIME: 06/16/2016 05:58 [facility] COMPARISON: CHEST SINGLE AP, June 15, 2016, 13:50. INDICATIONS : Evaluate for respiratory disease. MEDICAL HISTORY : Cardiovascular disease. Hypertension. SURGICAL HISTORY : None. ENCOUNTER: Subsequent ACUITY: 1 week PAIN SCORE: Non-responsive. LOCATION: chest FINDINGS: NG tube is present with tip in the stomach. ET tube and left subclavian line have not changed. There is mild haziness to the left mid and lower lung field possibly technical, however slight left lung ba se consolidation may be present. CONCLUSION: Possible left lung base consolidation. Katlyn Owens MD on June 16, 2016 at 6:55 Board Certified Radiologist. This report was verified electronically.
[2016-06-16] MEDS: hydrALAZINE HCL 20 MG/ML VIAL IV PUSH PRN (08:24)
[2016-06-16] MEDS: ASPIRIN EC 81 MG TABEC PO SCH (08:25)
[2016-06-16] MEDS: BUDESONIDE-FORMOTEROL 80/4.5 MCG INHALER INH SCH ×2 (08:25→21:00)
[2016-06-16] MEDS: SODIUM CHLORIDE 0.9% FLUSH 5 ML FLUSH IV FLUSH SCH (08:25)
[2016-06-16] MEDS: CHLORHEXIDINE 0.12% (ORAL KIT) 15 ML CUP MT SCH ×2 (08:26→19:54)
[2016-06-16] MEDS ORDERED: CLOPIDOGREL 75 MG TAB PO SCH (09:00)
[2016-06-16] MEDS ORDERED: ATORVASTATIN 20 MG TAB PO SCH (09:00)
[2016-06-16] MEDS ORDERED: METOPROLOL TARTRATE 5 MG/5 ML VIAL ONE ×2 (09:30→10:10)
--- NOTE | 2016-06-16 09:36 | HHI.CCPN ---
Subjective Remarks/Hospital Course 71-year-old male with past medical history of paroxysmal atrial fibrillation, history of head and neck squamous cell cancer, new left submandibular mass FNA 10 days ago, results pending who presented to the emergency room with history of headache, syncopal episode, hypotension. Patient called EMS for severe headache and possible syncope. He denies fall and had been on couch but unable to get up. When EMS arrived it took a while for the patient open the door, he eventually crawled to the door and opened it. His blood pressure initially by EMS was less than 80. They placed 22-gauge Angiocath they started IV fluid. In the ER patient continued to be intermittently hypotensive with systolic blood pressure in 70s. Blood pressure improved with multiple fluid boluses he received 4 L of normal saline IV fluids. His heart rate was in 130s to 140s, with 20 mg of IV Cardizem push patient converted to NSR. CAT scan of his head and abdomen pelvis were essentially within normal limits. CT of the head showed right infratemporal fossa air (?this could be related to the FNA on the left neck). CAT scan of his chest showed interstitial infiltrates bilaterally, predominantly upper lobe. Dr. Gale also placed a left subclavian central line. I evaluated the patient in the ED. Patient appears with mild to moderate distress due to nausea, vomiting and anxiety. He and his noted that since last 5 days he had not been having adequate po mouth intake due to loss of appetite. He does think that he lost consciousness. I have ordered MRI and MRA of the brain and neck. Patient will be empirically covered for sepsis with Zosyn and azithromycin given pulmonary infiltrates. His lab works shows a creatinine of 1.5. His troponin was 0.12. His aPTT came back at 121 which I have repeated. Hematology consult had been requested and also will request records from Dr. Ye's office. His troponin is mildly elevated, could be demand ischemia, but will rule out NSTEMI SUBJECTIVE 06/12: Troponin increased to 5.15. patient is on IV Heparin, ASA, metoprolol and cardiology consult/Echo pending. Cr improved from 1.5 ot 0.9. UO 1.4 L in 24 hours. Hypotension resolved, in act hypertensive now. Will resume his Losartan and Norvasc CCM RECONSULT NOTE 06/15/16: Apparently, plan was for medical management of acute [place] due to coexisting recurrent self neck cancer and probable requirement for chemotherapy and surgery (With PCI rn long term care antiplatelet will be needed) Patient developed acute change in mental status and blood pressure dropped to systolic of 50s. A Halicat was called and patient was moved to ICU. I immediately evaluated the patient. He transiently became unresponsive after 1 L fluid bolus, but blood pressure dropped to systolic of 40s again and patient became unconscious. Levophed was started without immediate response so 0.5 mg of epinephrine IV push was given with improvement in blood pressure. Patient remained unresponsive. He was intubated for airway protection. Stat cardiac enzymes, EKG, chest x-ray ordered. Stat echo and EEG ordered. All further work up is pending at this time. Discuss with Dr. Reza, if cleared by oncology he is willing to take patient for cardiac catheterization. Status post CT- guided biopsy 06/14/16 06/16/16: Serial troponins trending down. Hypotension seems to have resolved. On the vent opens eyes follows commands. CT of the head yesterday had been negative. I will discuss with Dr. Reza again regarding cardiac catheterization Objective Vital Signs Date Time Temp Pulse Resp B/P Pulse Ox O2 Delivery O2 Flow Rate FiO2 06/16/16 09:22 91 Nasal Cannula 4.00 06/16/16 08:45 35 06/16/16 06:00 96 06/16/16 04:00 97.9 16 142/82 Intake and Output 06/15/16 06/15/16 06/16/16 08:00 16:00 00:00 Intake Total 240 ml 2021 ml Output Total 800 ml 1900 ml Balance -560 ml 121 ml Result Diagram: 06/16/16 0420 06/16/16 0420 Other Results Microbiology Date/Time Procedure Status Source Growth 06/13/16 21:44 Legionella Antigen - Final Complete Urine Catheterized Urine PRESUMPTIVE NEGATIVE FOR LEGIONELLA P... 06/13/16 21:44 Streptococcus pneumoniae Antigen (M - Final Complete Urine Catheterized Urine PRESUMPTIVE NEGATIVE FOR STREPTOCOCCU... Laboratory Tests Test 06/15/16 15:25 Blood Gas Puncture Site RT RADIAL Blood Gas Patient Temperature 98.6 Blood Gas HCO3 20 mmol/L (22-26) Blood Gas Base Excess -2.8 mmol/L (-2-2) Blood Gas Oxygen Saturation 98 % (90-100) Arterial Blood pH 7.46 (7.380-7.420) Arterial Blood Partial 29 mmHg (38-42) Pressure CO2 Arterial Blood Partial 426 mmHg Pressure O2 (61-120) Arterial Blood Oxygen Content 19.6 Vol % (12.0-20.0) Arterial Blood 1.2 % (0-4) Carboxyhemoglobin Arterial Blood Methemoglobin 0.9 % (0-2) Blood Gas Hemoglobin 13.5 G/DL (12.0-16.0) Oxygen Delivery Device VENT Blood Gas Ventilator Setting AC/16/550/5/100 Blood Gas Inspired Oxygen 100 % Objective Remarks GENERAL: Patient is intubated slightly sedated with propofol. SKIN: Warm and dry. HEAD: Atraumatic. Normocephalic. EYES: Pupils equal and round. No scleral icterus. ENT/Neck: Left submandibular indurated mass, no fluctuation. CARDIOVASCULAR: S1-S2 normal no murmurs. No murmur appreciated. Had been weaned off Levophed RESPIRATORY: Clear to auscultation. Breath sounds equal bilaterally. on ACV GASTROINTESTINAL: Abdomen soft, non-tender, nondistended. Hepatic and splenic margins not palpable. MUSCULOSKELETAL: No clubbing. No cyanosis. NEUROLOGICAL: Intubated sedated. Wakes up to verbal stimuli. Follows commands but lethargic A/P Problem List: (1) NSTEMI (non-ST elevated myocardial infarction) ICD Code: I21.4 Status: Acute (2) Syncope ICD Code: R55 Status: Acute (3) Atrial fibrillation with RVR ICD Code: I48.91 Status: Acute (4) Hypotension ICD Code: I95.9 Status: Acute (5) Elevated troponin ICD Code: R79.89 Status: Acute (6) Probable sepsis ICD Code: A41.9 Status: Acute (7) Acute kidney failure ICD Code: N17.9 Status: Acute (8) Probable pneumonia Status: Acute (9) Headache ICD Code: R51 Status: Chronic (10) Atrial fibrillation, chronic ICD Code: I48.2 Status: Chronic Assessment and Plan NEURO: Altered mentation/acute encephalopathy secondary to profound hypotension Cardiac Syncope Intractable headache -CT of the head done 06/15/69 negative for acute findings. Stop all sedation, start weaning trials -MRI MRA of the brain, essentially negative. Syncope most likely from severe hypotension RESP/ENT: Acute respiratory failure-intubated 06/15/16 Left submandibular mass Moderate interstitial infiltrates History of squamous cell carcinoma head and neck in 2013 -Emergently intubated for airway protection 06/15/16. Start weaning trials today for possible extubation -CT of the chest on admission shows bilateral interstitial infiltrates predominantly upper lobes. Differential includes interstitial lung disease versus atypical pneumonia -Previously treated with broad-spectrum antibiotics CV: Shock, most likely cardiogenic -resolved NSTEMI A. fib with RVR History of chronic atrial fibrillation -Levophed to keep map above 65, now weaned off. Hypertensive -Cardiology Dr. Reza, 2 D Echo STAT 06/15. EF 60% cannot rule out wall motion abnormality -Currently on ASA and Plavix. -Resume metoprolol to 50 q8. Hold Norvasc and losartan -Serial cardiac enzymes shows downtrending troponins, Dr. Reza may take for cardiac catheterization\ -Cardizem as needed for atrial fibrillation rate control GI: Nausea/vomiting -Use when necessary Zofran. -Protonix for GI prophylaxis -Keep nothing by mouth : Acute kidney failure -resolved Dehydration -Monitor renal function closely. Strict intake output ID: -All cultures negative. Monitor closely for infection HEME: New left submandibular mass probable recurrence of squamous cell cancer History of squamous cell cancer of the scalp and neck in 2012 -Hematology oncology Dr. Ojeda following -s/p Biopsy 06/14/16. follow up on resultx -Monitor CBC, CMP, coags. Repeat APTT ENDO: Hyperglycemia Hypokalemia -Electrolyte replacement protocol -Sliding-scale insulin if needed PROPH: -Bilateral lower extremity SCDs. Lovenox. IV Protonix LINES: -Left subclavian central line placed by Dr. aGle CCT 35 MIN excluding procedures Patient extubated after successful weaning trial. Developed atrial fibrillation with heart rate 200s. Stat EKG confirmed A. fib with RVR. IV metoprolol 2.5 mg 1. If not rate controlled will give Cardizem 10 mg IV 1 and start infusion Problem Qualifiers (1) Syncope: Qualified Code: R55 - Syncope, unspecified syncope type (2) Hypotension: Qualified Code: I95.9 - Hypotension, unspecified hypotension type (3) Headache: Qualified Code: R51 - Chronic intractable headache, unspecified headache type Ros Amador MD Jun 16, 2016 09:36
[2016-06-16] MEDS ORDERED: DILTIAZEM HCL 25 MG/5 ML VIAL IVP ONE (09:45)
[2016-06-16] MEDS: DILTIAZEM INJ 125 MG in SODIUM CHLORIDE 0.9% INJ 100 ML IV SCH (09:59)
[2016-06-16] MEDS: MAGNESIUM SULFATE 1 GM PREMIX 100 ML IV SCH ×2 (10:00→12:11)
[2016-06-16] MEDS ORDERED: HEPARIN-NS/PF INJ 500 ML ONE (10:46)
[2016-06-16] MEDS ORDERED: MIDAZOLAM HCL 2 MG/2 ML VIAL ONE (10:51)
[2016-06-16] MEDS ORDERED: HEPARIN SODIUM - IV 10,000 UNITS/10 ML VIAL ONE (11:01)
[2016-06-16] MEDS ORDERED: CLOPIDOGREL 300 MG TAB ONE (11:24)
[2016-06-16] MEDS ORDERED: CLOPIDOGREL 300 MG TAB PO ONE (11:45)
[2016-06-16] MEDS ORDERED: MISC INFORMATION XX ONE (11:45)
[2016-06-16] MEDS ORDERED: SODIUM CHLORIDE 0.9% FLUSH 5 ML FLUSH IVF PRN (11:45)
--- NOTE | 2016-06-16 12:16 | MA ---
cc: PHYLLISKALEE DATE: 06/16/2016 DATE OF : 1945 PROCEDURE PERFORMED 1. Left heart catheterization. 2. Selective right and left coronary angiography. 3. Successful PCI to ostial RCA. INDICATION [id number] NM. PROCEDURE DESCRIPTION Consent signed. The patient was brought into the cardiac dental laboratory assistant in a fasting state. The right groin was prepped and draped in sterile fashion. Using 1% lidocaine for local anesthesia and a micropuncture kit a 6-[place] sheath was inserted into the right common femoral artery. Right common femoral artery angiography was performed to confirm position of the sheath. Selective right and left coronary angiography was performed with a JR4 and JL4 diagnostic catheter respectively. Angiography was taken in multiple views. There was a significant 99% ostial lesion in the right coronary artery with associated damping. Stenosis was not resolved after intra coronary nitroglycerin thus we decided to intervene to this vessel. Heparin IV was given for anticoagulation. The right coronary artery was engaged with a JR4 guide and the vessel was wired with a Runthrough wire. The lesion was predilated with a 3.0 x 12 balloon and then 3.0 x 15 sculpting balloon. It was elevated to high atmospheres with adequate expansion followed by insertion and deployment of a 3.5 x 15 bare metal stent which was post dilated with a 3.5 x 8 noncompliant balloon. Final angiographic views revealed good stent expansion and apposition with NILSON-III flow. The patient tolerated the procedure well without complications. Estimated blood loss was less than 30 cc. The right groin access site was closed with a Perclose device. LEFT VENTRICLE The patient had a recent 2-3 echo done in this admission which shows preserved LV systolic function, thus a left ventriculogram was not done. The aortic pressure was 118/58 with a mean of 80. ANGIOGRAPHIC RESULTS 1. The left main is patent with nonobstructive CAD. 2. The LAD is transapical and has minimal luminal irregularities throughout. It is a wraparound vessel that wraps around the apex. D1 and D2 are prominent vessels and both have side branches with minimal luminal irregularities. 3. The left circumflex artery has minimal luminal irregularities and NILSON-III flow. OM1, OM2, OM3 and OM4 are all patent with NILSON-III flow. 4. The right coronary artery is a dominant vessel giving off a PDA which has a significant 99% ostial lesion that damps with engagement of the diagnostic catheter. The rest of the vessel has minimal irregularities with nonobstructive coronary artery disease. CONCLUSIONS 1. Successful PCI with bare metal stent of the ostial right coronary artery. RECOMMENDATIONS 1. Dual-antiplatelet agent with aspirin and Plavix, 2. Aggressive medical management for coronary artery disease with Beta Blockers , ACEi, and statins 3. Post cath care. MD OCTAVIA Guzman/BT /11:36 AM /11:48 AM [email or web address]
[2016-06-16] MEDS ORDERED: IOHEXOL 350 MG/ML 100 ML BTL (for Cath Lab) OTHER ONE (12:19)
--- NOTE | 2016-06-16 14:46 | PD.ONC.PN ---
Subjective Subjective Remarks Afebrile overnight. Patient seen in C with ex- and two daughters at bedside. He is weak but awake and alert s/p PCI with stent of right coronary artery. Objective Data Date Time Temp Pulse Resp B/P Pulse Ox O2 Delivery O2 Flow Rate FiO2 06/16/16 14:00 87 06/16/16 13:10 99 Nasal Cannula 4.00 06/16/16 13:00 98.4 82 18 134/64 98 06/16/16 13:00 82 06/16/16 10:00 93 06/16/16 09:22 91 Nasal Cannula 4.00 06/16/16 09:20 99 Non-Rebreather 06/16/16 09:15 96 Nasal Cannula 2.00 06/16/16 08:45 35 06/16/16 08:41 96 35 06/16/16 08:30 35 06/16/16 08:00 70 06/16/16 08:00 35 06/16/16 08:00 98.3 70 16 136/99 99 06/16/16 07:54 100 35 06/16/16 06:00 96 06/16/16 04:00 99 06/16/16 04:00 97.9 99 16 142/82 100 06/16/16 04:00 35 06/16/16 03:22 100 35 06/16/16 02:00 69 06/16/16 00:02 100 35 06/16/16 00:00 99.6 83 16 146/70 100 06/16/16 00:00 83 06/16/16 00:00 35 06/15/16 22:00 91 06/15/16 20:19 100 40 06/15/16 20:00 99.8 76 16 153/78 100 06/15/16 20:00 50 06/15/16 20:00 76 06/15/16 18:00 50 06/15/16 16:45 100 50 06/15/16 16:00 78 06/15/16 16:00 97.9 78 8 100/52 99 Result Diagram: 06/16/16 0420 06/16/16 0420 Laboratory Results Laboratory Tests Test 06/15/16 06/15/16 06/16/16 06/16/16 14:55 15:25 00:50 04:20 White Blood Count 8.7 TH/MM3 5.5 TH/MM3 Red Blood Count 4.13 MIL/MM3 4.11 MIL/MM3 Hemoglobin 12.9 GM/DL 12.7 GM/DL Hematocrit 36.5 % 35.8 % Mean Corpuscular Volume 88.4 FL 87.2 FL Mean Corpuscular Hemoglobin 31.3 PG 31.0 PG Mean Corpuscular Hemoglobin 35.4 % 35.6 % Concent Red Cell Distribution Width 13.1 % 12.9 % Platelet Count 282 TH/MM3 278 TH/MM3 Mean Platelet Volume 8.4 FL 7.7 FL Nasal Screen MRSA (PCR) NEGATIVE Sodium Level 136 MEQ/L 135 MEQ/L Potassium Level 3.1 MEQ/L 4.0 MEQ/L Chloride Level 100 MEQ/L 102 MEQ/L Carbon Dioxide Level 25.0 MEQ/L 24.7 MEQ/L Anion Gap 11 MEQ/L 8 MEQ/L Blood Urea Nitrogen 12 MG/DL 14 MG/DL Creatinine 0.89 MG/DL 0.84 MG/DL Estimat Glomerular Filtration 85 ML/MIN 91 ML/MIN Rate Random Glucose 132 MG/DL 141 MG/DL Lactic Acid Level 1.7 mmol/L Calcium Level 7.9 MG/DL 8.0 MG/DL Magnesium Level 1.8 MG/DL Total Bilirubin 0.7 MG/DL 0.4 MG/DL Aspartate Amino Transf 24 U/L 19 U/L (AST/SGOT) Alanine Aminotransferase 20 U/L 19 U/L (ALT/SGPT) Alkaline Phosphatase 53 U/L 58 U/L Total Creatine Kinase 96 U/L 69 U/L 66 U/L Troponin I 0.92 NG/ML 0.56 NG/ML 0.50 NG/ML Total Protein 6.4 GM/DL 6.3 GM/DL Albumin 2.5 GM/DL 2.4 GM/DL Blood Gas Puncture Site RT RADIAL Blood Gas Patient Temperature 98.6 Blood Gas HCO3 20 mmol/L Blood Gas Base Excess -2.8 mmol/L Blood Gas Oxygen Saturation 98 % Arterial Blood pH 7.46 Arterial Blood Partial 29 mmHg Pressure CO2 Arterial Blood Partial 426 mmHg Pressure O2 Arterial Blood Oxygen Content 19.6 Vol % Arterial Blood 1.2 % Carboxyhemoglobin Arterial Blood Methemoglobin 0.9 % Blood Gas Hemoglobin 13.5 G/DL Oxygen Delivery Device VENT Blood Gas Ventilator Setting AC/16/550/5/100 Blood Gas Inspired Oxygen 100 % Neutrophils (%) (Auto) 88.2 % Lymphocytes (%) (Auto) 6.2 % Monocytes (%) (Auto) 5.4 % Eosinophils (%) (Auto) 0.1 % Basophils (%) (Auto) 0.1 % Neutrophils # (Auto) 4.9 TH/MM3 Lymphocytes # (Auto) 0.3 TH/MM3 Monocytes # (Auto) 0.3 TH/MM3 Eosinophils # (Auto) 0.0 TH/MM3 Basophils # (Auto) 0.0 TH/MM3 CBC Comment DIFF FINAL Differential Comment Culture Results Microbiology Date/Time Procedure Status Source Growth 06/13/16 21:44 Legionella Antigen - Final Complete Urine Catheterized Urine PRESUMPTIVE NEGATIVE FOR LEGIONELLA P... 06/13/16 21:44 Streptococcus pneumoniae Antigen (M - Final Complete Urine Catheterized Urine PRESUMPTIVE NEGATIVE FOR STREPTOCOCCU... 06/15/16 14:55 Aerobic Blood Culture - Preliminary Resulted Blood Peripheral NO GROWTH IN 1 DAY 06/15/16 14:55 Anaerobic Blood Culture - Preliminary Resulted Blood Peripheral NO GROWTH IN 1 DAY 06/15/16 15:30 Gram Stain - Final Resulted Sputum Endotracheal 06/15/16 15:30 Sputum Culture - Preliminary Resulted Sputum Endotracheal IMMATURE GROWTH - REINCUBATE 06/15/16 16:20 Aerobic Blood Culture - Preliminary Resulted Blood Peripheral NO GROWTH IN 1 DAY 06/15/16 16:20 Anaerobic Blood Culture - Preliminary Resulted Blood Peripheral NO GROWTH IN 1 DAY Imaging Studies Last 24 hours Impressions Chest X-Ray 06/16/16 0000 Signed Impressions: Service Date/Time: Thursday, June 16, 2016 05:58 - CONCLUSION: Possible left lung base consolidation. K. Chas Owens MD Administered Medications Medications (Trade) Dose Ordered Sig/Tj Route PRN Reason Start Time Stop Time Status Last Admin Dose Admin Chlorhexidine Gluconate 3 pack 3 pack Taper DAILY@04 TOP 06/12/16 04:00 06/08/17 03:59 06/16/16 05:11 Potassium Chloride 100 ml @ 50 mls/hr Q2H PRN IV For Potassium 2.8 - 3.2 mEq/L 06/11/16 16:45 06/15/16 18:47 Potassium Chloride 100 ml @ 25 mls/hr UNSCH PRN IV For Potassium 3.3 - 3.5 mEq/L 06/11/16 16:45 06/13/16 05:00 Sodium Phosphate/ Sodium Chloride (Sodium Phosphate Inj/NS 250 ml Inj) 250 ml @ 42 mls/hr UNSCH PRN IV For Phosphorus < 2.5 mg/dL 06/11/16 16:45 06/12/16 00:45 Budesonide/ Formoterol Fumarate (Symbicort 80-4.5 Mcg Inh) 2 puff BID INH 06/11/16 21:00 06/13/16 21:10 Ondansetron HCl (Zofran Inj) 4 mg Q6HR PRN IV PUSH vomiting/nausea 06/11/16 17:30 06/14/16 22:45 Hydralazine HCl (Apresoline Inj) 20 mg Q4H PRN IV PUSH SYS BP GREATER THAN 160 MMHG 06/12/16 07:15 06/16/16 08:24 Amlodipine Besylate (Norvasc) 5 mg DAILY PO 06/12/16 09:00 Hold 06/15/16 09:44 Losartan Potassium (Cozaar) 100 mg DAILY PO 06/12/16 09:00 Hold 06/15/16 09:44 Acetaminophen/ Hydrocodone Bitart ([place] 7.5-325 Mg) 1 tab Q4H PRN PO pain 4-10 06/12/16 11:30 Hold 06/15/16 09:58 Acetaminophen/ Butalbital/ Caffeine (Fioricet 325-50-40) 1 tab Q8H PRN PO headache 06/13/16 20:15 Hold 06/15/16 06:10 Chlorhexidine Gluconate 15 ml 15 ml BID@08,20 MT 06/15/16 20:00 06/16/16 08:26 Diltiazem HCl/ Sodium Chloride (Cardizem Inj/NS Inj) 125 ml @ 0 mls/hr TITRATE IV 06/16/16 09:45 06/16/16 09:59 Objective Remarks GENERAL: Middle aged male, lying in bed, sleepy. and two daughters at bedside. SKIN: Warm and dry. HEAD: Normocephalic. EYES: No injection or drainage. NECK: Supple, trachea midline. CARDIOVASCULAR: +S1/S2 RESPIRATORY: anterior selby clear. GASTROINTESTINAL: Abdomen soft, non-tender, nondistended. EXTREMITIES: No cyanosis NEUROLOGICAL: awake and alert, but lethargic. Assessment/Plan Problem List: (1) Squamous cell carcinoma of head and neck Status: Acute Plan: --neck mass biopsy showed poorly differentiated squamous cell carcinoma. --diagnosed with left tongue cancer and treatment with chemoradiation 2 years ago in [facility] --2 months ago noticed increased left neck swelling --CT soft tissue neck showed large retromandibular mass on left with adjacent matted jugular chain adenopathy and isolated abnormal appearing nodes in the posterior left neck. Assessment 71y/o male with history of head and neck cancer, admitted with syncope, nausea, weakness. h/o Hypertension. Atrial fibrillation. Plan 1. at the patient's request I discussed the biopsy results with the patient's daughters and ex-. He did not wish to hear the results today. Questions answered. Ex- says she will try to help obtain the name of the patient's previous oncologist in [facility]. 2. continue supportive care 3. once patient is recovered, will arrange outpatient follow up in clinic. Attending Statement The exam, history, and the medical decision-making described in the above note were completed with the assistance of the mid-level provider. I reviewed and agree with the findings presented. I attest that I had a [id number] encounter with the patient on the same day, and personally performed and documented my assessment and findings in the medical record. Colleen Dey Jun 16, 2016 14:46 Rey Ojeda MD Jun 17, 2016 01:02
[2016-06-16] MEDS ORDERED: METOPROLOL TARTRATE 25 MG TAB PO SCH (21:00)
[2016-06-16] MEDS: SODIUM CHLORIDE 0.9% FLUSH 5 ML FLUSH IVF SCH (21:43)
--- NOTE | 2016-06-16 22:54 | EKG ---
Date Performed: 06/15/2016 Time Performed: 15:42:27 PTAGE: 71 years EKG: Sinus rhythm WITH SINUS ARRHYTHMIA MINIMAL VOLTAGE CRITERIA FOR LVH, CONSIDER NORMAL VARIANT BORDERLINE ECG PREVIOUS TRACING : 06/12/2016 09.39 DOCTOR: Brent Brewster Interpretating Date/Time 06/16/2016 22:47:44
[2016-06-17] VITALS (13 sets, daily range): BP systolic 98–146; BP diastolic 56–68; PULSE 66–137; RESP 16–20; TEMP 98.6–99.2; O2SAT 92–99
[2016-06-17] MEDS: CHLORHEXIDINE GLUCONATE 2 % 1 PACK (2 CLOTHS) TOP SCH (04:30)
[2016-06-17] MEDS: DILTIAZEM INJ 125 MG in SODIUM CHLORIDE 0.9% INJ 100 ML IV SCH (04:30)
[2016-06-17 05:16] LABS: HEMATOCRIT 36.4 % (39.0-51.0); MEAN CELL VOLUME 88.1 FL (80.0-100.0); MEAN CORPUSCULAR HEMOGLOBIN 30.5 PG (27.0-34.0); MEAN CORPUSCULAR HGB CONC 34.6 % (32.0-36.0); PLATELET COUNT 288 TH/MM3 (150-450); RED BLOOD COUNT 4.13 MIL/MM3 (4.50-5.90); RED CELL DISTRIBUTION WIDTH 13.4 % (11.6-17.2); REVIEW FLAG FINAL; WHITE BLOOD COUNT 10.4 TH/MM3 (4.0-11.0)
--- NOTE | 2016-06-17 07:57 | HHI.CCPN ---
Subjective Remarks/Hospital Course 71-year-old male with past medical history of paroxysmal atrial fibrillation, history of head and neck squamous cell cancer, new left submandibular mass FNA 10 days ago, results pending who presented to the emergency room with history of headache, syncopal episode, hypotension. Patient called EMS for severe headache and possible syncope. He denies fall and had been on couch but unable to get up. When EMS arrived it took a while for the patient open the door, he eventually crawled to the door and opened it. His blood pressure initially by EMS was less than 80. They placed 22-gauge Angiocath they started IV fluid. In the ER patient continued to be intermittently hypotensive with systolic blood pressure in 70s. Blood pressure improved with multiple fluid boluses he received 4 L of normal saline IV fluids. His heart rate was in 130s to 140s, with 20 mg of IV Cardizem push patient converted to NSR. CAT scan of his head and abdomen pelvis were essentially within normal limits. CT of the head showed right infratemporal fossa air (?this could be related to the FNA on the left neck). CAT scan of his chest showed interstitial infiltrates bilaterally, predominantly upper lobe. Dr. Gale also placed a left subclavian central line. I evaluated the patient in the ED. Patient appears with mild to moderate distress due to nausea, vomiting and anxiety. He and his noted that since last 5 days he had not been having adequate po mouth intake due to loss of appetite. He does think that he lost consciousness. I have ordered MRI and MRA of the brain and neck. Patient will be empirically covered for sepsis with Zosyn and azithromycin given pulmonary infiltrates. His lab works shows a creatinine of 1.5. His troponin was 0.12. His aPTT came back at 121 which I have repeated. Hematology consult had been requested and also will request records from Dr. Ye's office. His troponin is mildly elevated, could be demand ischemia, but will rule out NSTEMI SUBJECTIVE 06/12: Troponin increased to 5.15. patient is on IV Heparin, ASA, metoprolol and cardiology consult/Echo pending. Cr improved from 1.5 ot 0.9. UO 1.4 L in 24 hours. Hypotension resolved, in act hypertensive now. Will resume his Losartan and Norvasc CCM RECONSULT NOTE 06/15/16: Apparently, plan was for medical management of acute CA due to coexisting recurrent self neck cancer and probable requirement for chemotherapy and surgery (With PCI terminologist antiplatelet will be needed) Patient developed acute change in mental status and blood pressure dropped to systolic of 50s. A Halicat was called and patient was moved to ICU. I immediately evaluated the patient. He transiently became unresponsive after 1 L fluid bolus, but blood pressure dropped to systolic of 40s again and patient became unconscious. Levophed was started without immediate response so 0.5 mg of epinephrine IV push was given with improvement in blood pressure. Patient remained unresponsive. He was intubated for airway protection. Stat cardiac enzymes, EKG, chest x-ray ordered. Stat echo and EEG ordered. All further work up is pending at this time. Discuss with Dr. Reza, if cleared by oncology he is willing to take patient for cardiac catheterization. Status post CT- guided biopsy 06/14/16 06/16/16: Serial troponins trending down. Hypotension seems to have resolved. On the vent opens eyes follows commands. CT of the head yesterday had been negative. I will discuss with Dr. Reza again regarding cardiac catheterization 06/17 No events overnight. On Cardizem drip 5mg/hr. Patient denies any CP or SOB. Afebrile. Objective Vital Signs Date Time Temp Pulse Resp B/P Pulse Ox O2 Delivery O2 Flow Rate FiO2 06/17/16 06:00 70 06/17/16 04:00 99.1 19 135/61 96 06/16/16 21:20 21 06/16/16 19:00 Room Air 06/16/16 13:10 4.00 Intake and Output 06/16/16 06/16/16 06/17/16 08:00 16:00 00:00 Intake Total 313 ml 416 ml 1227 ml Output Total 250 ml 300 ml 850 ml Balance 63 ml 116 ml 377 ml Result Diagram: 06/17/16 0430 06/16/16 0420 Other Results Laboratory Tests Test 06/17/16 04:30 White Blood Count 10.4 TH/MM3 Red Blood Count 4.13 MIL/MM3 Hemoglobin 12.6 GM/DL Hematocrit 36.4 % Mean Corpuscular Volume 88.1 FL Mean Corpuscular Hemoglobin 30.5 PG Mean Corpuscular Hemoglobin 34.6 % Concent Red Cell Distribution Width 13.4 % Platelet Count 288 TH/MM3 Mean Platelet Volume 7.6 FL Imaging Last Impressions Chest X-Ray 06/16/16 0000 Signed Impressions: Service Date/Time: Thursday, June 16, 2016 05:58 - CONCLUSION: Possible left lung base consolidation. Katlyn Owens MD Head CT 06/15/16 0000 Signed Impressions: Service Date/Time: May 18:03 - CONCLUSION: Stable appearance of the brain with no acute intracranial process to explain current clinical symptoms. Jamal Kerr MD Soft Tissue Biopsy 06/13/16 0000 Signed Impressions: Service Date/Time: Tuesday, June 14, 2016 15:14 - CONCLUSION: Uncomplicated CT guided biopsy. Tang Mckeon MD Neck Magnetic Resonance Angiography 06/11/16 0000 Signed Impressions: Service Date/Time: Saturday, June 11, 2016 17:26 - CONCLUSION: There is no hemodynamically significant of stenosis. Guillaume Mims MD FACR Head Magnetic Resonance Angiography 06/11/16 0000 Signed Impressions: Service Date/Time: Saturday, June 11, 2016 17:26 - CONCLUSION: Atherosclerotic intracranial vascular disease as described above. Guillaume Mims MD FACR CT Angiography 06/11/16 0000 Signed Impressions: Service Date/Time: Saturday, June 11, 2016 15:12 - CONCLUSION: 1. Cardiomegaly with moderate interstitial edema. 2. There is no evidence for central pulmonary emboli. 3. Marked coronary artery calcifications. 4. Prominent pulmonary arteries suggesting pulmonary artery hypertension. Guillaume Mims MD FACR Brain MRI 06/11/16 0000 Signed Impressions: Service Date/Time: Saturday, June 11, 2016 17:26 - CONCLUSION: There is no evidence for edema or infarction. Guillaume Mims MD FACR Abdomen/Pelvis CT 06/11/16 0000 Signed Impressions: Service Date/Time: Saturday, June 11, 2016 15:12 - CONCLUSION: Minimal gallbladder wall thickening. Otherwise, benign appearing gallbladder. I do not see etiology for patient's abdominal pain. Guillaume Mims MD FACR Objective Remarks GENERAL: Patient is lying in bed in NAD SKIN: Warm and dry. HEAD: Normocephalic. EYES: No scleral icterus. No injection or drainage. NECK: Supple, trachea midline. No JVD or lymphadenopathy. CARDIOVASCULAR: Regular rate and rhythm without murmurs, gallops, or rubs. RESPIRATORY: Breath sounds equal bilaterally. No accessory muscle use. GASTROINTESTINAL: Abdomen soft, non-tender, nondistended. MUSCULOSKELETAL: No cyanosis, or edema. BACK: Nontender without obvious deformity. No CVA tenderness. Neuro: Awake and alert A/P Problem List: (1) NSTEMI (non-ST elevated myocardial infarction) ICD Code: I21.4 Status: Acute (2) Syncope ICD Code: R55 Status: Acute (3) Atrial fibrillation with RVR ICD Code: I48.91 Status: Acute (4) Hypotension ICD Code: I95.9 Status: Acute (5) Elevated troponin ICD Code: R79.89 Status: Acute (6) Probable sepsis ICD Code: A41.9 Status: Acute (7) Acute kidney failure ICD Code: N17.9 Status: Acute (8) Probable pneumonia Status: Acute (9) Headache ICD Code: R51 Status: Chronic (10) Atrial fibrillation, chronic ICD Code: I48.2 Status: Chronic Assessment and Plan NEURO: Altered mentation/acute encephalopathy- Resolved Cardiac Syncope -CT of the head done 06/15/69 negative for acute findings. -MRI MRA of the brain, essentially negative. Syncope most likely from severe hypotension RESP/ENT: Acute respiratory failure-intubated 06/15/16- Extubated 06/16 Left submandibular mass Moderate interstitial infiltrates History of squamous cell carcinoma head and neck in 2012 -Continue with oxygen keep sat >92% -Bronchodilators -NIPPV PRN for resp distress -CT of the chest on admission shows bilateral interstitial infiltrates predominantly upper lobes. Differential includes interstitial lung disease versus atypical pneumonia -Previously treated with broad-spectrum antibiotics CV: Shock, most likely cardiogenic -resolved NSTEMI A. fib with RVR History of chronic atrial fibrillation -Monitor HR and BP keep MAP>65mmHg -Cardiology Dr. Reza, 2 D Echo STAT 06/15. EF 60% cannot rule out wall motion abnormality -s/p cath on 06/16 PCI with bare metal stent of the ostia RCA -On ASA , Plavix, Lipitor, Prinivil 5mg daily, Lopressor 12.5mg Q12 GI: Nausea/vomiting -Use when necessary Zofran. -Protonix for GI prophylaxis -On PO heart healthy diet : Acute kidney failure -resolved Dehydration -Monitor renal function closely. Strict intake output ID: -All cultures negative. Monitor for signs of infection( Fever, WBC) HEME: New left submandibular mass probable recurrence of squamous cell cancer History of squamous cell cancer of the scalp and neck in 2011 -Hematology oncology Dr. Ojeda following -s/p Biopsy 06/14/16. metastatic poorly diff squamous cell ca -Monitor CBC, CMP, coags. ENDO: -Electrolyte replacement protocol -Sliding-scale insulin if needed PROPH: -Bilateral lower extremity SCDs. Lovenox. IV Protonix LINES: -Left subclavian central line placed by Dr. Gale Will sign off and transfer care to [facility] Level 3 Problem Qualifiers (1) Syncope: Qualified Code: R55 - Syncope, unspecified syncope type (2) Hypotension: Qualified Code: I95.9 - Hypotension, unspecified hypotension type (3) Headache: Qualified Code: R51 - Chronic intractable headache, unspecified headache type Rianna Bertrand MD Jun 17, 2016 07:57
[2016-06-17] MEDS: CHLORHEXIDINE 0.12% (ORAL KIT) 15 ML CUP MT SCH ×2 (08:00→20:00)
--- NOTE | 2016-06-17 08:41 | PD.CARD.PN ---
Subjective Subjective Remarks No chest pain, no shortness breath, doing well Objective Medications Current Medications Medications (Trade) Dose Ordered Sig/Tj Route Start Time Stop Time Status Last Admin (Brethine Inj) 1 mg UNSCH PRN SQ 06/11/16 16:15 Miscellaneous Information 1 Q361D XX 06/11/16 16:30 (Chlorhexidine 2% Cloth) Taper DAILY@04 TOP 06/12/16 04:00 06/08/17 03:59 06/17/16 04:30 Chlorhexidine Gluconate 3 pack 3 pack UNSCH PRN TOP 06/11/16 16:30 Potassium Chloride 100 ml @ 50 mls/hr Q2H PRN IV 06/11/16 16:45 06/15/16 18:47 (KCl 20 Meq Premix Inj) 100 ml @ 50 mls/hr Q2H PRN IV 06/11/16 16:45 Potassium Chloride 40 meq 40 meq UNSCH PRN PO/TUBE 06/11/16 16:45 Potassium Chloride 100 ml @ 25 mls/hr UNSCH PRN IV 06/11/16 16:45 06/13/16 05:00 Potassium Chloride 100 ml @ 50 mls/hr Q2H PRN IV 06/11/16 16:45 (Magnesium Sulfate Inj/NS Inj) 100 ml @ 50 mls/hr UNSCH PRN IV 06/11/16 16:45 Magnesium Oxide 800 mg 800 mg UNSCH PRN PO 06/11/16 16:45 (Magnesium Sulfate Inj/NS Inj) 100 ml @ 50 mls/hr UNSCH PRN IV 06/11/16 16:45 Potassium Phosphate 2000 mg 2,000 mg Q4H PRN PO 06/11/16 16:45 (Sodium Phosphate Inj/NS 250 ml Inj) 250 ml @ 42 mls/hr UNSCH PRN IV 06/11/16 16:45 06/12/16 00:45 (KCl 40 Meq/30 ml Liq) 40 meq UNSCH PRN PO/TUBE 06/11/16 16:45 Potassium Phosphate 2000 mg 2,000 mg UNSCH PRN PO/TUBE 06/11/16 16:45 (Potassium Phosphate Inj/NS 250 ml Inj) 260 ml @ 42 mls/hr UNSCH PRN IV 06/11/16 16:45 (Symbicort 80-4.5 Mcg Inh) 2 puff BID INH 06/11/16 21:00 06/13/16 21:10 (Zofran Inj) 4 mg Q6HR PRN IV PUSH 06/11/16 17:30 06/14/16 22:45 (Apresoline Inj) 20 mg Q4H PRN IV PUSH 06/12/16 07:15 06/16/16 08:24 (Norvasc) 5 mg DAILY PO 06/12/16 09:00 Hold 06/15/16 09:44 (Cozaar) 100 mg DAILY PO 06/12/16 09:00 Hold 06/15/16 09:44 ([place] 7.5-325 Mg) 1 tab Q4H PRN PO 06/12/16 11:30 Hold 06/15/16 09:58 (Fioricet 325-50-40) 1 tab Q8H PRN PO 06/13/16 20:15 Hold 06/15/16 06:10 (Peridex 0.12% Liq) 15 ml BID@08,20 MT 06/15/16 20:00 06/16/16 08:26 (NS Flush) 2 ml UNSCH PRN IVF 06/16/16 11:45 (NS Flush) 2 ml BID IVF 06/16/16 21:00 06/16/16 21:43 (Aspirin Chew) 81 mg DAILY PO 06/17/16 09:00 (Plavix) 75 mg DAILY PO 06/17/16 09:00 (Prinivil) 5 mg DAILY PO 06/17/16 09:00 (Lipitor) 10 mg HS PO 06/17/16 21:00 (Lovenox Inj) 40 mg DAILY SQ 06/17/16 09:00 (Lopressor) 25 mg BID PO 06/17/16 09:00 UNV Vital Signs / I&O Vital Signs Date Time Temp Pulse Resp B/P Pulse Ox O2 Delivery O2 Flow Rate FiO2 06/17/16 06:00 70 06/17/16 04:00 70 06/17/16 04:00 99.1 70 19 135/61 96 06/17/16 02:00 71 06/17/16 00:00 98.7 78 16 126/60 99 06/17/16 00:00 78 06/16/16 22:00 81 06/16/16 21:20 98 21 06/16/16 20:00 89 06/16/16 20:00 98.9 89 12 142/74 98 06/16/16 19:00 97 Room Air 06/16/16 18:00 87 06/16/16 16:00 98.8 96 17 126/68 97 06/16/16 16:00 96 06/16/16 14:00 87 06/16/16 13:10 99 Nasal Cannula 4.00 06/16/16 13:00 98.4 82 18 134/64 98 06/16/16 13:00 82 06/16/16 10:00 93 06/16/16 09:22 91 Nasal Cannula 4.00 06/16/16 09:20 99 Non-Rebreather 06/16/16 09:15 96 Nasal Cannula 2.00 06/16/16 08:45 35 06/16/16 08:41 96 35 I/O 06/16/16 06/16/16 06/16/16 06/17/16 06/17/16 06/17/16 07:00 15:00 23:00 07:00 15:00 23:00 Intake Total 313 ml 416 ml 1227 ml 312 ml Output Total 250 ml 300 ml 850 ml 150 ml Balance 63 ml 116 ml 377 ml 162 ml Intake Oral 240 ml 720 ml 240 ml IV Total 313 ml 176 ml 507 ml 72 ml Output Urine Total 250 ml 300 ml 850 ml 150 ml Physical Exam GENERAL: NAD SKIN: Warm and dry. HEAD: Atraumatic. Normocephalic. EYES: Pupils equal and round. No scleral icterus. No injection or drainage. ENT: No nasal bleeding or discharge. Mucous membranes pink and moist. NECK: Trachea midline. No JVD. CARDIOVASCULAR: Regular rate and rhythm. RESPIRATORY: No accessory muscle use. Clear to auscultation. Breath sounds equal bilaterally. GASTROINTESTINAL: Abdomen soft, non-tender, nondistended. Hepatic and splenic margins not palpable. MUSCULOSKELETAL: Extremities without clubbing, cyanosis, or edema. No obvious deformities. Right groin no hematoma/bruit, distal pulses intact NEUROLOGICAL: Awake and alert. No obvious cranial nerve deficits. Motor grossly within normal limits. Five out of 5 muscle strength in the arms and legs. Normal speech. PSYCHIATRIC: Appropriate mood and affect; insight and judgment normal. Laboratory Laboratory Tests Test 06/17/16 04:30 White Blood Count 10.4 TH/MM3 Red Blood Count 4.13 MIL/MM3 Hemoglobin 12.6 GM/DL Hematocrit 36.4 % Mean Corpuscular Volume 88.1 FL Mean Corpuscular Hemoglobin 30.5 PG Mean Corpuscular Hemoglobin 34.6 % Concent Red Cell Distribution Width 13.4 % Platelet Count 288 TH/MM3 Mean Platelet Volume 7.6 FL Assessment and Plan Problem List: (1) NSTEMI (non-ST elevated myocardial infarction) (2) Elevated troponin (3) Atrial fibrillation with RVR (4) Neck mass (5) Hematuria Assessment and Plan 1) On Cardizem gtt at 5, increased Lopressor to 25mg BID, will attempt to wean Cardizem 2) Continue ASA/Plavix 3) Would hold on anticoagulation at this time, had hematuria on heparin gtt... will need outpatient cystoscopy Raúl Montemayor DO Jun 17, 2016 08:41
[2016-06-17] MEDS ORDERED: METOPROLOL TARTRATE 25 MG TAB PO SCH (09:00)
[2016-06-17] MEDS: ENOXAPARIN SODIUM 40 MG/0.4 ML SYRINGE SQ SCH (09:00)
[2016-06-17] MEDS: SODIUM CHLORIDE 0.9% FLUSH 5 ML FLUSH IVF SCH ×2 (09:26→20:10)
[2016-06-17] MEDS: LISINOPRIL 5 MG TAB PO SCH (09:26)
[2016-06-17] MEDS: CLOPIDOGREL 75 MG TAB PO SCH (09:26)
[2016-06-17] MEDS: ASPIRIN 81 MG CHEW TAB PO SCH (09:26)
[2016-06-17] MEDS: BUDESONIDE-FORMOTEROL 80/4.5 MCG INHALER INH SCH ×2 (09:27→20:09)
[2016-06-17 09:42] LABS: BICARBONATE 27.6 MEQ/L (21.0-32.0); POTASSIUM 3.4 MEQ/L (3.5-5.1)
--- NOTE | 2016-06-17 11:09 | PD.ONC.PN ---
Subjective Subjective Remarks Afebrile overnight. Patient resting in bed in no distress. at bedside. He denies chest pain or shortness of breath. Per his he is interested in immunotherapy but he does not want chemo. Objective Data Date Time Temp Pulse Resp B/P Pulse Ox O2 Delivery O2 Flow Rate FiO2 06/17/16 06:00 70 06/17/16 04:00 70 06/17/16 04:00 99.1 70 19 135/61 96 06/17/16 02:00 71 06/17/16 00:00 98.7 78 16 126/60 99 06/17/16 00:00 78 06/16/16 22:00 81 06/16/16 21:20 98 21 06/16/16 20:00 89 06/16/16 20:00 98.9 89 12 142/74 98 06/16/16 19:00 97 Room Air 06/16/16 18:00 87 06/16/16 16:00 98.8 96 17 126/68 97 06/16/16 16:00 96 06/16/16 14:00 87 06/16/16 13:10 99 Nasal Cannula 4.00 06/16/16 13:00 98.4 82 18 134/64 98 06/16/16 13:00 82 06/17/16 06/17/16 06/17/16 07:00 15:00 23:00 Intake Total 312 ml Output Total 150 ml Balance 162 ml Result Diagram: 06/17/16 0430 06/17/16 0845 Laboratory Results Laboratory Tests Test 06/17/16 06/17/16 04:30 08:45 White Blood Count 10.4 TH/MM3 Red Blood Count 4.13 MIL/MM3 Hemoglobin 12.6 GM/DL Hematocrit 36.4 % Mean Corpuscular Volume 88.1 FL Mean Corpuscular Hemoglobin 30.5 PG Mean Corpuscular Hemoglobin 34.6 % Concent Red Cell Distribution Width 13.4 % Platelet Count 288 TH/MM3 Mean Platelet Volume 7.6 FL Sodium Level 137 MEQ/L Potassium Level 3.4 MEQ/L Chloride Level 103 MEQ/L Carbon Dioxide Level 27.6 MEQ/L Anion Gap 6 MEQ/L Blood Urea Nitrogen 12 MG/DL Creatinine 0.73 MG/DL Estimat Glomerular Filtration 107 ML/MIN Rate Random Glucose 88 MG/DL Calcium Level 8.0 MG/DL Culture Results Microbiology Date/Time Procedure Status Source Growth 06/15/16 14:55 Aerobic Blood Culture - Preliminary Resulted Blood Peripheral NO GROWTH IN 1 DAY 06/15/16 14:55 Anaerobic Blood Culture - Preliminary Resulted Blood Peripheral NO GROWTH IN 1 DAY 06/15/16 15:30 Gram Stain - Final Resulted Sputum Endotracheal 06/15/16 15:30 Sputum Culture - Preliminary Resulted Sputum Endotracheal IMMATURE GROWTH - REINCUBATE 06/15/16 16:20 Aerobic Blood Culture - Preliminary Resulted Blood Peripheral NO GROWTH IN 1 DAY 06/15/16 16:20 Anaerobic Blood Culture - Preliminary Resulted Blood Peripheral NO GROWTH IN 1 DAY Administered Medications Medications (Trade) Dose Ordered Sig/Tj Route PRN Reason Start Time Stop Time Status Last Admin Dose Admin Chlorhexidine Gluconate Taper DAILY@04 TOP 06/12/16 04:00 06/08/17 03:59 06/17/16 04:30 Potassium Chloride 100 ml @ 50 mls/hr Q2H PRN IV For Potassium 2.8 - 3.2 mEq/L 06/11/16 16:45 06/15/16 18:47 Potassium Chloride 100 ml @ 25 mls/hr UNSCH PRN IV For Potassium 3.3 - 3.5 mEq/L 06/11/16 16:45 06/13/16 05:00 Sodium Phosphate/ Sodium Chloride (Sodium Phosphate Inj/NS 250 ml Inj) 250 ml @ 42 mls/hr UNSCH PRN IV For Phosphorus < 2.5 mg/dL 06/11/16 16:45 06/12/16 00:45 Budesonide/ Formoterol Fumarate (Symbicort 80-4.5 Mcg Inh) 2 puff BID INH 06/11/16 21:00 06/17/16 09:27 Ondansetron HCl (Zofran Inj) 4 mg Q6HR PRN IV PUSH vomiting/nausea 06/11/16 17:30 06/14/16 22:45 Hydralazine HCl (Apresoline Inj) 20 mg Q4H PRN IV PUSH SYS BP GREATER THAN 160 MMHG 06/12/16 07:15 06/16/16 08:24 Amlodipine Besylate (Norvasc) 5 mg DAILY PO 06/12/16 09:00 Hold 06/15/16 09:44 Losartan Potassium (Cozaar) 100 mg DAILY PO 06/12/16 09:00 Hold 06/15/16 09:44 Acetaminophen/ Hydrocodone Bitart ([place] 7.5-325 Mg) 1 tab Q4H PRN PO pain 4-10 06/12/16 11:30 Hold 06/15/16 09:58 Acetaminophen/ Butalbital/ Caffeine (Fioricet 325-50-40) 1 tab Q8H PRN PO headache 06/13/16 20:15 Hold 06/15/16 06:10 Chlorhexidine Gluconate (Peridex 0.12% Liq) 15 ml BID@08,20 MT 06/15/16 20:00 06/16/16 08:26 IV Flush (NS Flush) 2 ml BID IVF 06/16/16 21:00 06/17/16 09:26 Aspirin (Aspirin Chew) 81 mg DAILY PO 06/17/16 09:00 06/17/16 09:26 Clopidogrel Bisulfate (Plavix) 75 mg DAILY PO 06/17/16 09:00 06/17/16 09:26 Lisinopril (Prinivil) 5 mg DAILY PO 06/17/16 09:00 06/17/16 09:26 Enoxaparin Sodium (Lovenox Inj) 40 mg DAILY SQ 06/17/16 09:00 06/17/16 09:00 Metoprolol Tartrate (Lopressor) 25 mg BID PO 06/17/16 09:00 06/17/16 09:26 Objective Remarks GENERAL: Middle aged male, lying in bed. Quickly falls back to sleep once awakened. Visitor at bedside. SKIN: Warm and dry. HEAD: Normocephalic. EYES: No injection or drainage. NECK: Supple, trachea midline. CARDIOVASCULAR: +S1/S2 RESPIRATORY: anterior selby clear. GASTROINTESTINAL: Abdomen soft, non-tender, nondistended. EXTREMITIES: No cyanosis NEUROLOGICAL: awake and alert, but lethargic. Assessment/Plan Problem List: (1) Squamous cell carcinoma of head and neck Status: Acute Plan: --neck mass biopsy showed poorly differentiated squamous cell carcinoma. --diagnosed with left tongue cancer and treatment with chemoradiation 2 years ago in [facility] --2 months ago noticed increased left neck swelling --CT soft tissue neck showed large retromandibular mass on left with adjacent matted jugular chain adenopathy and isolated abnormal appearing nodes in the posterior left neck. (2) Atrial fibrillation with RVR Status: Acute Plan: -- Cardiology following -- On Cardizem drip at 10mcg/hr -- Attempt to wean Assessment 71y/o male with history of head and neck cancer, admitted with syncope, nausea, weakness. h/o Hypertension. Atrial fibrillation. Plan 1. The patient's states that she is trying to get a hold of his records from [place]. 2. Continue supportive care. 3. Once pt has recovered, we will see him as an outpatient. Attending Statement The exam, history, and the medical decision-making described in the above note were completed with the assistance of the mid-level provider. I reviewed and agree with the findings presented. I attest that I had a [id number] encounter with the patient on the same day, and personally performed and documented my assessment and findings in the medical record. Ramona Rogers Jun 17, 2016 11:09 Rey Ojeda MD Jun 18, 2016 00:01
[2016-06-17] MEDS ORDERED: METOPROLOL TARTRATE 5 MG/5 ML VIAL IV PUSH ONE ×2 (13:00→15:45)
[2016-06-17] MEDS: ACETAMINOPHEN 325 MG TAB PO PRN (13:59)
[2016-06-17] MEDS: METOPROLOL TARTRATE 25 MG TAB PO SCH (17:21)
[2016-06-17] MEDS: ATORVASTATIN 10 MG TAB PO SCH (20:09)
[2016-06-17] MEDS: ACETAMIN 325 MG/BUTALBITAL 50 MG/CAFFEINE 40 MG TAB PO PRN (21:50)
[2016-06-18] VITALS (13 sets, daily range): BP systolic 127–189; BP diastolic 59–91; PULSE 71–98; RESP 16–25; TEMP 98.1–99; O2SAT 96–99
[2016-06-18] MEDS: METOPROLOL TARTRATE 25 MG TAB PO SCH ×3 (00:39→17:03)
[2016-06-18 05:00] LABS: AUTOMATED NEUTROPHIL # 6.4 TH/MM3 (1.8-7.7); BASOPHIL % 0.6 % (0.0-2.0); EOSINOPHIL # 0.2 TH/MM3 (0-0.4); EOSINOPHIL % 2.5 % (0.0-4.0); HEMATOCRIT 35.1 % (39.0-51.0); HEMO FLAGS DIFF FINAL; LYMPH % 11.1 % (9.0-44.0); MEAN CELL VOLUME 88.1 FL (80.0-100.0); MEAN CORPUSCULAR HEMOGLOBIN 30.3 PG (27.0-34.0); MEAN CORPUSCULAR HGB CONC 34.4 % (32.0-36.0); MONO % 12.4 % (0.0-8.0); NEUT % 73.4 % (16.0-70.0); PLATELET COUNT 283 TH/MM3 (150-450); RED BLOOD COUNT 3.98 MIL/MM3 (4.50-5.90); RED CELL DISTRIBUTION WIDTH 13.1 % (11.6-17.2); WHITE BLOOD COUNT 8.8 TH/MM3 (4.0-11.0)
[2016-06-18 05:18] LABS: BICARBONATE 27.9 MEQ/L (21.0-32.0); MAGNESIUM 1.9 MG/DL (1.5-2.5); POTASSIUM 3.6 MEQ/L (3.5-5.1)
--- NOTE | 2016-06-18 07:44 | PD.CARD.PN ---
Subjective Subjective Remarks No chest pain, no shortness of breath, some afib with RVR over night Objective Medications Current Medications Medications (Trade) Dose Ordered Sig/Tj Route Start Time Stop Time Status Last Admin (Brethine Inj) 1 mg UNSCH PRN SQ 06/11/16 16:15 Miscellaneous Information 1 Q361D XX 06/11/16 16:30 (Chlorhexidine 2% Cloth) Taper DAILY@04 TOP 06/12/16 04:00 06/08/17 03:59 06/17/16 04:30 Chlorhexidine Gluconate 3 pack 3 pack UNSCH PRN TOP 06/11/16 16:30 Potassium Chloride 100 ml @ 50 mls/hr Q2H PRN IV 06/11/16 16:45 06/15/16 18:47 (KCl 20 Meq Premix Inj) 100 ml @ 50 mls/hr Q2H PRN IV 06/11/16 16:45 06/17/16 17:21 Potassium Chloride 40 meq 40 meq UNSCH PRN PO/TUBE 06/11/16 16:45 Potassium Chloride 100 ml @ 25 mls/hr UNSCH PRN IV 06/11/16 16:45 06/13/16 05:00 Potassium Chloride 100 ml @ 50 mls/hr Q2H PRN IV 06/11/16 16:45 06/17/16 13:00 (Magnesium Sulfate Inj/NS Inj) 100 ml @ 50 mls/hr UNSCH PRN IV 06/11/16 16:45 Magnesium Oxide 800 mg 800 mg UNSCH PRN PO 06/11/16 16:45 (Magnesium Sulfate Inj/NS Inj) 100 ml @ 50 mls/hr UNSCH PRN IV 06/11/16 16:45 Potassium Phosphate 2000 mg 2,000 mg Q4H PRN PO 06/11/16 16:45 (Sodium Phosphate Inj/NS 250 ml Inj) 250 ml @ 42 mls/hr UNSCH PRN IV 06/11/16 16:45 06/12/16 00:45 (KCl 40 Meq/30 ml Liq) 40 meq UNSCH PRN PO/TUBE 06/11/16 16:45 Potassium Phosphate 2000 mg 2,000 mg UNSCH PRN PO/TUBE 06/11/16 16:45 (Potassium Phosphate Inj/NS 250 ml Inj) 260 ml @ 42 mls/hr UNSCH PRN IV 06/11/16 16:45 (Symbicort 80-4.5 Mcg Inh) 2 puff BID INH 06/11/16 21:00 06/17/16 20:09 (Zofran Inj) 4 mg Q6HR PRN IV PUSH 06/11/16 17:30 06/14/16 22:45 (Apresoline Inj) 20 mg Q4H PRN IV PUSH 06/12/16 07:15 06/16/16 08:24 (Norvasc) 5 mg DAILY PO 06/12/16 09:00 Hold 06/15/16 09:44 (Cozaar) 100 mg DAILY PO 06/12/16 09:00 Hold 06/15/16 09:44 ([place] 7.5-325 Mg) 1 tab Q4H PRN PO 06/12/16 11:30 Hold 06/15/16 09:58 (Peridex 0.12% Liq) 15 ml BID@08,20 MT 06/15/16 20:00 06/16/16 08:26 (NS Flush) 2 ml UNSCH PRN IVF 06/16/16 11:45 (NS Flush) 2 ml BID IVF 06/16/16 21:00 06/17/16 20:10 (Aspirin Chew) 81 mg DAILY PO 06/17/16 09:00 06/17/16 09:26 (Plavix) 75 mg DAILY PO 06/17/16 09:00 06/17/16 09:26 (Prinivil) 5 mg DAILY PO 06/17/16 09:00 06/17/16 09:26 (Lipitor) 10 mg HS PO 06/17/16 21:00 06/17/16 20:09 (Lovenox Inj) 40 mg DAILY SQ 06/17/16 09:00 06/17/16 09:00 (Tylenol) 650 mg Q6H PRN PO 06/17/16 14:00 06/17/16 13:59 (Lopressor) 25 mg Q8H PO 06/17/16 17:00 06/18/16 00:39 (Fioricet 325-50-40) 1 tab Q8H PRN PO 06/17/16 21:30 06/17/16 21:50 Vital Signs / I&O Vital Signs Date Time Temp Pulse Resp B/P Pulse Ox O2 Delivery O2 Flow Rate FiO2 06/18/16 06:00 71 06/18/16 04:00 78 06/18/16 04:00 98.9 78 18 175/89 97 06/18/16 02:00 72 06/18/16 00:00 81 06/18/16 00:00 99.0 81 17 127/59 99 06/17/16 23:10 20 06/17/16 22:00 75 06/17/16 20:00 66 06/17/16 20:00 98.6 66 20 126/67 98 06/17/16 19:55 97 21 06/17/16 19:00 97 Room Air 06/17/16 18:00 74 06/17/16 16:00 70 06/17/16 16:00 98.7 78 18 98/56 92 06/17/16 14:59 19 06/17/16 14:00 108 06/17/16 12:00 118 06/17/16 12:00 98.8 118 17 146/61 96 06/17/16 10:00 137 06/17/16 08:00 99.2 79 18 144/68 97 06/17/16 08:00 67 I/O 06/17/16 06/17/16 06/17/16 06/18/16 06/18/16 06/18/16 07:00 15:00 23:00 07:00 15:00 23:00 Intake Total 312 ml 370 ml 300 ml 150 ml Output Total 150 ml 1400 ml 350 ml 800 ml Balance 162 ml -1030 ml -50 ml -650 ml Intake Oral 240 ml 120 ml 150 ml 150 ml IV Total 72 ml 250 ml 150 ml Output Urine Total 150 ml 1400 ml 350 ml 800 ml Physical Exam GENERAL: NAD SKIN: Warm and dry. HEAD: Atraumatic. Normocephalic. EYES: Pupils equal and round. No scleral icterus. No injection or drainage. ENT: No nasal bleeding or discharge. Mucous membranes pink and moist. NECK: Trachea midline. No JVD. CARDIOVASCULAR: Regular rate and rhythm. RESPIRATORY: No accessory muscle use. Clear to auscultation. Breath sounds equal bilaterally. GASTROINTESTINAL: Abdomen soft, non-tender, nondistended. Hepatic and splenic margins not palpable. MUSCULOSKELETAL: Extremities without clubbing, cyanosis, or edema. No obvious deformities. Right groin no hematoma/bruit, distal pulses intact NEUROLOGICAL: Awake and alert. No obvious cranial nerve deficits. Motor grossly within normal limits. Five out of 5 muscle strength in the arms and legs. Normal speech. PSYCHIATRIC: Appropriate mood and affect; insight and judgment normal. Laboratory Laboratory Tests Test 06/17/16 06/18/16 08:45 04:40 Sodium Level 137 MEQ/L 137 MEQ/L Potassium Level 3.4 MEQ/L 3.6 MEQ/L Chloride Level 103 MEQ/L 102 MEQ/L Carbon Dioxide Level 27.6 MEQ/L 27.9 MEQ/L Anion Gap 6 MEQ/L 7 MEQ/L Blood Urea Nitrogen 12 MG/DL 13 MG/DL Creatinine 0.73 MG/DL 0.81 MG/DL Estimat Glomerular Filtration 107 ML/MIN 94 ML/MIN Rate Random Glucose 88 MG/DL 86 MG/DL Calcium Level 8.0 MG/DL 7.8 MG/DL White Blood Count 8.8 TH/MM3 Red Blood Count 3.98 MIL/MM3 Hemoglobin 12.1 GM/DL Hematocrit 35.1 % Mean Corpuscular Volume 88.1 FL Mean Corpuscular Hemoglobin 30.3 PG Mean Corpuscular Hemoglobin 34.4 % Concent Red Cell Distribution Width 13.1 % Platelet Count 283 TH/MM3 Mean Platelet Volume 7.3 FL Neutrophils (%) (Auto) 73.4 % Lymphocytes (%) (Auto) 11.1 % Monocytes (%) (Auto) 12.4 % Eosinophils (%) (Auto) 2.5 % Basophils (%) (Auto) 0.6 % Neutrophils # (Auto) 6.4 TH/MM3 Lymphocytes # (Auto) 1.0 TH/MM3 Monocytes # (Auto) 1.1 TH/MM3 Eosinophils # (Auto) 0.2 TH/MM3 Basophils # (Auto) 0.0 TH/MM3 CBC Comment DIFF FINAL Differential Comment Phosphorus Level 3.1 MG/DL Magnesium Level 1.9 MG/DL Assessment and Plan Problem List: (1) NSTEMI (non-ST elevated myocardial infarction) (2) Elevated troponin (3) Atrial fibrillation with RVR (4) Neck mass (5) Hematuria Assessment and Plan 1) Cardizem gtt off, some afib with RVR over night, Lopressor increased last night 2) Continue ASA/Plavix 3) Would hold on anticoagulation at this time, had hematuria on heparin gtt... will need outpatient cystoscopy 4) Dr. Reza will be back to assume care tomorrow, please call with questions Raúl Montemayor DO Jun 18, 2016 07:44
[2016-06-18] MEDS: CHLORHEXIDINE 0.12% (ORAL KIT) 15 ML CUP MT SCH ×2 (08:00→19:35)
[2016-06-18] MEDS: CLOPIDOGREL 75 MG TAB PO SCH (08:51)
[2016-06-18] MEDS: ACETAMIN 325 MG/BUTALBITAL 50 MG/CAFFEINE 40 MG TAB PO PRN ×2 (08:51→17:05)
[2016-06-18] MEDS: SODIUM CHLORIDE 0.9% FLUSH 5 ML FLUSH IVF SCH ×2 (08:52→20:01)
[2016-06-18] MEDS: ASPIRIN 81 MG CHEW TAB PO SCH (08:52)
[2016-06-18] MEDS: ENOXAPARIN SODIUM 40 MG/0.4 ML SYRINGE SQ SCH (08:52)
[2016-06-18] MEDS: BUDESONIDE-FORMOTEROL 80/4.5 MCG INHALER INH SCH ×2 (08:52→20:01)
[2016-06-18] MEDS: LISINOPRIL 5 MG TAB PO SCH (08:52)
[2016-06-18] MEDS: hydrALAZINE HCL 20 MG/ML VIAL IV PUSH PRN (09:52)
--- NOTE | 2016-06-18 16:09 | HHI.PR ---
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 , H/O tongue cancer Recent NC status post heart catheter and stenting, status post cardiogenic shock Patient resting in bed denied chest pain or short of breath, he complained of headache starting in the neck going to the head especially when he eats food Objective Vitals Vital Signs Date Time Temp Pulse Resp B/P Pulse Ox O2 Delivery O2 Flow Rate FiO2 06/18/16 14:00 80 06/18/16 12:00 98.1 88 16 141/67 97 06/18/16 12:00 88 06/18/16 10:00 80 06/18/16 09:51 17 06/18/16 08:13 97 06/18/16 08:00 81 06/18/16 08:00 98.6 81 25 189/91 97 06/18/16 07:00 97 Room Air 06/18/16 06:00 71 06/18/16 04:00 78 06/18/16 04:00 98.9 78 18 175/89 97 06/18/16 02:00 72 06/18/16 00:00 81 06/18/16 00:00 99.0 81 17 127/59 99 06/17/16 22:00 75 06/17/16 20:00 66 06/17/16 20:00 98.6 66 20 126/67 98 06/17/16 19:55 97 21 06/17/16 19:00 97 Room Air 06/17/16 18:00 74 I/O 06/17/16 06/17/16 06/17/16 06/18/16 06/18/16 06/18/16 07:00 15:00 23:00 07:00 15:00 23:00 Intake Total 312 ml 370 ml 300 ml 150 ml 720 ml Output Total 150 ml 1400 ml 350 ml 800 ml 1250 ml Balance 162 ml -1030 ml -50 ml -650 ml -530 ml Intake Oral 240 ml 120 ml 150 ml 150 ml 720 ml IV Total 72 ml 250 ml 150 ml 0 ml Output Urine Total 150 ml 1400 ml 350 ml 800 ml 1250 ml Result Diagram: 06/18/1643906/18/16439 Objective Remarks GENERAL: This is a well-nourished, well-developed patient, in no apparent distress. SKIN: No rashes, warm and dry HEAD: Atraumatic. Normocephalic. EYES: Pupils equal round and reactive. Extraocular motions intact. No scleral icterus. ENT: Nose without bleeding, or drainage, Airway patent. NECK: Trachea midline. Positive swelling and induration on the left side of the neck submandibular CARDIOVASCULAR: Regular rate and rhythm without murmurs, gallops, or rubs. RESPIRATORY: Fair air entry bilaterally. No wheezes, rales, or rhonchi. GASTROINTESTINAL: Abdomen soft, non-tender, nondistended. Positive bowel sounds MUSCULOSKELETAL: Extremities without clubbing, cyanosis, or edema. Pedal pulses appreciated NEUROLOGICAL: Awake and alert. Moves all extremity. Normal speech.no focal neurological deficit A/P Problem List: (1) Neck mass ICD Code: R22.1 Status: Acute (2) Syncope ICD Code: R55 Status: Acute (3) Atrial fibrillation with RVR ICD Code: I48.91 Status: Acute Assessment and Plan 71-year-old male with past medical history of paroxysmal atrial fibrillation, history of head and neck squamous cell cancer, new left submandibular mass FNA 10 days ago, results pending who presented to the emergency room with history of headache, syncopal episode, hypotension. Patient called EMS for severe headache and possible syncope. He denies fall and had been on couch but unable to get up. When EMS arrived it took a while for the patient open the door, he eventually crawled to the door and opened it. His blood pressure initially by EMS was less than 80. They placed 22-gauge Angiocath they started IV fluid. In the ER patient continued to be intermittently hypotensive with systolic blood pressure in 70s. Blood pressure improved with multiple fluid boluses he received 4 L of normal saline IV fluids. His heart rate was in 130s to 140s, with 20 mg of IV Cardizem push patient converted to NSR. CAT scan of his head and abdomen pelvis were essentially within normal limits. CT of the head showed right infratemporal fossa air (?this could be related to the FNA on the left neck). CAT scan of his chest showed interstitial infiltrates bilaterally, predominantly upper lobe. Dr. Gale also placed a left subclavian central line. I evaluated the patient in the ED. Patient appears with mild to moderate distress due to nausea, vomiting and anxiety. He and his noted that since last 5 days he had not been having adequate po mouth intake due to loss of appetite. He does think that he lost consciousness. I have ordered MRI and MRA of the brain and neck. Patient will be empirically covered for sepsis with Zosyn and azithromycin given pulmonary infiltrates. His lab works shows a creatinine of 1.5. His troponin was 0.12. His aPTT came back at 121 which I have repeated. Hematology consult had been requested and also will request records from Dr. Ye's office. His troponin is mildly elevated, could be demand ischemia, but will rule out NSTEMI SUBJECTIVE 06/12: Troponin increased to 5.15. patient is on IV Heparin, ASA, metoprolol and cardiology consult/Echo pending. Cr improved from 1.5 ot 0.9. UO 1.4 L in 24 hours. Hypotension resolved, in act hypertensive now. Will resume his Losartan and Norvasc CCM RECONSULT NOTE 06/15/16: Apparently, plan was for medical management of acute [place] due to coexisting recurrent self neck cancer and probable requirement for chemotherapy and surgery (With PCI long chain beamer antiplatelet will be needed) Patient developed acute change in mental status and blood pressure dropped to systolic of 50s. A Halicat was called and patient was moved to ICU. I immediately evaluated the patient. He transiently became unresponsive after 1 L fluid bolus, but blood pressure dropped to systolic of 40s again and patient became unconscious. Levophed was started without immediate response so 0.5 mg of epinephrine IV push was given with improvement in blood pressure. Patient remained unresponsive. He was intubated for airway protection. Stat cardiac enzymes, EKG, chest x-ray ordered. Stat echo and EEG ordered. All further work up is pending at this time. Discuss with Dr. Reza, if cleared by oncology he is willing to take patient for cardiac catheterization. Status post CT- guided biopsy 06/14/16 06/16/16: Serial troponins trending down. Hypotension seems to have resolved. On the vent opens eyes follows commands. CT of the head yesterday had been negative. I will discuss with Dr. Reza again regarding cardiac catheterization 06/17 No events overnight. On Cardizem drip 5mg/hr. Patient denies any CP or SOB. Afebrile. 06/18 no acute issue, heart rate control on metoprolol, patient complained of headache, no short of breath or chest pain A/P: Altered mentation/acute encephalopathy- Resolved Cardiac Syncope -CT of the head done 06/15/69 negative for acute findings. -MRI MRA of the brain, essentially negative. Syncope most likely from severe hypotension Acute respiratory failure-intubated 06/15/16- Extubated 06/16 Left submandibular mass Moderate interstitial infiltrates History of squamous cell carcinoma head and neck in 2012 -Continue with oxygen keep sat >92% -Bronchodilators -NIPPV PRN for resp distress -CT of the chest on admission shows bilateral interstitial infiltrates predominantly upper lobes. Differential includes interstitial lung disease versus atypical pneumonia -Previously treated with broad-spectrum antibiotics Shock, most likely cardiogenic -resolved NSTEMI A. fib with RVR History of chronic atrial fibrillation -Monitor HR and BP keep MAP>65mmHg -Cardiology Dr. Reza, 2 D Echo STAT 06/15. EF 60% cannot rule out wall motion abnormality -s/p cath on 06/16 PCI with bare metal stent of the ostia RCA -On ASA , Plavix, Lipitor, Prinivil 5mg daily, Lopressor 12.5mg Q12 Nausea/vomiting -Use when necessary Zofran. -Protonix for GI prophylaxis -On PO heart healthy diet Acute kidney failure -resolved Dehydration -Monitor renal function closely. Strict intake output New left submandibular mass probable recurrence of squamous cell cancer History of squamous cell cancer of the scalp and neck in 2011 -Hematology oncology Dr. Ojeda following -s/p Biopsy 06/14/16. metastatic poorly diff squamous cell ca -Monitor CBC, CMP, coags. PROPH: -Bilateral lower extremity SCDs. Lovenox. IV Protonix LINES: -Left subclavian central line placed by Dr. Gale Problem Qualifiers (1) Syncope: Qualified Code: R55 - Syncope, unspecified syncope type Saniya Fernández MD Jun 18, 2016 16:09
[2016-06-18] MEDS: ATORVASTATIN 10 MG TAB PO SCH (20:01)
[2016-06-19] VITALS (13 sets, daily range): BP systolic 110–191; BP diastolic 46–99; PULSE 68–94; RESP 15–22; TEMP 98.1–99; O2SAT 95–100
[2016-06-19] MEDS: ACETAMIN 325 MG/BUTALBITAL 50 MG/CAFFEINE 40 MG TAB PO PRN (02:08)
[2016-06-19] MEDS: METOPROLOL TARTRATE 25 MG TAB PO SCH ×3 (02:09→17:00)
[2016-06-19] MEDS: CHLORHEXIDINE GLUCONATE 2 % 1 PACK (2 CLOTHS) TOP SCH (02:09)
[2016-06-19] MEDS: ASPIRIN 81 MG CHEW TAB PO SCH (08:49)
[2016-06-19] MEDS: LISINOPRIL 5 MG TAB PO SCH (08:49)
[2016-06-19] MEDS: SODIUM CHLORIDE 0.9% FLUSH 5 ML FLUSH IVF SCH ×2 (08:49→20:14)
[2016-06-19] MEDS: CLOPIDOGREL 75 MG TAB PO SCH (08:49)
[2016-06-19] MEDS: BUDESONIDE-FORMOTEROL 80/4.5 MCG INHALER INH SCH ×2 (08:50→20:14)
[2016-06-19] MEDS: ENOXAPARIN SODIUM 40 MG/0.4 ML SYRINGE SQ SCH (08:50)
[2016-06-19] MEDS: hydrALAZINE HCL 20 MG/ML VIAL IV PUSH PRN (08:56)
[2016-06-19] MEDS: ACETAMINOPHEN 325 MG TAB PO PRN (08:56)
--- NOTE | 2016-06-19 09:27 | PD.CARD.PN ---
Subjective Subjective Remarks no complaints no overnight events back in NSR on telemetry Objective Medications Current Medications Medications (Trade) Dose Ordered Sig/Tj Route Start Time Stop Time Status Last Admin (Brethine Inj) 1 mg UNSCH PRN SQ 06/11/16 16:15 Miscellaneous Information 1 Q361D XX 06/11/16 16:30 (Chlorhexidine 2% Cloth) Taper DAILY@04 TOP 06/12/16 04:00 06/08/17 03:59 06/17/16 04:30 Chlorhexidine Gluconate 3 pack 3 pack UNSCH PRN TOP 06/11/16 16:30 Potassium Chloride 100 ml @ 50 mls/hr Q2H PRN IV 06/11/16 16:45 06/15/16 18:47 (KCl 20 Meq Premix Inj) 100 ml @ 50 mls/hr Q2H PRN IV 06/11/16 16:45 06/17/16 17:21 Potassium Chloride 40 meq 40 meq UNSCH PRN PO/TUBE 06/11/16 16:45 Potassium Chloride 100 ml @ 25 mls/hr UNSCH PRN IV 06/11/16 16:45 06/13/16 05:00 Potassium Chloride 100 ml @ 50 mls/hr Q2H PRN IV 06/11/16 16:45 06/17/16 13:00 (Magnesium Sulfate Inj/NS Inj) 100 ml @ 50 mls/hr UNSCH PRN IV 06/11/16 16:45 Magnesium Oxide 800 mg 800 mg UNSCH PRN PO 06/11/16 16:45 (Magnesium Sulfate Inj/NS Inj) 100 ml @ 50 mls/hr UNSCH PRN IV 06/11/16 16:45 Potassium Phosphate 2000 mg 2,000 mg Q4H PRN PO 06/11/16 16:45 (Sodium Phosphate Inj/NS 250 ml Inj) 250 ml @ 42 mls/hr UNSCH PRN IV 06/11/16 16:45 06/12/16 00:45 (KCl 40 Meq/30 ml Liq) 40 meq UNSCH PRN PO/TUBE 06/11/16 16:45 Potassium Phosphate 2000 mg 2,000 mg UNSCH PRN PO/TUBE 06/11/16 16:45 (Potassium Phosphate Inj/NS 250 ml Inj) 260 ml @ 42 mls/hr UNSCH PRN IV 06/11/16 16:45 (Symbicort 80-4.5 Mcg Inh) 2 puff BID INH 06/11/16 21:00 06/19/16 08:50 (Zofran Inj) 4 mg Q6HR PRN IV PUSH 06/11/16 17:30 06/14/16 22:45 (Apresoline Inj) 20 mg Q4H PRN IV PUSH 06/12/16 07:15 06/19/16 08:56 (Norvasc) 5 mg DAILY PO 06/12/16 09:00 Hold 06/15/16 09:44 (Cozaar) 100 mg DAILY PO 06/12/16 09:00 Hold 06/15/16 09:44 (Pauline 7.5-325 Mg) 1 tab Q4H PRN PO 06/12/16 11:30 Hold 06/15/16 09:58 (Peridex 0.12% Liq) 15 ml BID@08,20 MT 06/15/16 20:00 06/16/16 08:26 (NS Flush) 2 ml UNSCH PRN IVF 06/16/16 11:45 (NS Flush) 2 ml BID IVF 06/16/16 21:00 06/19/16 08:49 (Aspirin Chew) 81 mg DAILY PO 06/17/16 09:00 06/19/16 08:49 (Plavix) 75 mg DAILY PO 06/17/16 09:00 06/19/16 08:49 (Prinivil) 5 mg DAILY PO 06/17/16 09:00 06/19/16 08:49 (Lipitor) 10 mg HS PO 06/17/16 21:00 06/18/16 20:01 (Lovenox Inj) 40 mg DAILY SQ 06/17/16 09:00 06/19/16 08:50 (Tylenol) 650 mg Q6H PRN PO 06/17/16 14:00 06/19/16 08:56 (Lopressor) 25 mg Q8H PO 06/17/16 17:00 06/19/16 08:49 (Fioricet 325-50-40) 1 tab Q8H PRN PO 06/17/16 21:30 06/19/16 02:08 Vital Signs / I&O Vital Signs Date Time Temp Pulse Resp B/P Pulse Ox O2 Delivery O2 Flow Rate FiO2 06/19/16 06:00 71 06/19/16 04:07 20 06/19/16 04:00 85 06/19/16 04:00 98.4 86 22 159/83 98 06/19/16 02:00 94 06/19/16 00:00 84 06/19/16 00:00 98.4 84 19 191/99 99 06/18/16 22:00 85 06/18/16 20:00 86 06/18/16 20:00 98.6 86 19 140/73 96 06/18/16 19:00 96 Room Air 06/18/16 18:00 98 06/18/16 16:00 98 06/18/16 16:00 98.2 98 18 153/72 97 06/18/16 14:00 80 06/18/16 12:00 98.1 88 16 141/67 97 06/18/16 12:00 88 06/18/16 10:00 80 I/O 06/18/16 06/18/16 06/18/16 06/19/16 06/19/16 06/19/16 06:59 14:59 22:59 06:59 14:59 22:59 Intake Total 150 ml 720 ml Output Total 800 ml 1250 ml 300 ml 300 ml Balance -650 ml -530 ml -300 ml -300 ml Intake Oral 150 ml 720 ml IV Total 0 ml Output Urine Total 800 ml 1250 ml 300 ml 300 ml Physical Exam GENERAL: Well-nourished, well-developed patient. SKIN: Warm and dry. HEAD: Normocephalic. EYES: No scleral icterus. No injection or drainage. NECK: Supple, trachea midline. No JVD or lymphadenopathy. CARDIOVASCULAR: Regular rate and rhythm without murmurs, gallops, or rubs. RESPIRATORY: Breath sounds equal bilaterally. No accessory muscle use. GASTROINTESTINAL: Abdomen soft, non-tender, nondistended. EXTREMITIES: No cyanosis, or edema. NEUROLOGICAL: Awake, alert, and oriented x 3. Non-focal. Assessment and Plan Problem List: (1) NSTEMI (non-ST elevated myocardial infarction) Assessment and Plan: Cont rate control for afib Hematuria cleared, CHADS2 1, change ASA to 325mg PO daily Continue ASA/Plavix Encourage ambulation, OOB and incentive spirometry (2) Elevated troponin (3) Atrial fibrillation with RVR (4) Neck mass (5) Hematuria Joey Elder MD Jun 19, 2016 09:27
[2016-06-19] MEDS ORDERED: NALOXONE HCL 0.4 MG/ML AMP ONE (10:19)
--- NOTE | 2016-06-19 11:51 | HHI.CCPN ---
Subjective Remarks/Hospital Course 71-year-old male with past medical history of paroxysmal atrial fibrillation, history of head and neck squamous cell cancer, new left submandibular mass FNA 10 days ago, results pending who presented to the emergency room with history of headache, syncopal episode, hypotension. Patient called EMS for severe headache and possible syncope. He denies fall and had been on couch but unable to get up. When EMS arrived it took a while for the patient open the door, he eventually crawled to the door and opened it. His blood pressure initially by EMS was less than 80. They placed 22-gauge Angiocath they started IV fluid. In the ER patient continued to be intermittently hypotensive with systolic blood pressure in 70s. Blood pressure improved with multiple fluid boluses he received 4 L of normal saline IV fluids. His heart rate was in 130s to 140s, with 20 mg of IV Cardizem push patient converted to NSR. CAT scan of his head and abdomen pelvis were essentially within normal limits. CT of the head showed right infratemporal fossa air (?this could be related to the FNA on the left neck). CAT scan of his chest showed interstitial infiltrates bilaterally, predominantly upper lobe. Dr. Gale also placed a left subclavian central line. I evaluated the patient in the ED. Patient appears with mild to moderate distress due to nausea, vomiting and anxiety. He and his noted that since last 5 days he had not been having adequate po mouth intake due to loss of appetite. He does think that he lost consciousness. I have ordered MRI and MRA of the brain and neck. Patient will be empirically covered for sepsis with Zosyn and azithromycin given pulmonary infiltrates. His lab works shows a creatinine of 1.5. His troponin was 0.12. His aPTT came back at 121 which I have repeated. Hematology consult had been requested and also will request records from Dr. Ye's office. His troponin is mildly elevated, could be demand ischemia, but will rule out NSTEMI SUBJECTIVE 06/12: Troponin increased to 5.15. patient is on IV Heparin, ASA, metoprolol and cardiology consult/Echo pending. Cr improved from 1.5 ot 0.9. UO 1.4 L in 24 hours. Hypotension resolved, in act hypertensive now. Will resume his Losartan and Norvasc CCM RECONSULT NOTE 06/15/16: Apparently, plan was for medical management of acute [place] due to coexisting recurrent self neck cancer and probable requirement for chemotherapy and surgery (With PCI social worker school antiplatelet will be needed) Patient developed acute change in mental status and blood pressure dropped to systolic of 50s. A Halicat was called and patient was moved to ICU. I immediately evaluated the patient. He transiently became unresponsive after 1 L fluid bolus, but blood pressure dropped to systolic of 40s again and patient became unconscious. Levophed was started without immediate response so 0.5 mg of epinephrine IV push was given with improvement in blood pressure. Patient remained unresponsive. He was intubated for airway protection. Stat cardiac enzymes, EKG, chest x-ray ordered. Stat echo and EEG ordered. All further work up is pending at this time. Discuss with Dr. Reza, if cleared by oncology he is willing to take patient for cardiac catheterization. Status post CT- guided biopsy 06/14/16 06/16/16: Serial troponins trending down. Hypotension seems to have resolved. On the vent opens eyes follows commands. CT of the head yesterday had been negative. I will discuss with Dr. Reza again regarding cardiac catheterization 06/17 No events overnight. On Cardizem drip 5mg/hr. Patient denies any CP or SOB. Afebrile. [facility] RECONSULT NOTE: Patient developed similar symptoms of hypotension with systolic blood pressure in 40s and syncope. [facility] reconsulted. No arrhythmia noted. According to patient complained about left-sided headache blurred vision and then suddenly had loss of consciousness. Previous MRA was negative for vascular invasion, discussed with radiology will check CTA of the neck to rule out carotid sinus invasion with the tumor. Patient also received Narcan while unresponsive, became very agitated requiring 4 point restraints Objective Vital Signs Date Time Temp Pulse Resp B/P Pulse Ox O2 Delivery O2 Flow Rate FiO2 06/19/16 10:00 77 06/19/16 08:00 95 Room Air 06/19/16 04:07 20 06/19/16 04:00 98.4 159/83 06/17/16 19:55 21 06/16/16 13:10 4.00 Intake and Output 06/18/16 06/18/16 06/19/16 08:00 16:00 00:00 Intake Total 150 ml 720 ml Output Total 800 ml 1250 ml 300 ml Balance -650 ml -530 ml -300 ml Result Diagram: 06/18/16 0440 06/18/16 0440 Imaging Last Impressions Chest X-Ray 06/16/16 0000 Signed Impressions: Service Date/Time: Thursday, June 16, 2016 05:58 - CONCLUSION: Possible left lung base consolidation. Katlyn Owens MD Head CT 06/15/16 0000 Signed Impressions: Service Date/Time: May 18:03 - CONCLUSION: Stable appearance of the brain with no acute intracranial process to explain current clinical symptoms. Jamal Kerr MD Soft Tissue Biopsy 06/13/16 0000 Signed Impressions: Service Date/Time: Tuesday, June 14, 2016 15:14 - CONCLUSION: Uncomplicated CT guided biopsy. Tang Mckeon MD Neck Magnetic Resonance Angiography 06/11/16 0000 Signed Impressions: Service Date/Time: Saturday, June 11, 2016 17:26 - CONCLUSION: There is no hemodynamically significant of stenosis. Guillaume Mims MD FACR Head Magnetic Resonance Angiography 06/11/16 0000 Signed Impressions: Service Date/Time: Saturday, June 11, 2016 17:26 - CONCLUSION: Atherosclerotic intracranial vascular disease as described above. Guillaume Mims MD FACR CT Angiography 06/11/16 0000 Signed Impressions: Service Date/Time: Saturday, June 11, 2016 15:12 - CONCLUSION: 1. Cardiomegaly with moderate interstitial edema. 2. There is no evidence for central pulmonary emboli. 3. Marked coronary artery calcifications. 4. Prominent pulmonary arteries suggesting pulmonary artery hypertension. Guillaume Mims MD FACR Brain MRI 06/11/16 0000 Signed Impressions: Service Date/Time: Saturday, June 11, 2016 17:26 - CONCLUSION: There is no evidence for edema or infarction. Guillaume Mims MD FACR Abdomen/Pelvis CT 06/11/16 0000 Signed Impressions: Service Date/Time: Saturday, June 11, 2016 15:12 - CONCLUSION: Minimal gallbladder wall thickening. Otherwise, benign appearing gallbladder. I do not see etiology for patient's abdominal pain. Guillaume Mims MD FACR Objective Remarks GENERAL: Patient is lying in bed in in 4 point restraints but not agitated now SKIN: Warm and dry. HEAD: Normocephalic. EYES: No scleral icterus. No injection or drainage. NECK: Supple, trachea midline. No JVD or lymphadenopathy. Large indurated left- sided neck mass CARDIOVASCULAR: Regular rate and rhythm without murmurs, gallops, or rubs. RESPIRATORY: Breath sounds equal bilaterally. GASTROINTESTINAL: Abdomen soft, non-tender, nondistended. MUSCULOSKELETAL: No cyanosis, or edema. BACK: Nontender without obvious deformity. No CVA tenderness. Neuro: Awake and alert. Follows commands all extremities A/P Problem List: (1) NSTEMI (non-ST elevated myocardial infarction) ICD Code: I21.4 Status: Acute (2) Syncope ICD Code: R55 Status: Acute (3) Atrial fibrillation with RVR ICD Code: I48.91 Status: Acute (4) Hypotension ICD Code: I95.9 Status: Acute (5) Elevated troponin ICD Code: R79.89 Status: Acute (6) Probable sepsis ICD Code: A41.9 Status: Acute (7) Acute kidney failure ICD Code: N17.9 Status: Acute (8) Probable pneumonia Status: Acute (9) Headache ICD Code: R51 Status: Chronic (10) Atrial fibrillation, chronic ICD Code: I48.2 Status: Chronic Assessment and Plan NEURO: Altered mentation/acute encephalopathy- Resolved Syncope -CT of the head done 06/15/69 negative for acute findings. MRI MRA of the brain, essentially negative. Syncope most likely from severe hypotension -Discussed with radiology Dr. Mims. CT angiogram of the neck to rule out the neck mass invading carotid sinus as a cause of syncope RESP/ENT: Acute respiratory failure-intubated 06/15/16- Extubated 06/16 Left submandibular mass -biopsy shows metastatic poorly differentiated squamous cell carcinoma Moderate interstitial infiltrates History of squamous cell carcinoma head and neck in 2012 -Continue with oxygen keep sat >92% -biopsy shows metastatic poorly differentiated squamous cell carcinoma -Bronchodilators. NIPPV PRN for resp distress -CT of the chest on admission shows bilateral interstitial infiltrates predominantly upper lobes. Differential includes interstitial lung disease versus atypical pneumonia -Previously treated with broad-spectrum antibiotics CV: Shock, most likely cardiogenic, versus carotid sinus syndrome from tumor invasion NSTEMI A. fib with RVR History of chronic atrial fibrillation -Monitor HR and BP keep MAP>65mmHg. Cardiology Dr. Reza, 2 D Echo STAT 06/15. EF 60% cannot rule out wall motion abnormality -s/p cath on 06/16 PCI with bare metal stent of the ostial RCA -On ASA , Plavix, Lipitor, Lopressor 12.5mg Q12. Hold Prinivil 5mg daily GI: Nausea/vomiting -Use when necessary Zofran. -Protonix for GI prophylaxis -On PO heart healthy diet : Acute kidney failure -resolved Dehydration -Monitor renal function closely. Strict intake output ID: -All cultures negative. Monitor for signs of infection( Fever, WBC) HEME: New left submandibular mass -poorly differentiated metastatic squamous cell cancer History of squamous cell cancer of the scalp and neck in 2011 -Hematology oncology Dr. Ojeda following -s/p Biopsy 06/14/16. metastatic poorly diff squamous cell ca -Monitor CBC, CMP, coags. ENDO: -Electrolyte replacement protocol -Sliding-scale insulin if needed PROPH: -Bilateral lower extremity SCDs. Lovenox. IV Protonix LINES: -Left subclavian central line placed by Dr. Gale CCT [id number] Patient is critically ill with severe hypotension with syncope. At this time further workup is pending and will continue ICU care. Rule out tumor invading carotid sinus Discussed with radiology Dr. Walker and Guillaume Mims, and patient's Problem Qualifiers (1) Syncope: Qualified Code: R55 - Syncope, unspecified syncope type (2) Hypotension: Qualified Code: I95.9 - Hypotension, unspecified hypotension type (3) Headache: Qualified Code: R51 - Chronic intractable headache, unspecified headache type Ros Amador MD Jun 19, 2016 11:51
[2016-06-19] MEDS ORDERED: IOHEXOL 350 MG/ML 10 ML VIAL (for RAD DIAG) IV ONE (12:32)
--- NOTE | 2016-06-19 12:39 | RADRPT ---
EXAM DATE/TIME: 06/19/2016 12:00 [place] COMPARISON: CT BRAIN W/O CONTRAST, June 15, 2016, 18:03. INDICATIONS : Possible tumor invastion of carotid sinus. IV CONTRAST: 75 cc Omnipaque 350 (iohexol) IV RADIATION DOSE: 17.48 CTDIvol (mGy) MEDICAL HISTORY : Cardiovascular disease. Hypertension. SURGICAL HISTORY : None. ENCOUNTER: Initial ACUITY: 1 day PAIN SCALE: 0/10 LOCATION: neck TECHNIQUE: Volumetric scanning was performed using a multirow detector CT scanner. The data was post processed with a variety of visualization algorithms including full-volume maximum intensity projection, multip lanar sliding thin-slab reformation, curved-planar reformation, and surface-rendering techniques. Us ing automated exposure control and adjustment of the mA and/or kV according to patient size, radiatio n dose was kept as low as reasonably achievable to obtain optimal diagnostic quality images. FINDINGS: AORTIC ARCH: There is a three-vessel origin of the great vessels from the aorta. No evidence of ostial narrowing. RIGHT CAROTID: The right common carotid is widely patent. There is moderate atherosclerotic plaquing at the bifurcat ion. No hemodynamically significant stenosis is identified. The more cephalad portion of right application support intern al carotid is widely patent. The external carotid is patent. LEFT CAROTID: The common carotid is widely patent. There is a large soft tissue mass in the lateral margin the left neck which encases the distal common carotid, the bifurcation and proximal internal carotid. This re sults in only mild narrowing of the internal carotid the degree of stenosis is estimated to be in the range of 20-30%. The external carotid is patent. VERTEBRALS: The vertebral arteries have a symmetric diameter. The patient's left neck mass extends up to but does not involve the left vertebral. CT source data: There is partial visualization of the upper chest. There is abnormal soft tissue seen within the port ions of left hilum visualized. There is a partially necrotic soft tissue mass seen in the left neck m easuring at least 4.9 x 4.3 cm. This is highly suspicious for malignancy. This extends medially into and involves the parapharyngeal space, the tonsillar pillar on the left and up to the left glossotons illar sulcus. CONCLUSION: 1. There is a large soft tissue mass which encases the distal left common carotid, the bifurcation an d proximal internal carotid this results in only a mild degree of stenosis within the internal caroti d. 2. The right carotid circulation is widely patent. There is mild atherosclerotic plaquing at the bifu rcation. 3. The vertebral circulation is patent bilaterally. Abram Mims MD on June 19, 2016 at 12:33 Board Certified Radiologist. This report was verified electronically.
[2016-06-19 14:00] LABS: AUTOMATED NEUTROPHIL # 9.1 TH/MM3 (1.8-7.7); BASOPHIL % 0.4 % (0.0-2.0); EOSINOPHIL # 0.1 TH/MM3 (0-0.4); EOSINOPHIL % 0.6 % (0.0-4.0); HEMATOCRIT 35.4 % (39.0-51.0); HEMO FLAGS DIFF FINAL; LYMPH % 4.1 % (9.0-44.0); LYMPHOCYTE # 0.4 TH/MM3 (1.0-4.8); MEAN CELL VOLUME 88.1 FL (80.0-100.0); MEAN CORPUSCULAR HEMOGLOBIN 30.8 PG (27.0-34.0); NEUT % 86.9 % (16.0-70.0); PLATELET COUNT 326 TH/MM3 (150-450); RED BLOOD COUNT 4.02 MIL/MM3 (4.50-5.90); RED CELL DISTRIBUTION WIDTH 13.1 % (11.6-17.2); WHITE BLOOD COUNT 10.4 TH/MM3 (4.0-11.0)
--- NOTE | 2016-06-19 14:01 | PD.ONC.PN ---
Subjective Subjective Remarks Afebrile overnight. Patient became unresponsive earlier today. He reports he had a bad headache, then lost vision, and then became unresponsive. CT neck was obtained STAT. Now on pressor support. States he feels fine now, but still with mild headache. Objective Data Date Time Temp Pulse Resp B/P Pulse Ox O2 Delivery O2 Flow Rate FiO2 06/19/16 10:00 77 06/19/16 08:00 95 Room Air 06/19/16 08:00 82 06/19/16 06:00 71 06/19/16 04:07 20 06/19/16 04:00 85 06/19/16 04:00 98.4 86 22 159/83 98 06/19/16 02:00 94 06/19/16 00:00 84 06/19/16 00:00 98.4 84 19 191/99 99 06/18/16 22:00 85 06/18/16 20:00 86 06/18/16 20:00 98.6 86 19 140/73 96 06/18/16 19:00 96 Room Air 06/18/16 18:00 98 06/18/16 16:00 98 06/18/16 16:00 98.2 98 18 153/72 97 06/18/16 14:00 80 06/19/16 06/19/16 06/19/16 07:00 15:00 23:00 Output Total 300 ml Balance -300 ml Result Diagram: 06/18/16 0440 06/18/16 0440 Imaging Studies Last 24 hours Impressions Neck CTA 06/19/16 0000 Signed Impressions: Service Date/Time: Sunday, June 19, 2016 12:00 - CONCLUSION: 1. There is a large soft tissue mass which encases the distal left common carotid, the bifurcation and proximal internal carotid this results in only a mild degree of stenosis within the internal carotid. 2. The right carotid circulation is widely patent. There is mild atherosclerotic plaquing at the bifurcation. 3. The vertebral circulation is patent bilaterally. Abram Mims MD Administered Medications Medications (Trade) Dose Ordered Sig/Tj Route PRN Reason Start Time Stop Time Status Last Admin Dose Admin Chlorhexidine Gluconate Taper DAILY@04 TOP 06/12/16 04:00 06/08/17 03:59 06/17/16 04:30 Potassium Chloride 100 ml @ 50 mls/hr Q2H PRN IV For Potassium 2.8 - 3.2 mEq/L 06/11/16 16:45 06/15/16 18:47 Potassium Chloride 100 ml @ 50 mls/hr Q2H PRN IV For Potassium 2.8 - 3.2 mEq/L 06/11/16 16:45 06/17/16 17:21 Potassium Chloride 100 ml @ 25 mls/hr UNSCH PRN IV For Potassium 3.3 - 3.5 mEq/L 06/11/16 16:45 06/13/16 05:00 Potassium Chloride 100 ml @ 50 mls/hr Q2H PRN IV For Potassium 3.3 - 3.5 mEq/L 06/11/16 16:45 06/17/16 13:00 Sodium Phosphate/ Sodium Chloride (Sodium Phosphate Inj/NS 250 ml Inj) 250 ml @ 42 mls/hr UNSCH PRN IV For Phosphorus < 2.5 mg/dL 06/11/16 16:45 06/12/16 00:45 Budesonide/ Formoterol Fumarate (Symbicort 80-4.5 Mcg Inh) 2 puff BID INH 06/11/16 21:00 06/19/16 08:50 Ondansetron HCl (Zofran Inj) 4 mg Q6HR PRN IV PUSH vomiting/nausea 06/11/16 17:30 06/14/16 22:45 Hydralazine HCl (Apresoline Inj) 20 mg Q4H PRN IV PUSH SYS BP GREATER THAN 160 MMHG 06/12/16 07:15 06/19/16 08:56 Amlodipine Besylate (Norvasc) 5 mg DAILY PO 06/12/16 09:00 Hold 06/15/16 09:44 Losartan Potassium (Cozaar) 100 mg DAILY PO 06/12/16 09:00 Hold 06/15/16 09:44 Acetaminophen/ Hydrocodone Bitart ([place] 7.5-325 Mg) 1 tab Q4H PRN PO pain 4-10 06/12/16 11:30 Hold 06/15/16 09:58 Chlorhexidine Gluconate (Peridex 0.12% Liq) 15 ml BID@08,20 MT 06/15/16 20:00 06/16/16 08:26 IV Flush (NS Flush) 2 ml BID IVF 06/16/16 21:00 06/19/16 08:49 Clopidogrel Bisulfate (Plavix) 75 mg DAILY PO 06/17/16 09:00 06/19/16 08:49 Lisinopril (Prinivil) 5 mg DAILY PO 06/17/16 09:00 06/19/16 08:49 Atorvastatin Calcium (Lipitor) 10 mg HS PO 06/17/16 21:00 06/18/16 20:01 Enoxaparin Sodium (Lovenox Inj) 40 mg DAILY SQ 06/17/16 09:00 06/19/16 08:50 Acetaminophen (Tylenol) 650 mg Q6H PRN PO headaches, fever 06/17/16 14:00 06/19/16 08:56 Metoprolol Tartrate (Lopressor) 25 mg Q8H PO 06/17/16 17:00 06/19/16 08:49 Acetaminophen/ Butalbital/ Caffeine (Fioricet 325-50-40) 1 tab Q8H PRN PO headache 06/17/16 21:30 06/19/16 02:08 Objective Remarks GENERAL: Middle aged male, sitting up in bed in [facility]. SKIN: Warm and dry. HEAD: Normocephalic. EYES: No injection or drainage. NECK: Supple, trachea midline. CARDIOVASCULAR: +S1/S2 RESPIRATORY: anterior selby clear. GASTROINTESTINAL: Abdomen soft, non-tender, nondistended. EXTREMITIES: No cyanosis NEUROLOGICAL: awake and alert, normal speech. facial movements symmetric. moving all extremities. Assessment/Plan Problem List: (1) Squamous cell carcinoma of head and neck Status: Acute Plan: --neck mass biopsy showed poorly differentiated squamous cell carcinoma. --diagnosed with left tongue cancer and treatment with chemoradiation 2 years ago in [facility] --2 months ago noticed increased left neck swelling --CT soft tissue neck showed large retromandibular mass on left with adjacent matted jugular chain adenopathy and isolated abnormal appearing nodes in the posterior left neck. (2) Atrial fibrillation with RVR Status: Resolved Plan: -- Cardiology following -in NSR Assessment 71y/o male with history of head and neck cancer, admitted with syncope, nausea, weakness. h/o Hypertension. Atrial fibrillation. Plan 1. patient brought in names of oncologists patient saw in [facility]. I have sent records requests to patient's medical and radiation oncologist in [place]. 2. continue supportive care Attending Statement The exam, history, and the medical decision-making described in the above note were completed with the assistance of the mid-level provider. I reviewed and agree with the findings presented. I attest that I had a [id number] encounter with the patient on the same day, and personally performed and documented my assessment and findings in the medical record. Hypotensive/syncopal. requiring pressor support. Will review records from Oncologists in [facility]. Will attempt to contact by phone. Will need systemic chemotherapy once stable/would prefer to treat in the outpatient setting. Acutely ill at this time. Reviewed CTA. Mass encasing the left carotid. Colleen Dey Jun 19, 2016 14:01 Rey Ojeda MD Jun 19, 2016 22:56
[2016-06-19 14:15] LABS: ALT (GPT) 36 U/L (12-78); ANION GAP 7 MEQ/L (5-15); AST (GOT) 26 U/L (15-37); BICARBONATE 29.4 MEQ/L (21.0-32.0); BLOOD UREA NITROGEN 15 MG/DL (7-18); CHLORIDE 99 MEQ/L (98-107); GLOMERULAR FILTRATION RATE 81 ML/MIN (>89); MAGNESIUM 1.9 MG/DL (1.5-2.5); POTASSIUM 3.6 MEQ/L (3.5-5.1); SODIUM (NA) 135 MEQ/L (136-145)
[2016-06-19 14:19] LABS: ALKALINE PHOSPHATASE 71 U/L (45-117); TOTAL BILIRUBIN ADULT 0.5 MG/DL (0.2-1.0)
[2016-06-19] MEDS: CHLORHEXIDINE 0.12% (ORAL KIT) 15 ML CUP MT SCH (20:00)
[2016-06-19] MEDS: ATORVASTATIN 10 MG TAB PO SCH (20:14)
--- NOTE | 2016-06-19 23:59 | EKG ---
Date Performed: 06/16/2016 Time Performed: 09:32:20 PTAGE: 71 years EKG: Probable atrial fibrillation with uncontrolled ventricular response with PVC(s) Possible le ft ventricular hypertrophy Extensive ST-T changes may be due to hypertrophy and/or ischemia Abnormal ECG PREVIOUS TRACING : 06/15/2016 15.42 Compared to the previous tracing, previously normal Sinus r hythm with no ST/T wave changes DOCTOR: Raúl Montemayor Interpretating Date/Time 06/19/2016 23:58:54
[2016-06-20] VITALS (11 sets, daily range): BP systolic 125–190; BP diastolic 63–88; PULSE 55–88; RESP 12–14; TEMP 98.3–98.7; O2SAT 96–100
[2016-06-20] MEDS: METOPROLOL TARTRATE 25 MG TAB PO SCH ×3 (00:10→17:25)
[2016-06-20] MEDS: hydrALAZINE HCL 20 MG/ML VIAL IV PUSH PRN (00:10)
[2016-06-20] MEDS: CHLORHEXIDINE GLUCONATE 2 % 1 PACK (2 CLOTHS) TOP SCH (04:00)
[2016-06-20 06:02] LABS: HEMATOCRIT 33.4 % (39.0-51.0); MEAN CELL VOLUME 88.1 FL (80.0-100.0); MEAN CORPUSCULAR HEMOGLOBIN 30.8 PG (27.0-34.0); PLATELET COUNT 278 TH/MM3 (150-450); RED BLOOD COUNT 3.79 MIL/MM3 (4.50-5.90); RED CELL DISTRIBUTION WIDTH 13.2 % (11.6-17.2); REVIEW FLAG FINAL; WHITE BLOOD COUNT 8.4 TH/MM3 (4.0-11.0)
[2016-06-20] MEDS ORDERED: ASPIRIN EC 325 MG TABEC PO SCH (09:00)
[2016-06-20] MEDS: BUDESONIDE-FORMOTEROL 80/4.5 MCG INHALER INH SCH (09:34)
[2016-06-20] MEDS: LISINOPRIL 5 MG TAB PO SCH (09:35)
[2016-06-20] MEDS: ENOXAPARIN SODIUM 40 MG/0.4 ML SYRINGE SQ SCH (09:35)
[2016-06-20] MEDS: CLOPIDOGREL 75 MG TAB PO SCH (09:35)
[2016-06-20] MEDS: SODIUM CHLORIDE 0.9% FLUSH 5 ML FLUSH IVF SCH (09:35)
--- NOTE | 2016-06-20 09:57 | HHI.CCPN ---
Subjective Remarks/Hospital Course 71-year-old male with past medical history of paroxysmal atrial fibrillation, history of head and neck squamous cell cancer, new left submandibular mass FNA 10 days ago, results pending who presented to the emergency room with history of headache, syncopal episode, hypotension. Patient called EMS for severe headache and possible syncope. He denies fall and had been on couch but unable to get up. When EMS arrived it took a while for the patient open the door, he eventually crawled to the door and opened it. His blood pressure initially by EMS was less than 80. They placed 22-gauge Angiocath they started IV fluid. In the ER patient continued to be intermittently hypotensive with systolic blood pressure in 70s. Blood pressure improved with multiple fluid boluses he received 4 L of normal saline IV fluids. His heart rate was in 130s to 140s, with 20 mg of IV Cardizem push patient converted to NSR. CAT scan of his head and abdomen pelvis were essentially within normal limits. CT of the head showed right infratemporal fossa air (?this could be related to the FNA on the left neck). CAT scan of his chest showed interstitial infiltrates bilaterally, predominantly upper lobe. Dr. Gale also placed a left subclavian central line. I evaluated the patient in the ED. Patient appears with mild to moderate distress due to nausea, vomiting and anxiety. He and his noted that since last 5 days he had not been having adequate po mouth intake due to loss of appetite. He does think that he lost consciousness. I have ordered MRI and MRA of the brain and neck. Patient will be empirically covered for sepsis with Zosyn and azithromycin given pulmonary infiltrates. His lab works shows a creatinine of 1.5. His troponin was 0.12. His aPTT came back at 121 which I have repeated. Hematology consult had been requested and also will request records from Dr. Ye's office. His troponin is mildly elevated, could be demand ischemia, but will rule out NSTEMI SUBJECTIVE 06/12: Troponin increased to 5.15. patient is on IV Heparin, ASA, metoprolol and cardiology consult/Echo pending. Cr improved from 1.5 ot 0.9. UO 1.4 L in 24 hours. Hypotension resolved, in act hypertensive now. Will resume his Losartan and Norvasc CCM RECONSULT NOTE 06/15/16: Apparently, plan was for medical management of acute SD due to coexisting recurrent self neck cancer and probable requirement for chemotherapy and surgery (With PCI terminal system operator antiplatelet will be needed) Patient developed acute change in mental status and blood pressure dropped to systolic of 50s. A Halicat was called and patient was moved to ICU. I immediately evaluated the patient. He transiently became unresponsive after 1 L fluid bolus, but blood pressure dropped to systolic of 40s again and patient became unconscious. Levophed was started without immediate response so 0.5 mg of epinephrine IV push was given with improvement in blood pressure. Patient remained unresponsive. He was intubated for airway protection. Stat cardiac enzymes, EKG, chest x-ray ordered. Stat echo and EEG ordered. All further work up is pending at this time. Discuss with Dr. Reza, if cleared by oncology he is willing to take patient for cardiac catheterization. Status post CT- guided biopsy 06/14/16 06/16/16: Serial troponins trending down. Hypotension seems to have resolved. On the vent opens eyes follows commands. CT of the head yesterday had been negative. I will discuss with Dr. Reza again regarding cardiac catheterization 06/17 No events overnight. On Cardizem drip 5mg/hr. Patient denies any CP or SOB. Afebrile. [facility] [place]ONS[place] 06/19: Patient developed similar symptoms of hypotension with systolic blood pressure in 40s and syncope. [facility] [place]. No arrhythmia noted. According to patient complained about left-sided headache blurred vision and then suddenly had loss of consciousness. Previous MRA was negative for vascular invasion, discussed with radiology will check CTA of the neck to rule out carotid sinus invasion with the tumor. Patient also received Narcan while unresponsive, became very agitated requiring 4 point restraints 06/20: No episodes of syncope. Presentation of bradycardia hypotension and syncope, along with large neck mass consistent with carotid sinus syndrome. CT angiogram of the neck done 06/19/16 shows large soft tissue mass which encases distal wrist common carotid, the bifurcation and proximal internal carotid. D/W Dr. Ye-rigoberto recommended transfer to for surgical intervention. Awaiting vascular surgery consult from Dr. Funes. Objective Vital Signs Date Time Temp Pulse Resp B/P Pulse Ox O2 Delivery O2 Flow Rate FiO2 06/20/16 06:00 80 06/20/16 04:00 98.6 12 136/70 98 06/19/16 22:33 Nasal Cannula 4.00 06/17/16 19:55 21 Intake and Output 06/19/16 06/19/16 06/20/16 08:00 16:00 00:00 Intake Total 113 ml Output Total 300 ml 650 ml 700 ml Balance -300 ml -537 ml -700 ml Result Diagram: 06/20/16 0440 06/19/16 1300 Imaging Last Impressions Chest X-Ray 06/16/16 0000 Signed Impressions: Service Date/Time: Thursday, June 16, 2016 05:58 - CONCLUSION: Possible left lung base consolidation. Katlyn Owens MD Head CT 06/15/16 0000 Signed Impressions: Service Date/Time: May 18:03 - CONCLUSION: Stable appearance of the brain with no acute intracranial process to explain current clinical symptoms. Jamal Kerr MD Soft Tissue Biopsy 06/13/16 0000 Signed Impressions: Service Date/Time: Tuesday, June 14, 2016 15:14 - CONCLUSION: Uncomplicated CT guided biopsy. Tang Mckeon MD Neck Magnetic Resonance Angiography 06/11/16 0000 Signed Impressions: Service Date/Time: Saturday, June 11, 2016 17:26 - CONCLUSION: There is no hemodynamically significant of stenosis. Guillaume Mims MD FACR Head Magnetic Resonance Angiography 06/11/16 0000 Signed Impressions: Service Date/Time: Saturday, June 11, 2016 17:26 - CONCLUSION: Atherosclerotic intracranial vascular disease as described above. Guillaume Mims MD FACR CT Angiography 06/11/16 0000 Signed Impressions: Service Date/Time: Saturday, June 11, 2016 15:12 - CONCLUSION: 1. Cardiomegaly with moderate interstitial edema. 2. There is no evidence for central pulmonary emboli. 3. Marked coronary artery calcifications. 4. Prominent pulmonary arteries suggesting pulmonary artery hypertension. Guillaume Mims MD FACR Brain MRI 06/11/16 0000 Signed Impressions: Service Date/Time: Saturday, June 11, 2016 17:26 - CONCLUSION: There is no evidence for edema or infarction. Guillaume Mims MD FACR Abdomen/Pelvis CT 06/11/16 0000 Signed Impressions: Service Date/Time: Saturday, June 11, 2016 15:12 - CONCLUSION: Minimal gallbladder wall thickening. Otherwise, benign appearing gallbladder. I do not see etiology for patient's abdominal pain. Guillaume Mims MD FACR Objective Remarks GENERAL: Patient is lying in bed comfortable SKIN: Warm and dry. HEAD: Normocephalic. EYES: No scleral icterus. No injection or drainage. NECK: Supple, trachea midline. No JVD or lymphadenopathy. Large indurated left- sided neck mass CARDIOVASCULAR: Regular rate and rhythm without murmurs, gallops, or rubs. RESPIRATORY: Breath sounds equal bilaterally. GASTROINTESTINAL: Abdomen soft, non-tender, nondistended. MUSCULOSKELETAL: No cyanosis, or edema. BACK: Nontender without obvious deformity. No CVA tenderness. Neuro: Awake and alert. Follows commands all extremities Urinary Catheter: Yes Assessment to: Continue Vascular Central Line Catheter: Yes Assessment to: Continue A/P Problem List: (1) NSTEMI (non-ST elevated myocardial infarction) ICD Code: I21.4 Status: Acute (2) Syncope ICD Code: R55 Status: Acute (3) Atrial fibrillation with RVR ICD Code: I48.91 Status: Resolved (4) Hypotension ICD Code: I95.9 Status: Acute (5) Elevated troponin ICD Code: R79.89 Status: Acute (6) Probable sepsis ICD Code: A41.9 Status: Acute (7) Acute kidney failure ICD Code: N17.9 Status: Acute (8) Probable pneumonia Status: Acute (9) Headache ICD Code: R51 Status: Chronic (10) Atrial fibrillation, chronic ICD Code: I48.2 Status: Chronic (11) Carotid sinus syndrome ICD Code: G90.01 Status: Acute (12) Squamous cell carcinoma of head and neck ICD Code: C76.0 Status: Chronic Assessment and Plan NEURO: Syncope Probable Carotid sinus syndrome Altered mentation/acute encephalopathy- Resolved -Bradycardia hypotension and syncope, large neck mass consistent with probable carotid sinus syndrome. -CT angiogram of the neck done 06/19/16 shows large soft tissue mass which encases distal L common carotid, the bifurcation and proximal internal carotid. -D/W Dr. Ye-he recommended transfer to for surgical intervention. Awaiting vascular surgery consult from Dr. Funes. -CT of the head done 06/15/69 negative for acute findings. MRI MRA of the brain, essentially negative. Syncope most likely from severe hypotension -Discussed with radiology Dr. Mims. CT angiogram of the neck to rule out the neck mass invading carotid sinus as a cause of syncope RESP/ENT: Acute respiratory failure-intubated 06/15/16- Extubated 06/16 Left submandibular mass -biopsy shows metastatic poorly differentiated squamous cell carcinoma Moderate interstitial infiltrates History of squamous cell carcinoma head and neck in 2012 -Continue with oxygen keep sat >92% -biopsy shows metastatic poorly differentiated squamous cell carcinoma -Bronchodilators. NIPPV PRN for resp distress -CT of the chest on admission shows bilateral interstitial infiltrates predominantly upper lobes. Differential includes interstitial lung disease versus atypical pneumonia -Previously treated with broad-spectrum antibiotics CV: Syncope, probable carotid sinus syndrome NSTEMI A. fib with RVR History of chronic atrial fibrillation -Monitor HR and BP keep MAP>65mmHg. Cardiology Dr. Reza, 2 D Echo STAT 06/15. EF 60% -s/p cath on 06/16 PCI with bare metal stent of the ostial RCA -On ASA , Plavix, Lipitor, Lopressor 12.5mg Q12. Hold Prinivil 5mg daily -See neuro A/P for carotid sinus syndrome GI: Nausea/vomiting Constipation -Use when necessary Zofran. -Protonix for GI prophylaxis -On PO heart healthy diet -Initiated on bowel regimen with Dulcolax and senna, when necessary Fleet enema : Acute kidney failure -resolved Dehydration -Monitor renal function closely. Strict intake output ID: -All cultures negative. Monitor for signs of infection( Fever, WBC) HEME: New left submandibular mass -poorly differentiated metastatic squamous cell cancer History of squamous cell cancer of the scalp and neck in 2011 -Hematology oncology Dr. Ojeda following -s/p Biopsy 06/14/16. metastatic poorly diff squamous cell ca -Monitor CBC, CMP, coags. -May need surgical intervention due to carotid sinus syndrome ENDO: -Electrolyte replacement protocol -Sliding-scale insulin if needed PROPH: -Bilateral lower extremity SCDs. Lovenox. IV Protonix LINES: -Left subclavian central line placed by Dr. Gale on admission CCT 35 Patient is critically ill with severe hypotension with syncope. At this time further workup is pending and will continue ICU care. Rule out carotid sinus syndrome Discussed with vascular surgery Dr. Funes Problem Qualifiers (1) Syncope: Qualified Code: R55 - Syncope, unspecified syncope type (2) Hypotension: Qualified Code: I95.9 - Hypotension, unspecified hypotension type (3) Headache: Qualified Code: R51 - Chronic intractable headache, unspecified headache type Ros Amador MD Jun 20, 2016 09:57
[2016-06-20] MEDS ORDERED: DOCUSATE SODIUM 100 MG/10 ML UDC PO SCH (10:00)
[2016-06-20] MEDS ORDERED: SOD PHOSPHATE/SOD BIPHOSPHATE (ADULT) ENEMA 133ML PR PRN (10:00)
[2016-06-20] MEDS ORDERED: DOCUSATE SODIUM 50 MG/SENNA 8.6 MG TAB PO SCH (10:00)
--- NOTE | 2016-06-20 13:24 | PD.VS.CON ---
History of Present Illness Chief Complaint: LEFT neck mass Consult Requested by: Dr. Amador History of Present Illness 71 yo male with h/o L neck SCCa treated with chemo/XRT and then several months ago noticed a recurrent mass in the LEFT neck. He has recurrent syncopal episodes sometime associated with headache and loss of vision. He notes that on the first of these he noticed that his heart rate was in the 20s. He has no antecedent cardiovascular events but does have HTN and a-fib. He previously exercised regularly. 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 06/11/16 Nitroglycerin SL (Nitrostat SL)0.4 Mg Subl0.4 Mg SL DIRECTED PRN (CHEST PAIN ) #100 TAB.SL Ref 0 1 tablet under the tongue as needed for chest pain. Repeat every 5 minutes for a total of 3 DOSES or call 911 if NO relief. 06/11/16 Losartan 100 Mg [id number] Mg PO DAILY #30 TAB Ref 0 06/11/16 Metoprolol Succinate ER 24 HR 50 Mg Tab50 Mg PO BID #30 TAB Ref 0 06/11/16 Amlodipine 5 Mg Tab5 Mg PO DAILY #30 TAB Ref 0 06/11/16 Aspirin 81 Mg Chew81 Mg CHEW DAILY Ref 0 06/11/16 Coded Allergies: No Known Allergies (Unverified , 06/11/16) Review of Systems Eyes: COMPLAINS OF: Vision loss Ears, nose, mouth, throat: COMPLAINS OF: Throat pain Respiratory: COMPLAINS OF: Sputum production Cardiovascular: COMPLAINS OF: Syncope Musculoskeletal: COMPLAINS OF: Neck pain Physical Exam Vitals/I&O Date Time Temp Pulse Resp B/P Pulse Ox O2 Delivery O2 Flow Rate FiO2 06/20/16 12:00 82 06/20/16 10:00 74 06/20/16 09:00 96 Nasal Cannula 2.00 06/20/16 08:00 88 06/20/16 06:00 80 06/20/16 04:00 77 06/20/16 04:00 98.6 77 12 136/70 98 06/20/16 02:00 77 06/20/16 00:00 73 06/20/16 00:00 98.7 73 14 190/88 100 06/19/16 22:33 100 Nasal Cannula 4.00 06/19/16 22:00 86 06/19/16 20:00 99.0 79 15 156/81 99 06/19/16 20:00 79 06/19/16 19:00 Room Air 06/19/16 18:00 68 06/19/16 16:00 71 06/19/16 16:00 98.2 70 17 131/67 100 06/19/16 14:00 74 06/20/16 06/20/16 06/20/16 07:00 15:00 23:00 Intake Total 120 ml Output Total 250 ml Balance -130 ml Neuro: alert, oriented, no distress. ZARATE HEENT: L neck fullness and erythema c/w XRT. Heart: irreg rate, no murmur appreciated Lungs: clear bilaterally Vascular: palpable UE pulses Extremities: symmetric, full ROM Laboratory Tests Test 06/20/16 04:40 White Blood Count 8.4 Red Blood Count 3.79 Hemoglobin 11.7 Hematocrit 33.4 Mean Corpuscular Volume 88.1 Mean Corpuscular Hemoglobin 30.8 Mean Corpuscular Hemoglobin 35.0 Concent Red Cell Distribution Width 13.2 Platelet Count 278 Mean Platelet Volume 7.8 Date/Time Procedure Status Source Growth 06/15/16 16:20 Aerobic Blood Culture - Final Complete Blood Peripheral NO GROWTH IN 5 DAYS 06/15/16 16:20 Anaerobic Blood Culture - Final Complete Blood Peripheral NO GROWTH IN 5 DAYS 06/15/16 15:30 Gram Stain - Final Complete Sputum Endotracheal 06/15/16 15:30 Sputum Culture - Final Complete Sputum Endotracheal LIGHT GROWTH NORMAL RESPIRATORY WARNER Last 48 hours Impressions Neck CTA 06/19/16 0000 Signed Impressions: Service Date/Time: Sunday, June 19, 2016 12:00 - CONCLUSION: 1. There is a large soft tissue mass which encases the distal left common carotid, the bifurcation and proximal internal carotid this results in only a mild degree of stenosis within the internal carotid. 2. The right carotid circulation is widely patent. There is mild atherosclerotic plaquing at the bifurcation. 3. The vertebral circulation is patent bilaterally. Abram Mims MD Assessment and Plan Plan Recurrent SCCa of neck. I have reviewed the imaging and there does not appear to be HD significant narrowing of the ICA. However, surgical resection of the mass will require significant carotid mobilization and potentially replacement. I am delighted to help with such a case, or as I told the patient and his ex- (in the room with him), I am also happy to facilitate getting them to see Dr. Johnny Flores who is a ENT/surgical oncologist on faculty at the [facility] in [place]. I defer the decision to resect here / transfer to the ENT surgeons here. Andrew Funes MD FACS control analyst [facility] Andrew Funes MD Jun 20, 2016 13:24
--- NOTE | 2016-06-20 15:25 | PD.ONC.PN ---
Subjective Subjective Remarks Afebrile overnight. Patient being transferred to [facility] for possible resection of neck mass. No syncopal episodes today. Objective Data Date Time Temp Pulse Resp B/P Pulse Ox O2 Delivery O2 Flow Rate FiO2 06/20/16 12:00 82 06/20/16 10:00 74 06/20/16 09:00 96 Nasal Cannula 2.00 06/20/16 08:00 88 06/20/16 08:00 93 Room Air 06/20/16 06:00 80 06/20/16 04:00 77 06/20/16 04:00 98.6 77 12 136/70 98 06/20/16 02:00 77 06/20/16 00:00 73 06/20/16 00:00 98.7 73 14 190/88 100 06/19/16 22:33 100 Nasal Cannula 4.00 06/19/16 22:00 86 06/19/16 20:00 99.0 79 15 156/81 99 06/19/16 20:00 79 06/19/16 19:00 Room Air 06/19/16 18:00 68 06/19/16 16:00 71 06/19/16 16:00 98.2 70 17 131/67 100 06/20/16 06/20/16 06/20/16 07:00 15:00 23:00 Intake Total 120 ml Output Total 250 ml Balance -130 ml Result Diagram: 06/20/16 0440 06/19/16 1300 Laboratory Results Laboratory Tests Test 06/20/16 04:40 White Blood Count 8.4 TH/MM3 Red Blood Count 3.79 MIL/MM3 Hemoglobin 11.7 GM/DL Hematocrit 33.4 % Mean Corpuscular Volume 88.1 FL Mean Corpuscular Hemoglobin 30.8 PG Mean Corpuscular Hemoglobin 35.0 % Concent Red Cell Distribution Width 13.2 % Platelet Count 278 TH/MM3 Mean Platelet Volume 7.8 FL Administered Medications Medications (Trade) Dose Ordered Sig/Tj Route PRN Reason Start Time Stop Time Status Last Admin Dose Admin Chlorhexidine Gluconate Taper DAILY@04 TOP 06/12/16 04:00 06/08/17 03:59 06/17/16 04:30 Potassium Chloride 100 ml @ 50 mls/hr Q2H PRN IV For Potassium 2.8 - 3.2 mEq/L 06/11/16 16:45 06/15/16 18:47 Potassium Chloride 100 ml @ 50 mls/hr Q2H PRN IV For Potassium 2.8 - 3.2 mEq/L 06/11/16 16:45 06/17/16 17:21 Potassium Chloride 100 ml @ 25 mls/hr UNSCH PRN IV For Potassium 3.3 - 3.5 mEq/L 06/11/16 16:45 06/13/16 05:00 Potassium Chloride 100 ml @ 50 mls/hr Q2H PRN IV For Potassium 3.3 - 3.5 mEq/L 06/11/16 16:45 06/17/16 13:00 Sodium Phosphate/ Sodium Chloride (Sodium Phosphate Inj/NS 250 ml Inj) 250 ml @ 42 mls/hr UNSCH PRN IV For Phosphorus < 2.5 mg/dL 06/11/16 16:45 06/12/16 00:45 Budesonide/ Formoterol Fumarate (Symbicort 80-4.5 Mcg Inh) 2 puff BID INH 06/11/16 21:00 06/20/16 09:34 Ondansetron HCl (Zofran Inj) 4 mg Q6HR PRN IV PUSH vomiting/nausea 06/11/16 17:30 06/14/16 22:45 Hydralazine HCl (Apresoline Inj) 20 mg Q4H PRN IV PUSH SYS BP GREATER THAN 160 MMHG 06/12/16 07:15 06/20/16 00:10 Amlodipine Besylate (Norvasc) 5 mg DAILY PO 06/12/16 09:00 Hold 06/15/16 09:44 Losartan Potassium (Cozaar) 100 mg DAILY PO 06/12/16 09:00 Hold 06/15/16 09:44 Acetaminophen/ Hydrocodone Bitart ([place] 7.5-325 Mg) 1 tab Q4H PRN PO pain 4-10 06/12/16 11:30 Hold 06/15/16 09:58 Chlorhexidine Gluconate (Peridex 0.12% Liq) 15 ml BID@08,20 MT 06/15/16 20:00 06/16/16 08:26 IV Flush (NS Flush) 2 ml BID IVF 06/16/16 21:00 06/20/16 09:35 Clopidogrel Bisulfate (Plavix) 75 mg DAILY PO 06/17/16 09:00 06/20/16 09:35 Lisinopril (Prinivil) 5 mg DAILY PO 06/17/16 09:00 06/20/16 09:35 Atorvastatin Calcium (Lipitor) 10 mg HS PO 06/17/16 21:00 06/19/16 20:14 Enoxaparin Sodium (Lovenox Inj) 40 mg DAILY SQ 06/17/16 09:00 06/20/16 09:35 Acetaminophen (Tylenol) 650 mg Q6H PRN PO headaches, fever 06/17/16 14:00 06/19/16 08:56 Metoprolol Tartrate (Lopressor) 25 mg Q8H PO 06/17/16 17:00 06/20/16 09:35 Acetaminophen/ Butalbital/ Caffeine (Fioricet 325-50-40) 1 tab Q8H PRN PO headache 06/17/16 21:30 06/19/16 02:08 Aspirin (Ecotrin Ec) 325 mg DAILY PO 06/20/16 09:00 06/20/16 09:34 Docusate Sodium (Colace Liq) 100 mg Q12HR PO 06/20/16 10:00 06/20/16 10:33 Senna/Docusate Sodium (Kanchan-Colace) 1 tab BID PO 06/20/16 10:00 06/20/16 10:33 Objective Remarks GENERAL: Middle aged male, lying in bed, hard C-collar immobilizing neck. SKIN: Warm and dry. HEAD: Normocephalic. EYES: No injection or drainage. NECK: Supple, trachea midline. CARDIOVASCULAR: +S1/S2 RESPIRATORY: clear to auscultation, anterior selby. GASTROINTESTINAL: Abdomen soft, non-tender, nondistended. EXTREMITIES: No cyanosis NEUROLOGICAL: AO x 3. normal speech. moving all extremities. Assessment/Plan Problem List: (1) Squamous cell carcinoma of head and neck Status: Chronic Plan: --neck mass biopsy showed poorly differentiated squamous cell carcinoma. --diagnosed with left tongue cancer and treatment with chemoradiation 2 years ago in [facility] --2 months ago noticed increased left neck swelling --CT soft tissue neck showed large retromandibular mass on left with adjacent matted jugular chain adenopathy and isolated abnormal appearing nodes in the posterior left neck. (2) Atrial fibrillation with RVR Status: Resolved Plan: -- Cardiology following -in NSR Assessment 71y/o male with history of head and neck cancer, admitted with syncope, nausea, weakness. h/o Hypertension. Atrial fibrillation. Plan 1. supportive care 2. await transfer to [facility] Attending Statement The exam, history, and the medical decision-making described in the above note were completed with the assistance of the mid-level provider. I reviewed and agree with the findings presented. I attest that I had a [id number] encounter with the patient on the same day, and personally performed and documented my assessment and findings in the medical record. Colleen Dey Jun 20, 2016 15:25 Rey Ojeda MD Jun 20, 2016 22:05
[2016-06-20] MEDS ORDERED: METO25TA3 PO (16:26)
[2016-06-20] MEDS ORDERED: PLAV75TA29 PO (16:26)
[2016-06-20] MEDS ORDERED: Aspirin Ec PO (16:26)
[2016-06-20] MEDS ORDERED: LISI-519 PO (16:26)
[2016-06-20] MEDS ORDERED: LIPI10TA PO (16:26)
--- NOTE | 2016-06-20 16:34 | HHI.DS ---
Discharge Summary Admission Date Jun 11, 2016 at 16:26 Admitting Diagnosis hypertension, elevated troponin, A. fib with RVR (1) Carotid sinus syndrome ICD Code: G90.01 Diagnosis: Principal (2) Syncope ICD Code: R55 Diagnosis: Principal (3) NSTEMI (non-ST elevated myocardial infarction) ICD Code: I21.4 Diagnosis: Principal (4) Atrial fibrillation with RVR ICD Code: I48.91 Diagnosis: Principal (5) Left neck mass encasing left carotid artery Diagnosis: Principal (6) Squamous cell carcinoma of head and neck ICD Code: C76.0 Diagnosis: Principal (7) Neck mass ICD Code: R22.1 Diagnosis: Secondary (8) Atrial fibrillation, chronic ICD Code: I48.2 Diagnosis: Secondary Procedures Intubation Cardiac catheterization Central line placement Brief History 71-year-old male with past medical history of paroxysmal atrial fibrillation, history of head and neck squamous cell cancer, new left submandibular mass FNA 10 days ago, results pending who presented to the emergency room with history of headache, syncopal episode, hypotension. He denied fall and had been on couch but unable to get up. When EMS arrived it took a while for the patient open the door, he eventually crawled to the door and opened it. His blood pressure initially by EMS was less than 80. They placed 22-gauge Angiocath they started IV fluid. In the ER patient continued to be intermittently hypotensive with systolic blood pressure in 70s. Blood pressure improved with multiple fluid boluses he received 4 L of normal saline IV fluids. His heart rate was in 130s to 140s, with 20 mg of IV Cardizem push patient converted to NSR. CAT scan of his head and abdomen pelvis were essentially within normal limits. CT of the head showed right infratemporal fossa air (?this could be related to the FNA on the left neck). CAT scan of his chest showed interstitial infiltrates bilaterally, predominantly upper lobe. Left subclavian central line was placed. I evaluated the patient in the ED. Patient appears with mild to moderate distress due to nausea, vomiting and anxiety. He and his noted that since last 5 days he had not been having adequate po mouth intake due to loss of appetite. He does think that he lost consciousness. I have ordered MRI and MRA of the brain and neck. Patient will be empirically covered for sepsis with Zosyn and azithromycin given pulmonary infiltrates. His lab works shows a creatinine of 1.5. His troponin was 0.12. His aPTT came back at 121 which I have repeated. Hematology consult had been requested and also will request records from Dr. Ye's office. His troponin is mildly elevated, could be demand ischemia, but will rule out NSTEMI CBC/BMP: 06/20/16 0440 06/19/16 1300 Significant Findings Laboratory Tests Test 06/18/16 06/19/16 06/20/16 04:40 13:00 04:40 Red Blood Count 3.98 MIL/MM3 4.02 MIL/MM3 3.79 MIL/MM3 (4.50-5.90) (4.50-5.90) (4.50-5.90) Hemoglobin 12.1 GM/DL 12.4 GM/DL 11.7 GM/DL (13.0-17.0) (13.0-17.0) (13.0-17.0) Hematocrit 35.1 % 35.4 % 33.4 % (39.0-51.0) (39.0-51.0) (39.0-51.0) Neutrophils (%) (Auto) 73.4 % 86.9 % (16.0-70.0) (16.0-70.0) Monocytes (%) (Auto) 12.4 % (0.0-8.0) Monocytes # (Auto) 1.1 TH/MM3 (0-0.9) Calcium Level 7.8 MG/DL 8.0 MG/DL (8.5-10.1) (8.5-10.1) Lymphocytes (%) (Auto) 4.1 % (9.0-44.0) Neutrophils # (Auto) 9.1 TH/MM3 (1.8-7.7) Lymphocytes # (Auto) 0.4 TH/MM3 (1.0-4.8) Sodium Level 135 MEQ/L (136-145) Estimat Glomerular Filtration 81 ML/MIN (>89) Rate Random Glucose 136 MG/DL (74-106) Troponin I 0.18 NG/ML (0.02-0.05) Albumin 2.5 GM/DL (3.4-5.0) PE at Discharge GENERAL: This is a well-nourished, well-developed patient, in no apparent distress. SKIN: No rashes, warm and dry HEAD: Atraumatic. Normocephalic. EYES: Pupils equal round and reactive. Extraocular motions intact. No scleral icterus. ENT: Nose without bleeding, or drainage, Airway patent. NECK: Trachea midline. Positive swelling and induration on the left side of the neck submandibular CARDIOVASCULAR: Regular rate and rhythm without murmurs, gallops, or rubs. RESPIRATORY: Fair air entry bilaterally. No wheezes, rales, or rhonchi. GASTROINTESTINAL: Abdomen soft, non-tender, nondistended. Positive bowel sounds MUSCULOSKELETAL: Extremities without clubbing, cyanosis, or edema. Pedal pulses appreciated NEUROLOGICAL: Awake and alert. Moves all extremity. Normal speech.no focal neurological deficit Transfer Summary See hospital course Hospital Course 71-year-old male admitted on 06/11/16 with past medical history of paroxysmal atrial fibrillation, history of head and neck squamous cell cancer, new left submandibular mass FNA 10 days ago, who presented to the emergency room with history of headache, syncopal episode, hypotension. His blood pressure initially by EMS was less than 80. Blood pressure improved with multiple fluid boluses he received 4 L of normal saline IV fluids. His heart rate was in 130s to 140s, with 20 mg of IV Cardizem push patient converted to NSR. CAT scan of his head and abdomen pelvis were essentially within normal limits. MRI and MRA of the brain and neck was essentially unremarkable. Patient will be empirically covered for sepsis with Zosyn and azithromycin given pulmonary infiltrates. His lab works shows a creatinine of 1.5. His troponin was 0.12. Second Troponin increased to 5.15. patient is on IV Heparin, ASA, metoprolol and cardiology consulted. Initially medical management recommended by cardiology because of anticipated chemotherapy and radiation therapy.On 06/15/16 Patient developed acute change in mental status and blood pressure dropped to systolic of 50s with associated bradycardia. Patient was moved back to ICU. I immediately evaluated the patient. He transiently became unresponsive after 1 L fluid bolus, but blood pressure dropped to systolic of 40s again and patient became unconscious. Levophed was started without immediate response so 0.5 mg of epinephrine IV push was given with improvement in blood pressure. Patient remained unresponsive. He was intubated for airway protection. Stat echo and EEG ordered both were unremarkable. Patient underwent cardiac catheterization the next day with bare mental stent placed to the posterior RCA. Patient remained stable for the next 2 days but on 06/19/16 patient developed similar symptoms of hypotension with systolic blood pressure in 40s and syncope, heart rate was in 40s. According to patient complained about left-sided headache blurred vision and then suddenly had loss of consciousness. Previous MRA was negative for vascular invasion, discussed with radiology will check CTA of the neck to rule out carotid sinus invasion with the tumor. Presentation of bradycardia hypotension and syncope, along with large neck mass consistent with carotid sinus syndrome. CT angiogram of the neck done 06/19/16 shows large soft tissue mass which encases distal Left common carotid, the bifurcation and proximal internal carotid. D/W Dr. Ye-he recommended transfer to for surgical intervention. Vascular surgery consulted and discussed with Dr. Funes. ENT at [place] will not be able to do resection of the neck mass as per my discussion with Dr. Ye, ENT. Dr. Funes discussed with head and neck surgeon at [facility] Dr. Johnny Hernandez, who graciously accepted the patient. Patient will be discharged to his service for probable surgical intervention (Also please note that an ultrasound-guided biopsy of the left neck mass on 06/14 showed poorly differentiated metastatic squamous cell carcinoma) Pt Condition on Discharge: Stable Discharge Disposition: Disch to Another Hospital Discharge Instructions DIET: Follow Instructions for: Heart Healthy Diet Activities you can perform: Continue Bedrest Ros Amador MD Jun 20, 2016 16:34
== END 2016-06-20 19:30 | disposition short-term general hospital (02) | DRG 853 ==
LOC: NEPE 13:09 → NEDA 16:26 → HIME 20:40 → HCIS 06-14 16:16 → HIMN 06-15 14:01
PROVIDERS: ADMIT Hospitalist; ATTEND Hospitalist
PROC: 02HV33Z Insertion of Infusion Device into Superior Vena Cava, Percutaneous Approach (ICD-10-PCS; 2016-06-11)
PROC: 0JB43ZX Excision of Right Neck Subcutaneous Tissue and Fascia, Percutaneous Approach, Diagnostic (ICD-10-PCS; 2016-06-14)
PROC: 5A1935Z Respiratory Ventilation, Less than 24 Consecutive Hours (ICD-10-PCS; 2016-06-15)
PROC: 0BH17EZ Insertion of Endotracheal Airway into Trachea, Via Natural or Artificial Opening (ICD-10-PCS; 2016-06-15)
PROC: 4A023N7 Measurement of Cardiac Sampling and Pressure, Left Heart, Percutaneous Approach (ICD-10-PCS; 2016-06-16)
PROC: B2111ZZ Fluoroscopy of Multiple Coronary Arteries using Low Osmolar Contrast (ICD-10-PCS; 2016-06-16)
PROC: 02703DZ Dilation of Coronary Artery, One Artery with Intraluminal Device, Percutaneous Approach (ICD-10-PCS; principal; 2016-06-16 09:45)
DX: A41.9 Sepsis, unspecified organism (principal); I21.4 Non-ST elevation (NSTEMI) myocardial infarction; J96.00 Acute respiratory failure, unspecified whether with hypoxia or hypercapnia; R57.0 Cardiogenic shock; G93.40 Encephalopathy, unspecified; N17.9 Acute kidney failure, unspecified; I48.0 Paroxysmal atrial fibrillation; C79.89 Secondary malignant neoplasm of other specified sites; R63.0 Anorexia; R00.1 Bradycardia, unspecified; I10 Essential (primary) hypertension; E86.0 Dehydration; G90.01 Carotid sinus syncope; E87.6 Hypokalemia; R11.2 Nausea with vomiting, unspecified; R73.9 Hyperglycemia, unspecified; J45.909 Unspecified asthma, uncomplicated; M19.90 Unspecified osteoarthritis, unspecified site; R31.0 Gross hematuria; I25.10 Atherosclerotic heart disease of native coronary artery without angina pectoris; F41.9 Anxiety disorder, unspecified; K59.00 Constipation, unspecified; Z23 Encounter for immunization; Z79.82 Long term (current) use of aspirin; Z78.1 Physical restraint status; Z92.21 Personal history of antineoplastic chemotherapy; Z92.3 Personal history of irradiation; Z85.828 Personal history of other malignant neoplasm of skin; Z87.891 Personal history of nicotine dependence; Z85.810 Personal history of malignant neoplasm of tongue
CPT/HCPCS: 20206; 31500; 36556; 36600; 51702; 70450; 70498; 70544; 70548; 70551; 71010; 71275; 74177; 77012; 80048; 80053; 80307; 81001; 82550; 82805; 83605; 83735; 83880; 84100; 84132; 84484; 85025; 85027; 85610; 85730; 87040; 87070; 87077; 87086; 87205; 87449; 87641; 87804; 88112; 88305; 88341; 88342; 90732; 93005; 93306; 93308; 93454; 94002; 94003; 94150; 95819; 96360; 96374; 99152; 99292; A9579; C1725; C1760; C1769; C1876; C1887; C1893; C9113; G0269; J0171; J0360; J0456; J1100; J1644; J1650; J2060; J2250; J2310; J2405; J2543; J3010; J3370; J3475; J3480; J7030; J7050; L0150; L0172; Q9967

== ENCOUNTER 2016-08-14 13:22 | Emergency (ER) | payer MEDICARE, OTHER ==
[~2016-08-14] VITALS: Ht 188 cm; Wt 80.0 kg
[~2016-08-14 13:22] MED LIST: ADVA100A INH; AMLO5TAB2 PO; ASPI81CH CHEW; Aspirin Ec PO; LIPI10TA PO; LISI-519 PO; LOSA100T PO; METO25TA3 PO; METO50TA11 PO; NITR0.4S SL; PLAV75TA29 PO
[2016-08-14 13:54] VITALS: BP 102/57; PULSE 64; RESP 18; TEMP 97.7; O2SAT 92
[2016-08-14] MEDS ORDERED: SODIUM CHLOR 0.9% 1000 ML INJ 1,000 ML IV SCH (14:14)
--- NOTE | 2016-08-14 14:16 | PD ---
HPI Chief Complaint: General Weakness Time Seen by Provider: 14:16 Travel History International Travel<30 days: No Contact w/Intl Traveler<30days: No Traveled to known affect area: No History of Present Illness HPI 71-year-old male with a history of paroxysmal atrial fibrillation, metastatic squamous cell carcinoma of the head and neck, carotid sinus syndrome is brought to the emergency department for evaluation of generalized weakness, nausea, vomiting and hypotension. The patient states that he was at his doctor's office today when the symptoms began. He made this appointment today so that he could discuss with his primary care doctor the dry nonproductive cough with subjective fever daily he has had for the past 4 weeks and the pain he has had for the past 5 days. He states that while at his doctor's office he became weak feeling as though he was going to pass out and then experienced nausea with about 6-7 episodes of nonbloody nonbilious emesis. He denies chest pain, shortness of breath, difficulty breathing, abdominal pain, diarrhea, constipation, numbness or tingling. He was given IV Zofran and fluids on route by EMS which has improved his nausea and vomiting. Per EMS the patient's systolic blood pressure was in the 70s. The patient was recently admitted to our hospital for similar events and was transferred out to [facility] in [place]. Since then he has been receiving chemotherapy Tarceva and infusions of Keytruda every 3 weeks. The patient states that he has had significant reduction of tumor size, it later than 80% reduction in size with the Keytruda. His oncologist is Dr. Whitmore at [facility]. PCP Dr. Ayden Chambers. FORMERLY [facility], [facility] Past Medical History Arthritis: No Asthma: Yes Atrial Fibrillation: Yes Autoimmune Disease: No Heart Rhythm Problems: Yes (Afib) Cancer: Yes (NECK ) Cardiovascular Problems: Yes High Cholesterol: Yes Chemotherapy: Yes (2012) Chest Pain: No Congestive Heart Failure: No COPD: No Cerebrovascular Accident: No Endocrine: No GERD: No Genitourinary: No Headaches: Yes (developed 6 weeks ago) Hiatal Hernia: Yes Hypertension: Yes Immune Disorder: No Kidney Stones: No Musculoskeletal: Yes Psychiatric: No Reproductive: No Respiratory: Yes Migraines: Yes (developed 6 weeks ago) Radiation Therapy: Yes (2012) Renal Failure: No Sleep Apnea: No Ulcer: No Past Surgical History Joint Replacement: Yes (2 titanium screws in left foot) Other Surgery: Yes Social History Alcohol Use: No Tobacco Use: No Substance Use: No Allergies-Medications (Allergen,Severity, Reaction): Coded Allergies: No Known Allergies (Unverified , 08/14/16) Reported Meds & Prescriptions Reported Meds & Active Scripts Active Lipitor (Atorvastatin Calcium) 10 Mg Tab 10 Mg PO HS Reported Zofran (Ondansetron HCl) 4 Mg Tab 4 Mg PO BID PRN Aspirin EC (Aspirin) 81 Mg Tabdr 162 Mg PO DAILY Lyrica (Pregabalin) 100 Mg Cap 100 Mg PO BID Advair Diskus Inh (Fluticasone-Salmeterol Inh) 100-50 Mcg/Blist Aer 1 Puff INH DAILY Rinse mouth after use. Losartan (Losartan Potassium) 100 Mg Tab 100 Mg PO DAILY Metoprolol Succinate ER 24 HR (Metoprolol Succinate) 50 Mg Tab 50 Mg PO BID Amlodipine (Amlodipine Besylate) 5 Mg Tab 5 Mg PO DAILY Review of Systems Except as stated in HPI: all other systems reviewed are Neg Physical Exam Narrative GENERAL: Well-nourished and well-developed male patient in no acute distress/ SKIN: Warm and dry. HEAD: Normocephalic and atraumatic. EYES: No injection, drainage, or hyphema noted. PERRLA. EOMI. ENT: No nasal drainage noted. Oropharynx is clear. NECK: Supple and the trachea is midline. CARDIOVASCULAR: Regular rate and rhythm. RESPIRATORY: Rhonchi bilaterally. Breath sounds are equal bilaterally. No accessory muscle use, wheezing, or crackles. GASTROINTESTINAL: Abdomen is soft, non-tender, and nondistended. MUSCULOSKELETAL: No obvious deformities, swelling, cyanosis, or ecchymosis is present throughout the upper and lower extremities. Patient has full range of motion without any signs of neurovascular compromise. NEUROLOGICAL: Awake, alert, and oriented. Normal speech and gait. Cranial nerves are grossly intact. Data Data Last Documented VS Vital Signs Date Time Temp Pulse Resp B/P Pulse Ox O2 Delivery O2 Flow Rate FiO2 08/14/16 15:32 97 Nasal Cannula 2 08/14/16 14:06 65 18 08/14/16 13:54 97.7 102/57 Orders Electrocardiogram (08/14/16 ) Complete Blood Count With Diff (08/14/16 14:14) Comprehensive Metabolic Panel (08/14/16 14:14) Prothrombin Time / Inr (Pt) (08/14/16 14:14) Act Partial Throm Time (Ptt) (08/14/16 14:14) Lactic Acid Sepsis Protocol (08/14/16 14:14) Lipase (08/14/16 14:14) Ckmb (Isoenzyme) Profile (08/14/16 14:14) Troponin I (08/14/16 14:14) Urinalysis - C+S If Indicated (08/14/16 14:14) Blood Culture (08/14/16 14:14) Chest, Single Ap (08/14/16 14:14) Ecg Monitoring (08/14/16 14:14) Iv Access Insert/Monitor (08/14/16 14:14) Oximetry (08/14/16 14:14) Oxygen Administration (08/14/16 14:14) Sodium Chlor 0.9% 1000 Ml Inj (Ns 1000 M (08/14/16 14:14) Troponin I (08/14/16 16:09) Labs Laboratory Tests Test 08/14/16 08/14/16 08/14/16 08/14/16 14:25 14:30 16:30 18:07 Lactic Acid Level 1.2 mmol/L White Blood Count 8.3 TH/MM3 Red Blood Count 3.37 MIL/MM3 Hemoglobin 10.0 GM/DL Hematocrit 30.7 % Mean Corpuscular Volume 91.2 FL Mean Corpuscular Hemoglobin 29.8 PG Mean Corpuscular Hemoglobin 32.7 % Concent Red Cell Distribution Width 16.4 % Platelet Count 296 TH/MM3 Mean Platelet Volume 7.5 FL Neutrophils (%) (Auto) 72.7 % Lymphocytes (%) (Auto) 8.7 % Monocytes (%) (Auto) 13.6 % Eosinophils (%) (Auto) 4.1 % Basophils (%) (Auto) 0.9 % Neutrophils # (Auto) 6.0 TH/MM3 Lymphocytes # (Auto) 0.7 TH/MM3 Monocytes # (Auto) 1.1 TH/MM3 Eosinophils # (Auto) 0.3 TH/MM3 Basophils # (Auto) 0.1 TH/MM3 CBC Comment DIFF FINAL Differential Comment Prothrombin Time 10.9 SEC Prothromb Time International 1.0 RATIO Ratio Activated Partial 32.1 SEC Thromboplast Time Sodium Level 135 MEQ/L Potassium Level 4.1 MEQ/L Chloride Level 100 MEQ/L Carbon Dioxide Level 29.3 MEQ/L Anion Gap 6 MEQ/L Blood Urea Nitrogen 20 MG/DL Creatinine 1.00 MG/DL Estimat Glomerular Filtration 74 ML/MIN Rate Random Glucose 102 MG/DL Calcium Level 7.9 MG/DL Total Bilirubin 0.4 MG/DL Aspartate Amino Transf 30 U/L (AST/SGOT) Alanine Aminotransferase 36 U/L (ALT/SGPT) Alkaline Phosphatase 68 U/L Total Creatine Kinase 41 U/L Troponin I 0.02 NG/ML 0.02 NG/ML Total Protein 6.5 GM/DL Albumin 2.5 GM/DL Lipase 356 U/L Urine Color YELLOW Urine Turbidity CLEAR Urine pH 7.0 Urine Specific [place] 1.013 Urine Protein NEG mg/dL Urine Glucose (UA) NEG mg/dL Urine Ketones NEG mg/dL Urine Occult Blood NEG Urine Nitrite NEG Urine Bilirubin NEG Urine Urobilinogen LESS THAN 2.0 MG/DL Urine Leukocyte Esterase NEG Urine RBC LESS THAN 1 /hpf Urine WBC LESS THAN 1 /hpf Urine Mucus FEW /lpf Microscopic Urinalysis Comment CATH-CULT NOT IND MDM Medical Decision Making Medical Screen Exam Complete: Yes Emergency Medical Condition: Yes Differential Diagnosis Sepsis versus pneumonia versus adverse medication reaction versus carotid sinus syndrome versus dehydration Narrative Course 71-year-old male is brought to the emergency department by EMS for evaluation of generalized weakness, nausea, vomiting and hypotension. Patient is afebrile. His blood pressure is 102/57, per EMS initially systolic in the 70s. Oxygen saturation is around 90% on room air, he has rhonchi noted. Patient placed on nasal cannula. IV access is obtained, labs been drawn and sent. Patient placed on telemetry and O2 monitoring. IV fluids administered. [facility], I did review these records. It seems that he is in fact on the Tarceva and receiving the keytruda and has had greater than 80% reduction in size after one cycle, apparently the chemotherapy was initiated as a palliative treatment option as his prognosis was poor. He has been following up in clinic once weekly with his oncologist. EKG shows sinus rhythm with no acute ST elevations or depressions. CBC shows mild anemia but otherwise unremarkable. CMP is unremarkable. Lactic acid is 1.2. Troponin is 0.02. Repeat troponin at 2 hour alli is still 0.02. Urinalysis shows few mucus, otherwise unremarkable. Patient reassessed after IV fluids and Zofran and reports complete resolution of symptoms. States that he is feeling much better. Patient is offered observation but reports that he feels well and would like to go home. Therefore patient will be discharged home with return precautions. I discussed the case with my attending physician Dr. Bhat who is aware of the patients history, physical examination findings, and treatment plan. Diagnosis Primary Impression: Nausea & vomiting Qualified Code: R11.2 - Non-intractable vomiting with nausea, unspecified vomiting type Additional Impression: Weakness Referrals: Primary Care Physician Patient Instructions: Acute Nausea and Vomiting (ED), General Instructions, Weakness (ED) Additional Instructions: Follow-up with your Primary Care Physician. Return to the ED for any acute worsening of symptoms. Med/Other Pt SpecificInfo: No Change to Meds Disposition: 01 DISCHARGE HOME Condition: Stable Nadya Bowie Aug 14, 2016 14:16
--- NOTE | 2016-08-14 15:05 | RADRPT ---
EXAM DATE/TIME: 08/14/2016 14:33 [facility] COMPARISON: CHEST SINGLE AP, June 16, 2016, 5:58. INDICATIONS : Shortness of breath. MEDICAL HISTORY : None. SURGICAL HISTORY : None. ENCOUNTER: Initial ACUITY: 1 day PAIN SCORE: 0/10 LOCATION: Bilateral chest FINDINGS: A single view of the chest demonstrates improving aeration in the lung bases with resolving effusions . Minimal atelectasis above the left hemidiaphragm. Heart size is normal. Right IJ power port cathete r is identified with the tip projecting over the central venous system osseous structures are intact. CONCLUSION: 1. Improving aeration in the lung bases with resolving effusions. Minimal persistent atelectasis on t he left. 2. Right IJ [id number] catheter. Jamal Kerr MD on August 14, 2016 at 15:01 Board Certified Radiologist. This report was verified electronically.
[2016-08-14] MEDS ORDERED: LYRI100C PO (15:12)
[2016-08-14 15:18] LABS: BASOPHIL # 0.1 TH/MM3 (0-0.2); BASOPHIL % 0.9 % (0.0-2.0); EOSINOPHIL # 0.3 TH/MM3 (0-0.4); EOSINOPHIL % 4.1 % (0.0-4.0); HEMATOCRIT 30.7 % (39.0-51.0); HEMO FLAGS DIFF FINAL; LYMPH % 8.7 % (9.0-44.0); LYMPHOCYTE # 0.7 TH/MM3 (1.0-4.8); MEAN CELL VOLUME 91.2 FL (80.0-100.0); MEAN CORPUSCULAR HEMOGLOBIN 29.8 PG (27.0-34.0); MEAN CORPUSCULAR HGB CONC 32.7 % (32.0-36.0); MONO % 13.6 % (0.0-8.0); NEUT % 72.7 % (16.0-70.0); PLATELET COUNT 296 TH/MM3 (150-450); RED BLOOD COUNT 3.37 MIL/MM3 (4.50-5.90); RED CELL DISTRIBUTION WIDTH 16.4 % (11.6-17.2); WHITE BLOOD COUNT 8.3 TH/MM3 (4.0-11.0)
[2016-08-14] MEDS ORDERED: ASPI81TA11 PO (15:18)
[2016-08-14] MEDS ORDERED: ZOFR4TAB PO (15:19)
[2016-08-14 15:22] LABS: APTT (PATIENT) 32.1 SEC (24.3-30.1); PROTHROMBIN TIME - PATIENT 10.9 SEC (9.8-11.6)
[2016-08-14 15:25] LABS: ANION GAP 6 MEQ/L (5-15); AST (GOT) 30 U/L (15-37); BICARBONATE 29.3 MEQ/L (21.0-32.0); BLOOD UREA NITROGEN 20 MG/DL (7-18); CHLORIDE 100 MEQ/L (98-107); GLOMERULAR FILTRATION RATE 74 ML/MIN (>89); POTASSIUM 4.1 MEQ/L (3.5-5.1); SODIUM (NA) 135 MEQ/L (136-145)
[2016-08-14 15:30] LABS: ALKALINE PHOSPHATASE 68 U/L (45-117); ALT (GPT) 36 U/L (12-78); TOTAL BILIRUBIN ADULT 0.4 MG/DL (0.2-1.0)
[2016-08-14 15:32] VITALS: O2SAT 98
[2016-08-14 15:32] LABS: CREATINE KINASE 41 U/L (39-308)
[2016-08-14 18:26] LABS: BLOOD, URINE NEG (NEG); COMMENT (UR) CATH-CULT NOT IND; CULTURE IF INDICATED CATH CULTURE NOT IND; GLUCOSE,URINE NEG (NEG); KETONE, URINE NEG (NEG); MUCUS URINE FEW /lpf (OCC); NITRITE,URINE NEG (NEG); URINE COLOR YELLOW (YELLW/STRAW)
--- NOTE | 2016-08-15 10:22 | EKG ---
Date Performed: 08/14/2016 Time Performed: 14:03:15 PTAGE: 71 years EKG: Sinus rhythm WITH OCCASIONAL SUPRAVENTRICULAR PREMATURE COMPLEXES PROLONGED QT INTERVAL ABNORMAL ECG PREVIOUS TRACING : 06/16/2016 09.32 DOCTOR: Joey Elder Interpretating Date/Time 08/15/2016 10:19:22
== END 2016-08-14 19:28 | disposition home or self-care (01) ==
LOC: NEPC 13:22
DX: R11.2 Nausea with vomiting, unspecified (principal); I48.0 Paroxysmal atrial fibrillation; C79.89 Secondary malignant neoplasm of other specified sites
CPT/HCPCS: 71010; 80053; 81001; 82550; 83605; 83690; 84484; 85025; 85610; 85730; 87040; 93005; 99285; J7030

== ENCOUNTER 2016-09-04 13:10 | Observation (INO) | payer OTHER ==
[~2016-09-04] VITALS: Ht 188 cm; Wt 70.0 kg
[~2016-09-04 13:10] MED LIST changes: -ASPI81CH CHEW; +ASPI81TA11 PO; -Aspirin Ec PO; -LISI-519 PO; +LYRI100C PO; -METO25TA3 PO; -NITR0.4S SL; -PLAV75TA29 PO; +ZOFR4TAB PO
[2016-09-04 13:51] VITALS: BP 95/49; PULSE 67; RESP 18; TEMP 98.3; O2SAT 100
--- NOTE | 2016-09-04 13:51 | PD ---
HPI Chief Complaint: Abnormal Results Time Seen by Provider: 13:51 Travel History International Travel<30 days: No Contact w/Intl Traveler<30days: No History of Present Illness HPI 71-year-old male with history of squamous cell carcinoma of the head and neck, HTN, paroxysmal A. fib, carotid sinus syndrome presents to the ED via EMS for evaluation of low blood pressures. Patient states that he was feeling well this morning. His was attempting to help him hydrate when he had a moment of unresponsiveness. Paramedics measured BP 50/34 in route. On arrival the patient is alert and oriented, no somatic complaints. He states he is being treated for his head and neck cancer at [facility]. He endorses intermittent waves of weakness which he cannot correlate to any particular event. He denies headache, dizziness, chest pain, palpitations, shortness of breath, abdominal pain, nausea, vomiting, melena, hematochezia, dysuria, back pain, numbness, tingling, weakness, limitations to range of motion of the extremities. He endorses approximate 30 pound weight loss over the last 2 months. He takes metoprolol 3 times a day and losartan daily. The patient's arrives and states that she felt as if the patient were a little more somnolent than usual, she took his blood pressure and it was 70/40. She states that she elevated his feet before calling emergency services. She endorses "a few" episodes of the patient "passing out " momentarily. Patient was discharged from [facility] yesterday. PFSH Past Medical History Arthritis: No Asthma: Yes Atrial Fibrillation: Yes Autoimmune Disease: No Heart Rhythm Problems: Yes (Afib) Cancer: Yes (NECK ) Cardiovascular Problems: Yes High Cholesterol: Yes Chemotherapy: Yes (2012) Chest Pain: No Congestive Heart Failure: No COPD: No Cerebrovascular Accident: No Endocrine: No GERD: No Genitourinary: No Headaches: Yes (developed 6 weeks ago) Hiatal Hernia: Yes Hypertension: Yes Immune Disorder: No Kidney Stones: No Musculoskeletal: Yes Psychiatric: No Reproductive: No Respiratory: Yes Migraines: Yes (developed 6 weeks ago) Radiation Therapy: Yes (2012) Renal Failure: No Sleep Apnea: No Ulcer: No Past Surgical History Joint Replacement: Yes (2 titanium screws in left foot) Other Surgery: Yes Social History Alcohol Use: No Tobacco Use: No Substance Use: No Allergies-Medications (Allergen,Severity, Reaction): Coded Allergies: No Known Allergies (Unverified , 08/14/16) Reported Meds & Prescriptions Reported Meds & Active Scripts Active Lipitor (Atorvastatin Calcium) 10 Mg Tab 10 Mg PO HS Reported Zofran (Ondansetron HCl) 4 Mg Tab 4 Mg PO BID PRN Aspirin EC (Aspirin) 81 Mg Tabdr 162 Mg PO DAILY Lyrica (Pregabalin) 100 Mg Cap 100 Mg PO BID Advair Diskus Inh (Fluticasone-Salmeterol Inh) 100-50 Mcg/Blist Aer 1 Puff INH DAILY Rinse mouth after use. Losartan (Losartan Potassium) 100 Mg Tab 100 Mg PO DAILY Metoprolol Succinate ER 24 HR (Metoprolol Succinate) 50 Mg Tab 50 Mg PO BID Amlodipine (Amlodipine Besylate) 5 Mg Tab 5 Mg PO DAILY Review of Systems Except as stated in HPI: all other systems reviewed are Neg Physical Exam Narrative GENERAL: Well-nourished, well-developed cachectic male, alert, oriented, in no acute distress. SKIN: Focused skin assessment warm/dry. There is a dressing in place over the left neck and lower jaw. There is a 4-5 cm SCC mass of the underlying area with a moderate amount of drainage. HEAD: Normocephalic. EYES: No scleral icterus. No injection or drainage. NECK: Supple, trachea midline. No JVD or lymphadenopathy. CARDIOVASCULAR: Regular rate and rhythm without murmurs, gallops, or rubs. 2+ DP and radial pulses bilaterally. RESPIRATORY: Breath sounds clear and equal bilaterally. No accessory muscle use. GASTROINTESTINAL: Abdomen soft, non-tender, nondistended. Active bowel sounds. MUSCULOSKELETAL: No cyanosis, or edema. NEUROLOGICAL: Awake and alert. Cranial nerves II through XII intact. Motor and sensory grossly within normal limits. Five out of 5 muscle strength in all muscle groups. Normal speech. BACK: Nontender without obvious deformity. No CVA tenderness. Data Data Last Documented VS Vital Signs Date Time Temp Pulse Resp B/P Pulse Ox O2 Delivery O2 Flow Rate FiO2 09/04/16 17:17 75 18 154/81 99 Room Air 09/04/16 13:51 98.3 Orders Electrocardiogram (09/04/16 13:53) Prothrombin Time / Inr (Pt) (09/04/16 13:53) Act Partial Throm Time (Ptt) (09/04/16 13:53) Complete Blood Count With Diff (09/04/16 13:53) Comprehensive Metabolic Panel (09/04/16 13:53) Urinalysis - C+S If Indicated (09/04/16 13:53) Chest, Single Ap (09/04/16 13:53) Ecg Monitoring (09/04/16 13:53) Iv Access Insert/Monitor (09/04/16 13:53) Oximetry (09/04/16 13:53) Sodium Chloride 0.9% Flush (Ns Flush) (09/04/16 14:00) Sodium Chlor 0.9% 1000 Ml Inj (Ns 1000 M (09/04/16 14:00) Ckmb (Isoenzyme) Profile (09/04/16 15:06) Troponin I (09/04/16 15:06) Ondansetron Inj (Zofran Inj) (09/04/16 16:00) Urine Culture (09/04/16 15:22) Calcium Gluconate Inj (Calcium Gluconate (09/04/16 16:45) Labs Laboratory Tests Test 09/04/16 09/04/16 14:27 15:22 White Blood Count 15.7 TH/MM3 Red Blood Count 3.57 MIL/MM3 Hemoglobin 10.5 GM/DL Hematocrit 31.2 % Mean Corpuscular Volume 87.5 FL Mean Corpuscular Hemoglobin 29.3 PG Mean Corpuscular Hemoglobin 33.5 % Concent Red Cell Distribution Width 15.0 % Platelet Count 443 TH/MM3 Mean Platelet Volume 7.1 FL Neutrophils (%) (Auto) 88.9 % Lymphocytes (%) (Auto) 2.4 % Monocytes (%) (Auto) 7.8 % Eosinophils (%) (Auto) 0.3 % Basophils (%) (Auto) 0.6 % Neutrophils # (Auto) 14.0 TH/MM3 Lymphocytes # (Auto) 0.4 TH/MM3 Monocytes # (Auto) 1.2 TH/MM3 Eosinophils # (Auto) 0.0 TH/MM3 Basophils # (Auto) 0.1 TH/MM3 CBC Comment DIFF FINAL Differential Comment Prothrombin Time 12.0 SEC Prothromb Time International 1.1 RATIO Ratio Activated Partial 36.1 SEC Thromboplast Time Sodium Level 135 MEQ/L Potassium Level 3.5 MEQ/L Chloride Level 99 MEQ/L Carbon Dioxide Level 27.9 MEQ/L Anion Gap 8 MEQ/L Blood Urea Nitrogen 19 MG/DL Creatinine 1.19 MG/DL Estimat Glomerular Filtration 61 ML/MIN Rate Random Glucose 108 MG/DL Calcium Level 7.7 MG/DL Total Bilirubin 0.4 MG/DL Aspartate Amino Transf 28 U/L (AST/SGOT) Alanine Aminotransferase 17 U/L (ALT/SGPT) Alkaline Phosphatase 73 U/L Total Creatine Kinase 44 U/L Troponin I 0.02 NG/ML Total Protein 5.9 GM/DL Albumin 2.1 GM/DL Urine Color YELLOW Urine Turbidity CLEAR Urine pH 6.0 Urine Specific [place] 1.017 Urine Protein TRACE mg/dL Urine Glucose (UA) NEG mg/dL Urine Ketones NEG mg/dL Urine Occult Blood NEG Urine Nitrite NEG Urine Bilirubin NEG Urine Urobilinogen LESS THAN 2.0 MG/DL Urine Leukocyte Esterase NEG Urine RBC LESS THAN 1 /hpf Urine WBC 4 /hpf Urine Squamous Epithelial <1 /hpf Cells Urine Bacteria RARE /hpf Urine Hyaline Casts 5 /lpf Urine Mucus FEW /lpf Microscopic Urinalysis Comment CATH-CULTURE IND MDM Medical Decision Making Medical Screen Exam Complete: Yes Emergency Medical Condition: Yes Medical Record Reviewed: Yes Differential Diagnosis carotid sinus syndrome versus dehydration versus anemia versus Narrative Course 71-year-old male with history of squamous cell carcinoma of the head and neck, HTN, paroxysmal A. fib, carotid sinus syndrome presents to the ED via EMS for evaluation of low blood pressures. Patient states that he was feeling well this morning. His endorses BP of 70/40 with "a few episodes of passing out " momentarily. Paramedics measured BP 50/34 in route. On arrival the patient is alert and oriented, no somatic complaints. He states he is being treated for his head and neck cancer at [facility]. He endorses intermittent waves of weakness which he cannot correlate to any particular event. He denies headache , dizziness, chest pain, palpitations, shortness of breath, abdominal pain, nausea, vomiting, melena, hematochezia, dysuria, back pain, numbness, tingling, weakness, limitations to range of motion of the extremities. He endorses approximate 30 pound weight loss over the last 2 months. He takes metoprolol 3 times a day and losartan daily. Patient was discharged from [facility] yesterday. Vitals reviewed. BP 94/49. Patient A and O on presentation. There is a dressing in place over the left lower jaw and neck. Chest CTAB, abdomen soft, nontender, no CVA tenderness, no weakness of the extremities. He was placed on continuous monitoring. IV 2 established tablets, 2 L normal saline bolus administered. CBC: WBC 15.7. 88.9% neutrophils Hemoglobin 10.5. COAGS INR 1.1. CMP: BUN 19, creatinine 1.19. Calcium 7.7 CARDIAC ENZYMES: negative x 1 CXR: Left basilar atelectasis. EKG: Rate 77, sinus rhythm. Normal intervals. Normal axis. Q waves in V1/V2. Reviewed by Dr. Montemayor. UA: Rare bacteria. Culture indicated. Review of the patients medical record reveals no previous history of leukocytosis. I spoke with the physician who treated the patient at [facility] Dr. Waddell (cell [phone]). He feels that the elevated white count is likely secondary to stress. He states that the patient underwent embolization of the mass while being treated at [facility]. He states that the patient has intermittent tachycardia as well as labile blood pressure due to compression of the carotid bulb secondary to the tumor. He does states that the patient lives alone but was instructed to arrange home health care/rehabilitation/hospice care. We'll admit the patient for obs, arrange home health. I spoke with Dr. Varghese who agrees to send this patient to the medical service. Please see medicine notes for disposition. Diagnosis Primary Impression: Neutrophilic leukocytosis Additional Impressions: Syncope Qualified Code: R55 - Syncope, unspecified syncope type Hypotension Qualified Code: I95.9 - Hypotension, unspecified hypotension type History of head and neck cancer Reina Gutiérrez Sep 04, 2016 13:51
[2016-09-04] MEDS ORDERED: SODIUM CHLOR 0.9% 1000 ML INJ 1,000 ML IV ONE (14:00)
--- NOTE | 2016-09-04 14:31 | RADRPT ---
EXAM DATE/TIME: 09/04/2016 13:59 [facility] COMPARISON: CHEST SINGLE AP, August 14, 2016, 14:33. INDICATIONS : Cough 3-4 weeks, weakness, asthma. MEDICAL HISTORY : Myocardial infarction. CA left cheek. SURGICAL HISTORY : Coronary artery stent. Infusaport ENCOUNTER: Initial ACUITY: 3 weeks PAIN SCORE: 0/10 LOCATION: Bilateral chest FINDINGS: Cardiomegaly. Left basilar atelectasis. Right-sided portacatheter is present. No consolidation or eff usion. Osseous structures are intact. CONCLUSION: Left basilar atelectasis. Barrington Tse MD on September 04, 2016 at 14:29 Board Certified Radiologist. This report was verified electronically.
[2016-09-04 14:40] VITALS: RESP 18; O2SAT 98
[2016-09-04 14:59] LABS: BASOPHIL # 0.1 TH/MM3 (0-0.2); BASOPHIL % 0.6 % (0.0-2.0); EOSINOPHIL % 0.3 % (0.0-4.0); HEMATOCRIT 31.2 % (39.0-51.0); HEMO FLAGS DIFF FINAL; LYMPH % 2.4 % (9.0-44.0); LYMPHOCYTE # 0.4 TH/MM3 (1.0-4.8); MEAN CELL VOLUME 87.5 FL (80.0-100.0); MEAN CORPUSCULAR HEMOGLOBIN 29.3 PG (27.0-34.0); MEAN CORPUSCULAR HGB CONC 33.5 % (32.0-36.0); MONO % 7.8 % (0.0-8.0); NEUT % 88.9 % (16.0-70.0); PLATELET COUNT 443 TH/MM3 (150-450); RED BLOOD COUNT 3.57 MIL/MM3 (4.50-5.90); WHITE BLOOD COUNT 15.7 TH/MM3 (4.0-11.0)
[2016-09-04 15:08] LABS: APTT (PATIENT) 36.1 SEC (24.3-30.1); INTERNATIONAL NORMALIZED RATIO 1.1 RATIO
[2016-09-04 15:23] VITALS: BP 147/75; PULSE 81; RESP 18; O2SAT 99
[2016-09-04 15:34] LABS: ALKALINE PHOSPHATASE 73 U/L (45-117); TOTAL BILIRUBIN ADULT 0.4 MG/DL (0.2-1.0)
[2016-09-04 15:39] LABS: ALT (GPT) 17 U/L (12-78); ANION GAP 8 MEQ/L (5-15); AST (GOT) 28 U/L (15-37); BICARBONATE 27.9 MEQ/L (21.0-32.0); BLOOD UREA NITROGEN 19 MG/DL (7-18); CHLORIDE 99 MEQ/L (98-107); GLOMERULAR FILTRATION RATE 61 ML/MIN (>89); SODIUM (NA) 135 MEQ/L (136-145)
[2016-09-04 15:40] LABS: POTASSIUM 3.5 MEQ/L (3.5-5.1)
[2016-09-04] MEDS ORDERED: ONDANSETRON HCL 4 MG/2 ML VIAL IV PUSH ONE (16:00)
[2016-09-04 16:19] LABS: BACTERIA, URINE RARE /hpf; BLOOD, URINE NEG (NEG); GLUCOSE,URINE NEG (NEG); HYALINE CAST, URINE 5 /lpf (RARE); KETONE, URINE NEG (NEG); MUCUS URINE FEW /lpf (OCC); NITRITE,URINE NEG (NEG); SQUAMOUS EPITHELIAL CELL URINE <1 /hpf (0-5); URINE COLOR YELLOW (YELLW/STRAW)
[2016-09-04 16:20] LABS: COMMENT (UR) CATH-CULTURE IND; CULTURE IF INDICATED CATH CULTURE IND
[2016-09-04] MEDS ORDERED: CALCIUM GLUCONATE 10% 1 GM/10 ML VIAL IV PUSH ONE (16:45)
[2016-09-04 17:17] VITALS: BP 154/81; PULSE 75; RESP 18; O2SAT 99
[2016-09-04] MEDS: SODIUM CHLOR 0.9% 1000 ML INJ 1,000 ML IV SCH (18:00)
--- NOTE | 2016-09-04 18:17 | HHI.HP ---
[facility] Primary [facility] Physician Non-Staff Admission Diagnosis leukocytosis, syncope, head and neck cancer Diagnoses: (1) Squamous cell carcinoma of head and neck Diagnosis: Principal (2) Hypotension Diagnosis: Principal Chief Complaint: low blood pressure Travel History International Travel<30 Days: No Contact w/Intl Traveler <30 Da: No Traveled to Known Affected Are: No History of Present Illness patient is a 71 y/o male with squamous cell carcinoma of the neck, CAD, hypertension,atrial fibrillation who was brought to ER with low blood pressure. he was just discharge from [facility] after he went through embolization of the left neck mass due to excessive bleeding. he says that he was fine till this morning when he started to feel dizzy and according to the family he was somewhat confused and incoherent. his blood pressures was checked at home and when it was noticed that his BP was going down he was brought to ER. his blood pressure improved after the IV fluid that he received in ER. he denies any chest pain, sob or abdominal pain. Review of Systems Constitutional: COMPLAINS OF: Dizziness, DENIES: Fever, Weight loss, Chills, Night Sweats Eyes: DENIES: Blurred vision, Diplopia, Vision loss, Double Vision Ears, nose, mouth, throat: DENIES: Tinnitus, Vertigo, Throat pain, Epistaxis Respiratory: DENIES: Apneas, Cough, Snoring, Wheezing, Hemoptysis, Sputum production, Shortness of breath Cardiovascular: DENIES: Chest pain, Palpitations, Syncope, Dyspnea on Exertion , PND, Lower Extremity Edema, Orthopnea, Claudication Gastrointestinal: DENIES: Abdominal pain, Black stools, Bloody stools, Constipation, Diarrhea, Nausea, Vomiting, Difficulty Swallowing, Anorexia Genitourinary: DENIES: Urinary frequency, Urgency, Hematuria, Dysuria Musculoskeletal: DENIES: Joint pain, Muscle aches, Stiffness, Joint Swelling Integumentary: DENIES: Rash Neurologic: DENIES: Abnormal gait, Headache, Localized weakness, Paresthesias, Seizures, Speech Problems, Tremor, Poor Balance Psychiatric: COMPLAINS OF: Confusion, DENIES: Anxiety, Mood changes, Depression, Hallucinations, Agitation, Suicidal Ideation, Homicidal Ideation, Delusions Past Family Social History Past Medical History a-fib CAD hypertension squamous cell carcinoma of the neck Past Surgical History cardiac stent placement recent embolization of the neck mass Reported Medications Lipitor (Atorvastatin Calcium) 10 Mg Tab 10 Mg PO HS Zofran (Ondansetron HCl) 4 Mg Tab 4 Mg PO BID PRN Aspirin EC (Aspirin) 81 Mg Tabdr 162 Mg PO DAILY Lyrica (Pregabalin) 100 Mg Cap 100 Mg PO BID Advair Diskus Inh (Fluticasone-Salmeterol Inh) 100-50 Mcg/Blist Aer 1 Puff INH DAILY Rinse mouth after use. Losartan (Losartan Potassium) 100 Mg Tab 100 Mg PO DAILY Metoprolol Succinate ER 24 HR (Metoprolol Succinate) 50 Mg Tab 50 Mg PO BID Amlodipine (Amlodipine Besylate) 5 Mg Tab 5 Mg PO DAILY Allergies: Coded Allergies: No Known Allergies (Unverified , 08/14/16) Active Ordered Medications Current Medications Sodium Chloride 2 ml 2 ml UNSCH PRN IVF FLUSH AFTER USING IV ACCESS; Start 03/13 at 14:00 Sodium Chloride (NS 1000 ml Inj) 1,000 ml @ 999 mls/hr BOLUS ONCE IV Last administered on 09/04/16 14:00; Start 09/04/16 at 14:00; Stop 09/04/16 at 15:00 ; Status DC Ondansetron HCl (Zofran Inj) 8 mg ONCE ONCE IV PUSH Last administered on 16:01; Start 09/04/16 at 16:00; Stop 09/04/16 at 16:01; Status DC Calcium Gluconate 1 gm 1 gm ONCE ONCE IV PUSH Last administered on 09/04/16 16:45; Start 09/04/16 at 16:45; Stop 09/04/16 at 16:46; Status DC Sodium Chloride (NS 1000 ml Inj) 1,000 ml @ 100 mls/hr Q10H IV ; Start at 18:00 Aspirin (Ecotrin Ec) 162 mg DAILY PO ; Start 09/05/16 at 09:00 Atorvastatin Calcium (Lipitor) 10 mg HS PO ; Start 09/04/16 at 21:00 Pregabalin (Lyrica) 100 mg BID PO ; Start 09/04/16 at 21:00 Non-Formulary Medication 1 puff DAILY INH AST; Start 09/05/16 at 09:00; Status UNV Budesonide/ Formoterol Fumarate (Symbicort 80-4.5 Mcg Inh) 2 puff DAILY INH ; Start 09/05/16 at 09:00 Social History doesn't smoke/ doesn't drink. Physical Exam Vital Signs Vital Signs Date Time Temp Pulse Resp B/P Pulse Ox O2 Delivery O2 Flow Rate FiO2 09/04/16 17:17 75 18 154/81 99 Room Air 09/04/16 15:23 81 18 147/75 99 Room Air 09/04/16 14:40 18 98 Room Air 09/04/16 13:51 98.3 67 18 95/49 100 Room Air 09/04/16 13:51 74 18 Room Air Physical Exam GENERAL: This is a well-nourished, well-developed patient, in no apparent distress. SKIN: left neck covered with clean dressing. HEAD: Atraumatic. Normocephalic. No temporal or scalp tenderness. EYES: Pupils equal round and reactive. Extraocular motions intact. No scleral icterus. No injection or drainage. ENT: Nose without bleeding, purulent drainage or septal hematoma. Throat without erythema, tonsillar hypertrophy or exudate. Uvula midline. Airway patent. NECK: Trachea midline. No JVD or lymphadenopathy. Supple, nontender, no meningeal signs. CARDIOVASCULAR: Regular rate and rhythm without murmurs, gallops, or rubs. RESPIRATORY: Clear to auscultation. Breath sounds equal bilaterally. No wheezes , rales, or rhonchi. GASTROINTESTINAL: Abdomen soft, non-tender, nondistended. No hepato-splenomegaly , or palpable masses. No guarding. MUSCULOSKELETAL: Extremities without clubbing, cyanosis, or edema. No joint tenderness, effusion, or edema noted. No calf tenderness. Negative Homans sign bilaterally. NEUROLOGICAL: Awake and alert. Cranial nerves II through XII intact. Motor and sensory grossly within normal limits. Five out of 5 muscle strength in all muscle groups. Normal speech. Laboratory Laboratory Tests Test 09/04/16 09/04/16 14:27 15:22 White Blood Count 15.7 Red Blood Count 3.57 Hemoglobin 10.5 Hematocrit 31.2 Mean Corpuscular Volume 87.5 Mean Corpuscular Hemoglobin 29.3 Mean Corpuscular Hemoglobin 33.5 Concent Red Cell Distribution Width 15.0 Platelet Count 443 Mean Platelet Volume 7.1 Neutrophils (%) (Auto) 88.9 Lymphocytes (%) (Auto) 2.4 Monocytes (%) (Auto) 7.8 Eosinophils (%) (Auto) 0.3 Basophils (%) (Auto) 0.6 Neutrophils # (Auto) 14.0 Lymphocytes # (Auto) 0.4 Monocytes # (Auto) 1.2 Eosinophils # (Auto) 0.0 Basophils # (Auto) 0.1 CBC Comment DIFF FINAL Differential Comment Prothrombin Time 12.0 Prothromb Time International 1.1 Ratio Activated Partial 36.1 Thromboplast Time Sodium Level 135 Potassium Level 3.5 Chloride Level 99 Carbon Dioxide Level 27.9 Anion Gap 8 Blood Urea Nitrogen 19 Creatinine 1.19 Estimat Glomerular Filtration 61 Rate Random Glucose 108 Calcium Level 7.7 Total Bilirubin 0.4 Aspartate Amino Transf 28 (AST/SGOT) Alanine Aminotransferase 17 (ALT/SGPT) Alkaline Phosphatase 73 Total Creatine Kinase 44 Troponin I 0.02 Total Protein 5.9 Albumin 2.1 Urine Color YELLOW Urine Turbidity CLEAR Urine pH 6.0 Urine Specific [place] 1.017 Urine Protein TRACE Urine Glucose (UA) NEG Urine Ketones NEG Urine Occult Blood NEG Urine Nitrite NEG Urine Bilirubin NEG Urine Urobilinogen LESS THAN 2.0 Urine Leukocyte Esterase NEG Urine RBC LESS THAN 1 Urine WBC 4 Urine Squamous Epithelial <1 Cells Urine Bacteria RARE Urine Hyaline Casts 5 Urine Mucus FEW Microscopic Urinalysis Comment CATH-CULTURE IND Date/Time Procedure Status Source Growth 09/04/16 15:22 Urine Culture Received Urine Catheterized Urine Pending Result Diagram: 09/04/16 1427 09/04/16 1427 Imaging Last Impressions Chest X-Ray 09/04/16 1353 Signed Impressions: Service Date/Time: Sunday, September 04, 2016 13:59 - CONCLUSION: Left basilar atelectasis. Barrington Tse MD Assessment and Plan Assessment and Plan A/P - hypotension- transient; improved after IV hydration; will hold BP meds for now and continue to monitor -left neck squamous cell carcinoma- s/p recent embolization due to excessive bleeding- this was done at [facility]- -leukocytosis- likely reactive- will monitor temps- CBC in am. -CAD- s/p stent placement; resume aspirin and statin; will resume BB in am if BP remains stable. -history of hypertension; hold BP meds for now- as noted above. -atrial fibrillation- resume BB soon as noted above. -DVT prophylaxis with SCD's -DNR status per my discussion with the patient. -hospice consult as per the patient's request. Discussed Condition With the patient , his family and ER physician. Problem Qualifiers (1) Hypotension: Qualified Code: I95.9 - Hypotension, unspecified hypotension type Vanessa Varghese MD Sep 04, 2016 18:17
[2016-09-04 20:51] VITALS: BP 147/76; PULSE 98; RESP 20; TEMP 97.7; O2SAT 95
[2016-09-04] MEDS: ATORVASTATIN 10 MG TAB PO SCH (21:00)
[2016-09-04] MEDS: PREGABALIN 100 MG CAP PO SCH (21:41)
[2016-09-04 23:59] VITALS: BP 183/88; PULSE 82; RESP 19; TEMP 98; O2SAT 95
[2016-09-05] VITALS (8 sets, daily range): BP systolic 110–182; BP diastolic 51–97; PULSE 72–114; RESP 18–22; TEMP 98.1–99.6; O2SAT 95–96
[2016-09-05] MEDS: ONDANSETRON HCL 4 MG/2 ML VIAL IV PUSH PRN ×4 (02:43→22:29)
[2016-09-05] MEDS: SODIUM CHLORIDE 0.9% FLUSH 10 ML FLUSH IVF PRN ×2 (02:43→22:28)
[2016-09-05] MEDS: SODIUM CHLOR 0.9% 1000 ML INJ 1,000 ML IV SCH ×3 (04:00→20:52)
[2016-09-05 07:52] LABS: AUTOMATED NEUTROPHIL # 14.1 TH/MM3 (1.8-7.7); BASOPHIL % 0.3 % (0.0-2.0); EOSINOPHIL % 0.2 % (0.0-4.0); HEMATOCRIT 32.4 % (39.0-51.0); HEMO FLAGS DIFF FINAL; LYMPH % 2.6 % (9.0-44.0); LYMPHOCYTE # 0.4 TH/MM3 (1.0-4.8); MEAN CELL VOLUME 88.2 FL (80.0-100.0); MEAN CORPUSCULAR HEMOGLOBIN 30.1 PG (27.0-34.0); MEAN CORPUSCULAR HGB CONC 34.1 % (32.0-36.0); MONO % 8.4 % (0.0-8.0); NEUT % 88.5 % (16.0-70.0); PLATELET COUNT 462 TH/MM3 (150-450); RED BLOOD COUNT 3.67 MIL/MM3 (4.50-5.90); RED CELL DISTRIBUTION WIDTH 14.7 % (11.6-17.2)
--- NOTE | 2016-09-05 07:59 | HHI.PR ---
Subjective Remarks resting comfortably with no distress. has mild low back pain. otherwise no other complaints. Objective Vitals Vital Signs Date Time Temp Pulse Resp B/P Pulse Ox O2 Delivery O2 Flow Rate FiO2 09/05/16 05:13 142/70 09/05/16 04:49 99.6 114 20 182/97 95 09/04/16 23:59 98.0 82 19 183/88 95 09/04/16 21:01 09/04/16 20:51 97.7 98 20 147/76 95 09/04/16 17:17 75 18 154/81 99 Room Air 09/04/16 15:23 81 18 147/75 99 Room Air 09/04/16 14:40 18 98 Room Air 09/04/16 13:51 98.3 67 18 95/49 100 Room Air 09/04/16 13:51 74 18 Room Air I/O 09/04/16 09/04/16 09/04/16 09/05/16 09/05/16 09/05/16 07:00 15:00 23:00 07:00 15:00 23:00 Intake Total 321 ml Output Total 800 ml Balance 321 ml -800 ml Intake Oral 221 ml IV Total 100 ml Output Urine Total 800 ml Result Diagram: 09/04/16 1427 09/04/16 1427 Imaging Last Impressions Chest X-Ray 09/04/16 1353 Signed Impressions: Service Date/Time: Sunday, September 04, 2016 13:59 - CONCLUSION: Left basilar atelectasis. Barrington sTe MD Objective Remarks GENERAL: This is a well-nourished, well-developed patient, in no apparent distress. Neck; left neck covered with clean dressing. CARDIOVASCULAR: Regular rate and regular rhythm without murmurs, gallops, or rubs. RESPIRATORY: Clear to auscultation. Breath sounds equal bilaterally. No wheezes , rales, or rhonchi. GASTROINTESTINAL: Abdomen soft, non-tender, nondistended. Normal, active bowel sounds MUSCULOSKELETAL: Extremities without clubbing, cyanosis, or edema. NEURO: Alert & Oriented x4 to person, place, time, situation. Moves all ext x4 Procedures none Medications and IVs Current Medications Sodium Chloride 2 ml 2 ml UNSCH PRN IVF FLUSH AFTER USING IV ACCESS Last administered on 09/05/16t 02:43; Start 09/04/16 at 14:00 Sodium Chloride (NS 1000 ml Inj) 1,000 ml @ 999 mls/hr BOLUS ONCE IV Last administered on 09/04/16 14:00; Start 09/04/16 at 14:00; Stop 09/04/16 at 15:00 ; Status DC Ondansetron HCl (Zofran Inj) 8 mg ONCE ONCE IV PUSH Last administered on 16:01; Start 09/04/16 at 16:00; Stop 09/04/16 at 16:01; Status DC Calcium Gluconate 1 gm 1 gm ONCE ONCE IV PUSH Last administered on 09/04/16 16:45; Start 09/04/16 at 16:45; Stop 09/04/16 at 16:46; Status DC Sodium Chloride (NS 1000 ml Inj) 1,000 ml @ 100 mls/hr Q10H IV Last administered on 09/05/16 07:29; Start 09/04/16 at 18:00 Aspirin (Ecotrin Ec) 162 mg DAILY PO ; Start 09/05/16 at 09:00 Atorvastatin Calcium (Lipitor) 10 mg HS PO ; Start 09/04/16 at 21:00 Pregabalin (Lyrica) 100 mg BID PO Last administered on 09/04/16 21:41; Start 09/04/16 at 21:00 Non-Formulary Medication 1 puff DAILY INH AST; Start 09/05/16 at 09:00; Status UNV Budesonide/ Formoterol Fumarate (Symbicort 80-4.5 Mcg Inh) 2 puff DAILY INH ; Start 09/05/16 at 09:00 Ondansetron HCl (Zofran Odt) 4 mg Q6H PRN PO NAUSEA OR VOMITING; Start at 02:45 Ondansetron HCl (Zofran Inj) 4 mg Q6H PRN IV PUSH NAUSEA OR VOMITING Last administered on 09/05/16 07:45; Start 09/05/16 at 02:45 A/P Assessment and Plan A/P - hypotension- transient;resolved -left neck squamous cell carcinoma- s/p recent embolization due to excessive bleeding- this was done at [facility]- -leukocytosis- likely reactive- will monitor temps- CBC today pending. -CAD- s/p stent placement; resumed aspirin and statin; resume BB today. -history of hypertension;resume home meds. -atrial fibrillation- resume BB soon as noted above. -DVT prophylaxis with SCD's -DNR status per my discussion with the patient. -hospice consult as per the patient's request. Discharge Planning possible dc home later today- awaiting hospice and case management consults. Vanessa Varghese MD Sep 05, 2016 07:59
[2016-09-05] MEDS ORDERED: SIMETHICONE 80 MG CHEWABLE TAB CHEW ONE (08:00)
[2016-09-05] MEDS: LOSARTAN 50 MG TAB PO SCH (08:49)
[2016-09-05] MEDS: ASPIRIN EC 81 MG TABEC PO SCH (08:49)
[2016-09-05] MEDS: METOPROLOL SUCCINATE 50 MG EXTENDED RELEASE TAB PO SCH ×2 (08:49→20:52)
[2016-09-05] MEDS: PREGABALIN 100 MG CAP PO SCH ×2 (08:49→20:52)
[2016-09-05] MEDS: BUDESONIDE-FORMOTEROL 80/4.5 MCG INHALER INH SCH (08:49)
[2016-09-05] MEDS ORDERED: NON-FORMULARY DRUG (Fluticasone-Salmeterol Inh (Advair Diskus Inh) 1 PUFF) INH SCH (09:00)
[2016-09-05] MEDS: ACETAMINOPHEN 325 MG TAB PO PRN (10:43)
--- NOTE | 2016-09-05 11:46 | EKG ---
Date Performed: 09/04/2016 Time Performed: 15:01:40 PTAGE: 71 years EKG: Sinus rhythm WITH MARKED SINUS ARRHYTHMIA MINIMAL VOLTAGE CRITERIA FOR LVH, CONSIDER NORMAL VARIANT SEPTAL MYOCAR DIAL INFARCTION ABNORMAL ECG PREVIOUS TRACING : 08/14/2016 14.03 DOCTOR: Joey Elder Interpretating Date/Time 09/05/2016 11:41:05
--- NOTE | 2016-09-05 19:30 | HHI.FF ---
Face to Face Verification Diagnosis: (1) Squamous cell carcinoma of head and neck Physical Therapy Order: Evaluate and Treat Home Health Nursing Order: Medical education Signs/symptoms of disease process Wound care and dressing changes Nursing assessment with vital signs I have seen patient Yuan Mcclelland on 09/05/16. My clinical findings support the need for the requested home health care services because: Ltd mobility - disease progression I certify that my clinical findings support that this patient is homebound because: Unsteady gait/balance Vanessa Varghese MD Sep 05, 2016 19:30
[2016-09-05] MEDS: ATORVASTATIN 10 MG TAB PO SCH (20:52)
[2016-09-06 01:14] VITALS: BP 140/90; PULSE 104; RESP 20; TEMP 97.5
[2016-09-06 04:14] VITALS: BP 177/81; PULSE 95; RESP 20; TEMP 97.6; O2SAT 96
[2016-09-06] MEDS: SODIUM CHLORIDE 0.9% FLUSH 10 ML FLUSH IVF PRN ×2 (06:00→21:16)
[2016-09-06] MEDS: ONDANSETRON HCL 4 MG/2 ML VIAL IV PUSH PRN ×2 (06:00→12:16)
[2016-09-06] MEDS: SODIUM CHLOR 0.9% 1000 ML INJ 1,000 ML IV SCH ×2 (06:03→21:18)
--- NOTE | 2016-09-06 07:50 | HHI.PR ---
Subjective Remarks resting comfortably with no distress. denies pain or sob or dizziness. no fever. d/w the RN and no acute issues over night. Objective Vitals Vital Signs Date Time Temp Pulse Resp B/P Pulse Ox O2 Delivery O2 Flow Rate FiO2 09/06/16 04:14 97.6 95 20 177/81 96 09/06/16 01:14 97.5 104 20 140/90 09/05/16 19:19 98.1 85 19 139/71 95 09/05/16 15:53 98.8 90 18 135/63 96 09/05/16 11:02 99.0 72 20 119/62 96 Manual Cuff/Auscultation 09/05/16 10:23 72 20 110/51 96 09/05/16 08:58 95 09/05/16 08:52 99.3 110 20 123/68 I/O 09/05/16 09/05/16 09/05/16 09/06/16 09/06/16 09/06/16 07:00 15:00 23:00 07:00 15:00 23:00 Output Total 800 ml 800 ml Balance -800 ml -800 ml Output Urine Total 800 ml 800 ml Result Diagram: 09/05/16 0715 09/04/16 1427 Imaging Last Impressions Chest X-Ray 09/04/16 1353 Signed Impressions: Service Date/Time: Sunday, September 04, 2016 13:59 - CONCLUSION: Left basilar atelectasis. Barrington Tse MD Objective Remarks GENERAL: This is a well-nourished, well-developed patient, in no apparent distress. Neck; left neck covered with clean dressing. CARDIOVASCULAR: Regular rate and regular rhythm without murmurs, gallops, or rubs. RESPIRATORY: Clear to auscultation. Breath sounds equal bilaterally. No wheezes , rales, or rhonchi. GASTROINTESTINAL: Abdomen soft, non-tender, nondistended. Normal, active bowel sounds MUSCULOSKELETAL: Extremities without clubbing, cyanosis, or edema. NEURO: Alert & Oriented x4 to person, place, time, situation. Moves all ext x4 Procedures none Medications and IVs Current Medications Sodium Chloride 2 ml 2 ml UNSCH PRN IVF FLUSH AFTER USING IV ACCESS Last administered on 09/06/16t 06:00; Start 09/04/16 at 14:00 Sodium Chloride (NS 1000 ml Inj) 1,000 ml @ 999 mls/hr BOLUS ONCE IV Last administered on 09/04/16 14:00; Start 09/04/16 at 14:00; Stop 09/04/16 at 15:00 ; Status DC Ondansetron HCl (Zofran Inj) 8 mg ONCE ONCE IV PUSH Last administered on 16:01; Start 09/04/16 at 16:00; Stop 09/04/16 at 16:01; Status DC Calcium Gluconate 1 gm 1 gm ONCE ONCE IV PUSH Last administered on 09/04/16 16:45; Start 09/04/16 at 16:45; Stop 09/04/16 at 16:46; Status DC Sodium Chloride (NS 1000 ml Inj) 1,000 ml @ 100 mls/hr Q10H IV Last administered on 09/06/16 06:03; Start 09/04/16 at 18:00 Aspirin (Ecotrin Ec) 162 mg DAILY PO Last administered on 09/05/16 08:49; Start 09/05/16 at 09:00 Atorvastatin Calcium (Lipitor) 10 mg HS PO Last administered on 09/05/16 20:52 ; Start 09/04/16 at 21:00 Pregabalin (Lyrica) 100 mg BID PO Last administered on 09/05/16 20:52; Start 09/04/16 at 21:00 Non-Formulary Medication 1 puff DAILY INH AST; Start 09/05/16 at 09:00; Status UNV Budesonide/ Formoterol Fumarate (Symbicort 80-4.5 Mcg Inh) 2 puff DAILY INH Last administered on 09/05/16 08:49; Start 09/05/16 at 09:00 Ondansetron HCl (Zofran Odt) 4 mg Q6H PRN PO NAUSEA OR VOMITING; Start at 02:45 Ondansetron HCl (Zofran Inj) 4 mg Q6H PRN IV PUSH NAUSEA OR VOMITING Last administered on 09/06/16 06:00; Start 09/05/16 at 02:45 Simethicone (Mylicon Chew) 80 mg ONCE ONCE CHEW Last administered on 09:50; Start 09/05/16 at 08:00; Stop 09/05/16 at 08:05; Status DC Losartan Potassium (Cozaar) 100 mg DAILY PO Last administered on 09/05/16 08: 49; Start 09/05/16 at 09:00 Metoprolol Succinate (Toprol Xl) 50 mg BID PO Last administered on 09/05/16 20 :52; Start 09/05/16 at 09:00 Acetaminophen (Tylenol) 650 mg Q4H PRN PO PAIN/HEADACHE Last administered on 10:43; Start 09/05/16 at 10:45 A/P Assessment and Plan A/P - hypotension- transient;resolved -left neck squamous cell carcinoma- s/p recent embolization due to excessive bleeding- this was done at [facility]-f/u as outpatient -leukocytosis- likely reactive- will monitor temps- again spoke with Dr. Waddell (cell [phone]); recommended outpatient f/ u with oncology since the patient is afebrile and there's no obvious source of infection. -CAD- s/p stent placement; resumed aspirin and statin; resumed BB . -history of hypertension;resumed home meds. -atrial fibrillation- resume BB . -DVT prophylaxis with SCD's -DNR status per my discussion with the patient. -hospice consult appreciated; patient is considering going home with [facility]. Discharge Planning awaiting PT evaluation. likely dc home later today; home with [facility] vs rehab. see med list. d/w the patient and RN. case management consulted for dc planning. Vanessa Varghese MD Sep 06, 2016 07:50
--- NOTE | 2016-09-06 07:51 | HHI.DS ---
Discharge Summary Admission Date Sep 04, 2016 at 17:57 Discharge Date: Sep 06, 2016 Admitting Diagnosis leukocytosis, syncope, head and neck cancer (1) Squamous cell carcinoma of head and neck ICD Code: C76.0 Diagnosis: Principal (2) Hypotension ICD Code: I95.9 Diagnosis: Principal Procedures none Brief History - From Admission patient is a 71 y/o male with squamous cell carcinoma of the neck, CAD, hypertension,atrial fibrillation who was brought to ER with low blood pressure. he was just discharge from [facility] after he went through embolization of the left neck mass due to excessive bleeding. he says that he was fine till this morning when he started to feel dizzy and according to the family he was somewhat confused and incoherent. his blood pressures was checked at home and when it was noticed that his BP was going down he was brought to ER. his blood pressure improved after the IV fluid that he received in ER. he denies any chest pain, sob or abdominal pain. CBC/BMP: 09/05/16 0715 09/04/16 1427 Significant Findings Laboratory Tests Test 09/04/16 09/04/16 09/05/16 14:27 15:22 07:15 White Blood Count 15.7 TH/MM3 16.0 TH/MM3 (4.0-11.0) (4.0-11.0) Red Blood Count 3.57 MIL/MM3 3.67 MIL/MM3 (4.50-5.90) (4.50-5.90) Hemoglobin 10.5 GM/DL 11.0 GM/DL (13.0-17.0) (13.0-17.0) Hematocrit 31.2 % 32.4 % (39.0-51.0) (39.0-51.0) Neutrophils (%) (Auto) 88.9 % 88.5 % (16.0-70.0) (16.0-70.0) Lymphocytes (%) (Auto) 2.4 % 2.6 % (9.0-44.0) (9.0-44.0) Neutrophils # (Auto) 14.0 TH/MM3 14.1 TH/MM3 (1.8-7.7) (1.8-7.7) Lymphocytes # (Auto) 0.4 TH/MM3 0.4 TH/MM3 (1.0-4.8) (1.0-4.8) Monocytes # (Auto) 1.2 TH/MM3 1.3 TH/MM3 (0-0.9) (0-0.9) Prothrombin Time 12.0 SEC (9.8-11.6) Activated Partial 36.1 SEC Thromboplast Time (24.3-30.1) Sodium Level 135 MEQ/L (136-145) Blood Urea Nitrogen 19 MG/DL (7-18) Estimat Glomerular Filtration 61 ML/MIN (>89) Rate Random Glucose 108 MG/DL (74-106) Calcium Level 7.7 MG/DL (8.5-10.1) Total Protein 5.9 GM/DL (6.4-8.2) Albumin 2.1 GM/DL (3.4-5.0) Urine Bacteria RARE /hpf (NONE) Urine Mucus FEW /lpf (OCC) Platelet Count 462 TH/MM3 (150-450) Monocytes (%) (Auto) 8.4 % (0.0-8.0) Imaging Last Impressions Chest X-Ray 09/04/16 1353 Signed Impressions: Service Date/Time: Sunday, September 04, 2016 13:59 - CONCLUSION: Left basilar atelectasis. Barrington Tse MD PE at Discharge GENERAL: This is a well-nourished, well-developed patient, in no apparent distress. Neck; left neck covered with clean dressing. CARDIOVASCULAR: Regular rate and regular rhythm without murmurs, gallops, or rubs. RESPIRATORY: Clear to auscultation. Breath sounds equal bilaterally. No wheezes , rales, or rhonchi. GASTROINTESTINAL: Abdomen soft, non-tender, nondistended. Normal, active bowel sounds MUSCULOSKELETAL: Extremities without clubbing, cyanosis, or edema. NEURO: Alert & Oriented x4 to person, place, time, situation. Moves all ext x4 Hospital Course - hypotension- transient;resolved -left neck squamous cell carcinoma- s/p recent embolization due to excessive bleeding- this was done at [facility]-f/u as outpatient -leukocytosis- likely reactive- will monitor temps- -CAD- s/p stent placement; resumed aspirin and statin; resumed BB . -history of hypertension;resumed home meds. -atrial fibrillation- resume BB . -DVT prophylaxis with SCD's -DNR status per my discussion with the patient. -hospice consult appreciated; patient is considering going home with [facility]. Pt Condition on Discharge: Fair Discharge Disposition: Discharge to SNF Discharge Time: <= 30 minutes Discharge Instructions DIET: Follow Instructions for: Heart Healthy Diet Activities you can perform: Regular-No Restrictions Follow up Referrals: Oncology PCP Follow-up Continued Medications: Aspirin DR (Aspirin EC) 81 Mg Tabdr 162 MG PO DAILY Ref 0 TAB Atorvastatin (Lipitor) 10 Mg Tab 10 MG PO HS cardiac #30 Ref 0 TAB Fluticasone-Salmeterol Inh (Advair Diskus Inh) 100-50 Mcg/Blist Aer 1 PUFF INH DAILY Rinse mouth after use. Asthma Management #1 Ref 0 INHALER Losartan (Losartan) 100 Mg Tab 100 MG PO DAILY Blood Pressure Management #30 Ref 0 TAB Metoprolol Succinate ER 24 HR (Metoprolol Succinate ER 24 HR) 50 Mg Tab 50 MG PO BID #30 Ref 0 TAB Ondansetron (Zofran) 4 Mg Tab 4 MG PO BID PRN NAUSEA OR VOMITING Ref 0 TAB Pregabalin (Lyrica) 100 Mg Cap 100 MG PO BID #60 Ref 0 CAP Discontinued Medications: Amlodipine (Amlodipine) 5 Mg Tab 5 MG PO DAILY Blood Pressure Management #30 Ref 0 TAB Vanessa Varghese MD Sep 06, 2016 07:51
[2016-09-06 07:59] VITALS: BP 183/86; PULSE 82; RESP 18; TEMP 99.3; O2SAT 98
[2016-09-06] MEDS: BUDESONIDE-FORMOTEROL 80/4.5 MCG INHALER INH SCH (09:00)
[2016-09-06] MEDS: METOPROLOL SUCCINATE 50 MG EXTENDED RELEASE TAB PO SCH ×2 (09:18→21:16)
[2016-09-06] MEDS: LOSARTAN 50 MG TAB PO SCH (09:18)
[2016-09-06] MEDS: ASPIRIN EC 81 MG TABEC PO SCH (09:18)
[2016-09-06] MEDS: PREGABALIN 100 MG CAP PO SCH ×2 (09:21→22:05)
[2016-09-06 11:06] VITALS: BP 140/99; PULSE 106; TEMP 99.1; O2SAT 96
[2016-09-06] MEDS: ACETAMINOPHEN 325 MG TAB PO PRN ×2 (11:42→17:16)
[2016-09-06 13:05] LABS: BASOPHIL # 0.1 TH/MM3 (0-0.2); BASOPHIL % 0.3 % (0.0-2.0); EOSINOPHIL # 0.1 TH/MM3 (0-0.4); EOSINOPHIL % 0.3 % (0.0-4.0); HEMATOCRIT 35.4 % (39.0-51.0); HEMO FLAGS DIFF FINAL; LYMPH % 2.8 % (9.0-44.0); LYMPHOCYTE # 0.4 TH/MM3 (1.0-4.8); MEAN CELL VOLUME 87.6 FL (80.0-100.0); MEAN CORPUSCULAR HEMOGLOBIN 29.9 PG (27.0-34.0); MEAN CORPUSCULAR HGB CONC 34.1 % (32.0-36.0); MONO % 7.7 % (0.0-8.0); NEUT % 88.9 % (16.0-70.0); PLATELET COUNT 479 TH/MM3 (150-450); RED BLOOD COUNT 4.04 MIL/MM3 (4.50-5.90); RED CELL DISTRIBUTION WIDTH 15.2 % (11.6-17.2); WHITE BLOOD COUNT 15.8 TH/MM3 (4.0-11.0)
[2016-09-06 15:39] VITALS: BP 119/74; PULSE 86; RESP 16; TEMP 98.6; O2SAT 97
[2016-09-06 19:33] VITALS: BP 146/69; PULSE 99; RESP 18; TEMP 98.5; O2SAT 95
[2016-09-06] MEDS: ONDANSETRON ODT 4 MG TAB PO PRN (21:15)
[2016-09-06] MEDS: ATORVASTATIN 10 MG TAB PO SCH (21:16)
[2016-09-07] VITALS (9 sets, daily range): BP systolic 95–206; BP diastolic 57–112; PULSE 88–124; RESP 18–24; TEMP 98.8–100.3; O2SAT 92–95
[2016-09-07] MEDS ORDERED: cloNIDine HCL 0.1 MG TAB PO ONE (00:30)
[2016-09-07] MEDS: SODIUM CHLOR 0.9% 1000 ML INJ 1,000 ML IV SCH ×2 (05:57→18:35)
[2016-09-07] MEDS: ONDANSETRON HCL 4 MG/2 ML VIAL IV PUSH PRN ×2 (05:57→19:54)
--- NOTE | 2016-09-07 08:06 | HHI.PR ---
Subjective Remarks in no acute distress. had a low grade fever earlier this morning. now has some cough. denies pain. Objective Vitals Vital Signs Date Time Temp Pulse Resp B/P Pulse Ox O2 Delivery O2 Flow Rate FiO2 09/07/16 07:24 100.3 88 18 101/66 95 09/07/16 05:16 99.3 108 20 138/69 92 09/07/16 00:06 99.8 124 24 206/112 93 09/06/16 23:11 18 09/06/16 19:33 98.5 99 18 146/69 95 09/06/16 15:39 98.6 86 16 119/74 97 09/06/16 11:06 99.1 106 140/99 96 I/O 09/06/16 09/06/16 09/06/16 09/07/16 09/07/16 09/07/16 07:00 15:00 23:00 07:00 15:00 23:00 Output Total 800 ml Balance -800 ml Output Urine Total 800 ml # Voids 1 # Bowel Movements 1 Result Diagram: 09/06/16 1152 09/04/16 1427 Imaging Last Impressions Chest X-Ray 09/04/16 1353 Signed Impressions: Service Date/Time: Sunday, September 04, 2016 13:59 - CONCLUSION: Left basilar atelectasis. Barrington Tse MD Objective Remarks GENERAL: This is a well-nourished, well-developed patient, in no apparent distress. Neck; left neck covered with clean dressing. CARDIOVASCULAR: Regular rate and regular rhythm without murmurs, gallops, or rubs. RESPIRATORY: Clear to auscultation. Breath sounds equal bilaterally. No wheezes , rales, or rhonchi. GASTROINTESTINAL: Abdomen soft, non-tender, nondistended. Normal, active bowel sounds MUSCULOSKELETAL: Extremities without clubbing, cyanosis, or edema. NEURO: Alert & Oriented x4 to person, place, time, situation. Moves all ext x4 Procedures none Medications and IVs Current Medications Sodium Chloride 2 ml 2 ml UNSCH PRN IVF FLUSH AFTER USING IV ACCESS Last administered on 09/06/16 21:16; Start 09/04/16 at 14:00 Sodium Chloride (NS 1000 ml Inj) 1,000 ml @ 999 mls/hr BOLUS ONCE IV Last administered on 09/04/16 14:00; Start 09/04/16 at 14:00; Stop 09/04/16 at 15:00 ; Status DC Ondansetron HCl (Zofran Inj) 8 mg ONCE ONCE IV PUSH Last administered on 16:01; Start 09/04/16 at 16:00; Stop 09/04/16 at 16:01; Status DC Calcium Gluconate 1 gm 1 gm ONCE ONCE IV PUSH Last administered on 09/04/16 16:45; Start 09/04/16 at 16:45; Stop 09/04/16 at 16:46; Status DC Sodium Chloride (NS 1000 ml Inj) 1,000 ml @ 100 mls/hr Q10H IV Last administered on 09/07/16 05:57; Start 09/04/16 at 18:00 Aspirin (Ecotrin Ec) 162 mg DAILY PO Last administered on 09/06/16 09:18; Start 09/05/16 at 09:00 Atorvastatin Calcium (Lipitor) 10 mg HS PO Last administered on 09/06/16 21:16 ; Start 09/04/16 at 21:00 Pregabalin (Lyrica) 100 mg BID PO Last administered on 09/06/16 22:05; Start 09/04/16 at 21:00 Non-Formulary Medication 1 puff DAILY INH AST; Start 09/05/16 at 09:00; Status UNV Budesonide/ Formoterol Fumarate (Symbicort 80-4.5 Mcg Inh) 2 puff DAILY INH Last administered on 09/05/16 08:49; Start 09/05/16 at 09:00 Ondansetron HCl (Zofran Odt) 4 mg Q6H PRN PO NAUSEA OR VOMITING Last administered on 09/06/16 21:15; Start 09/05/16 at 02:45 Ondansetron HCl (Zofran Inj) 4 mg Q6H PRN IV PUSH NAUSEA OR VOMITING Last administered on 09/07/16 05:57; Start 09/05/16 at 02:45 Simethicone (Mylicon Chew) 80 mg ONCE ONCE CHEW Last administered on 09:50; Start 09/05/16 at 08:00; Stop 09/05/16 at 08:05; Status DC Losartan Potassium (Cozaar) 100 mg DAILY PO Last administered on 09/06/16 09: 18; Start 09/05/16 at 09:00 Metoprolol Succinate (Toprol Xl) 50 mg BID PO Last administered on 09/06/16 21 :16; Start 09/05/16 at 09:00 Acetaminophen (Tylenol) 650 mg Q4H PRN PO PAIN/HEADACHE Last administered on 17:16; Start 09/05/16 at 10:45 Clonidine (Catapres) 0.1 mg ONCE ONCE PO Last administered on 09/07/16 00:42 ; Start 09/07/16 at 00:30; Stop 09/07/16 at 00:32; Status DC A/P Assessment and Plan A/P - hypotension- transient;resolved -left neck squamous cell carcinoma- s/p recent embolization due to excessive bleeding- this was done at [facility]-f/u as outpatient -leukocytosis- likely reactive-however with low grade fever and cough will repeat CXR today. of note case was previously d/w Dr. Waddell (cell [phone]); recommended outpatient f/u with oncology . -CAD- s/p stent placement; resumed aspirin and statin; resumed BB . -history of hypertension;resumed home meds. -atrial fibrillation- resume BB . -DVT prophylaxis with SCD's -DNR status per my discussion with the patient. -hospice consult appreciated; patient is considering going home with [facility]. Discharge Planning hold discharge for now due to fever. Vanessa Varghese MD Sep 07, 2016 08:06
--- NOTE | 2016-09-07 08:42 | RADRPT ---
EXAM DATE/TIME: 09/07/2016 08:20 [facility] COMPARISON: CHEST SINGLE AP, September 04, 2016, 13:59. CHEST SINGLE AP, August 14, 2016, 14:33. CTA CAROTID ARTERIE S W 3D RECON, June 19, 2016, 12:00. INDICATIONS : Cough MEDICAL HISTORY : Myocardial infarction. Asthma, CA left cheek SURGICAL HISTORY : Coronary artery stent. Infusaport ENCOUNTER: Subsequent ACUITY: 3 weeks PAIN SCORE: 0/10 LOCATION: Bilateral chest FINDINGS: Right chest port is stable and satisfactory position. Left apical pleural thickening or fluid is agai n noted. Perihilar and basilar consolidative changes are worsening. There is mild infiltrate in the m edial right base. CONCLUSION: Worsening aeration Perry Wells MD on September 07, 2016 at 8:38 Board Certified Radiologist. This report was verified electronically.
[2016-09-07] MEDS: PREGABALIN 100 MG CAP PO SCH ×2 (08:45→19:54)
[2016-09-07] MEDS: ASPIRIN EC 81 MG TABEC PO SCH (08:46)
[2016-09-07] MEDS: BUDESONIDE-FORMOTEROL 80/4.5 MCG INHALER INH SCH (08:47)
[2016-09-07] MEDS: LOSARTAN 50 MG TAB PO SCH ×2 (09:00→11:53)
[2016-09-07] MEDS: METOPROLOL SUCCINATE 50 MG EXTENDED RELEASE TAB PO SCH ×3 (09:00→19:55)
[2016-09-07] MEDS: ACETAMINOPHEN 325 MG TAB PO PRN (09:15)
[2016-09-07] MEDS: ONDANSETRON ODT 4 MG TAB PO PRN (11:52)
[2016-09-07] MEDS: LEVOFLOXACIN 500 MG PREMIX INJ 100 ML IV SCH ×2 (13:20→14:46)
[2016-09-07] MEDS ORDERED: SIMETHICONE 80 MG CHEWABLE TAB CHEW PRN (13:45)
[2016-09-07] MEDS: ACETAMINOPHEN/HYDROcodone 325 MG/5 MG TAB PO PRN (17:05)
[2016-09-07] MEDS: BENZONATATE 100 MG CAP PO PRN (18:34)
[2016-09-07] MEDS: ATORVASTATIN 10 MG TAB PO SCH (19:54)
--- NOTE | 2016-09-07 22:32 | EKG ---
Date Performed: 09/07/2016 Time Performed: 15:49:55 PTAGE: 71 years EKG: Sinus rhythm POSSIBLE LEFT ATRIAL ENLARGEMENT POSSIBLE LEFT VENTRICULAR HYPERTROPHY ABNORMAL ECG PREVIOUS TRACING : 09/04/2016 15.01 No significant change from previous tracing noted. DOCTOR: Mynor Heath Interpretating Date/Time 09/07/2016 22:31:12
[2016-09-08] VITALS (8 sets, daily range): BP systolic 80–198; BP diastolic 49–97; PULSE 60–110; RESP 18–20; TEMP 96.9–100.3; O2SAT 93–97
[2016-09-08] MEDS ORDERED: ENALAPRILAT 1.25 MG/ML VIAL IV PUSH PRN (01:15)
[2016-09-08] MEDS ORDERED: cloNIDine HCL 0.1 MG TAB PO ONE (01:15)
[2016-09-08] MEDS: SODIUM CHLOR 0.9% 1000 ML INJ 1,000 ML IV SCH (01:23)
[2016-09-08] MEDS ORDERED: HYDROmorphone HCL PF 1 MG/ML VIAL IV PUSH PRN (07:45)
--- NOTE | 2016-09-08 07:45 | HHI.PR ---
Subjective Remarks in no respiratory distress. sob has improved but still with occasional cough. no fever today. d/w the RN and no acute issues over night. Objective Vitals Vital Signs Date Time Temp Pulse Resp B/P Pulse Ox O2 Delivery O2 Flow Rate FiO2 09/08/16 04:58 99.6 90 18 170/89 95 09/08/16 00:21 99.3 101 20 198/97 93 09/07/16 19:24 98.9 94 18 138/69 93 09/07/16 15:33 98 119/57 95 09/07/16 14:06 98.8 96 94 09/07/16 13:18 118/83 09/07/16 12:00 95/61 09/07/16 11:30 99.3 101 20 140/75 95 I/O 09/07/16 09/07/16 09/07/16 09/08/16 09/08/16 09/08/16 07:00 15:00 23:00 07:00 15:00 23:00 Intake Total 120 ml Balance 120 ml Intake Oral 120 ml Result Diagram: 09/06/16 1152 09/04/16 1427 Imaging Last Impressions Chest X-Ray 09/07/16 0000 Signed Impressions: Service Date/Time: August 08:20 - CONCLUSION: Worsening aeration Perry Wells MD Objective Remarks GENERAL: This is a well-nourished, well-developed patient, in no apparent distress. Neck; left neck covered with clean dressing. CARDIOVASCULAR: Regular rate and regular rhythm without murmurs, gallops, or rubs. RESPIRATORY: Clear to auscultation. Breath sounds equal bilaterally. No wheezes , rales, or rhonchi. GASTROINTESTINAL: Abdomen soft, non-tender, nondistended. Normal, active bowel sounds MUSCULOSKELETAL: Extremities without clubbing, cyanosis, or edema. NEURO: Alert & Oriented x4 to person, place, time, situation. Moves all ext x4 Procedures none Medications and IVs Current Medications Sodium Chloride 2 ml 2 ml UNSCH PRN IVF FLUSH AFTER USING IV ACCESS Last administered on 09/06/16 21:16; Start 09/04/16 at 14:00 Sodium Chloride (NS 1000 ml Inj) 1,000 ml @ 999 mls/hr BOLUS ONCE IV Last administered on 09/04/16 14:00; Start 09/04/16 at 14:00; Stop 09/04/16 at 15:00 ; Status DC Ondansetron HCl (Zofran Inj) 8 mg ONCE ONCE IV PUSH Last administered on 16:01; Start 09/04/16 at 16:00; Stop 09/04/16 at 16:01; Status DC Calcium Gluconate 1 gm 1 gm ONCE ONCE IV PUSH Last administered on 09/04/16 16:45; Start 09/04/16 at 16:45; Stop 09/04/16 at 16:46; Status DC Sodium Chloride (NS 1000 ml Inj) 1,000 ml @ 100 mls/hr Q10H IV Last administered on 09/07/16 18:35; Start 09/04/16 at 18:00 Aspirin (Ecotrin Ec) 162 mg DAILY PO Last administered on 09/07/16 08:46; Start 09/05/16 at 09:00 Atorvastatin Calcium (Lipitor) 10 mg HS PO Last administered on 09/07/16 19:54 ; Start 09/04/16 at 21:00 Pregabalin (Lyrica) 100 mg BID PO Last administered on 09/07/16 19:54; Start 09/04/16 at 21:00 Non-Formulary Medication 1 puff DAILY INH AST; Start 09/05/16 at 09:00; Status UNV Budesonide/ Formoterol Fumarate (Symbicort 80-4.5 Mcg Inh) 2 puff DAILY INH Last administered on 09/05/16 08:49; Start 09/05/16 at 09:00 Ondansetron HCl (Zofran Odt) 4 mg Q6H PRN PO NAUSEA OR VOMITING Last administered on 09/07/16 11:52; Start 09/05/16 at 02:45 Ondansetron HCl (Zofran Inj) 4 mg Q6H PRN IV PUSH NAUSEA OR VOMITING Last administered on 09/07/16 19:54; Start 09/05/16 at 02:45 Simethicone (Mylicon Chew) 80 mg ONCE ONCE CHEW Last administered on 09:50; Start 09/05/16 at 08:00; Stop 09/05/16 at 08:05; Status DC Losartan Potassium (Cozaar) 100 mg DAILY PO Last administered on 09/06/16 09: 18; Start 09/05/16 at 09:00 Metoprolol Succinate (Toprol Xl) 50 mg BID PO Last administered on 09/07/16 19 :55; Start 09/05/16 at 09:00 Acetaminophen (Tylenol) 650 mg Q4H PRN PO FEVER/HEADACHE/PAIN < 5 Last administered on 09/07/16 09:15; Start 09/05/16 at 10:45 Clonidine (Catapres) 0.1 mg ONCE ONCE PO Last administered on 09/07/16 00:42 ; Start 09/07/16 at 00:30; Stop 09/07/16 at 00:32; Status DC Benzonatate 100 mg 100 mg TID PRN PO COUGH Last administered on 09/07/16 18:34 ; Start 09/07/16 at 08:15 Levofloxacin/ Dextrose (Levaquin 500 Mg Premix Inj) 100 ml @ 100 mls/hr Q24H IV Last administered on 09/07/16 14:46; Start 09/07/16 at 13:00 Simethicone (Mylicon Chew) 80 mg PCHS PRN CHEW GAS RETENTION Last administered on 09/07/16 14:03; Start 09/07/16 at 13:45 Acetaminophen/ Hydrocodone Bitart ([place] 5-325 Mg) 1 tab Q4H PRN PO PAIN > 5 Last administered on 09/07/16 17:05; Start 09/07/16 at 16:30 Enalaprilat (Vasotec Inj) 1.25 mg Q6H PRN IV PUSH SBP>180 and/or DBP>90; Start 09/08/16 at 01:15 Clonidine (Catapres) 0.1 mg ONCE ONCE PO Last administered on 09/08/16 01:14 ; Start 09/08/16 at 01:15; Stop 09/08/16 at 01:16; Status DC A/P Assessment and Plan A/P - hypotension- transient;resolved -left neck squamous cell carcinoma- s/p recent [facility] due to excessive bleeding[facility]; continue antibiotic- will monitor temps- repeat CXR in am. -CAD- s/p stent placement; resumed aspirin and statin; resumed BB . -history of hypertension;resumed home meds. -atrial fibrillation- resume BB . -DVT prophylaxis with SCD's -DNR status per my discussion with the patient. -hospice consult appreciated;however patient is considering going home with [facility]. Discharge Planning possible dc home tomorrow if stable and remains fever-free. d/w the patient and RN. Vanessa Varghese MD Sep 08, 2016 07:45
[2016-09-08] MEDS: BUDESONIDE-FORMOTEROL 80/4.5 MCG INHALER INH SCH (09:00)
[2016-09-08] MEDS: LOSARTAN 50 MG TAB PO SCH (09:07)
[2016-09-08] MEDS: ASPIRIN EC 81 MG TABEC PO SCH (09:07)
[2016-09-08] MEDS: METOPROLOL SUCCINATE 50 MG EXTENDED RELEASE TAB PO SCH ×2 (09:07→21:00)
[2016-09-08] MEDS: SODIUM CHLORIDE 0.9% FLUSH 10 ML FLUSH IVF PRN (09:08)
[2016-09-08] MEDS: PREGABALIN 100 MG CAP PO SCH ×2 (09:08→21:11)
[2016-09-08] MEDS: BENZONATATE 100 MG CAP PO PRN (09:10)
[2016-09-08] MEDS: ACETAMINOPHEN/HYDROcodone 325 MG/5 MG TAB PO PRN (09:11)
[2016-09-08 09:24] LABS: AUTOMATED NEUTROPHIL # 11.4 TH/MM3 (1.8-7.7); BASOPHIL # 0.1 TH/MM3 (0-0.2); BASOPHIL % 0.5 % (0.0-2.0); EOSINOPHIL % 0.3 % (0.0-4.0); HEMATOCRIT 32.4 % (39.0-51.0); HEMO FLAGS DIFF FINAL; LYMPH % 2.7 % (9.0-44.0); LYMPHOCYTE # 0.4 TH/MM3 (1.0-4.8); MEAN CELL VOLUME 87.4 FL (80.0-100.0); MEAN CORPUSCULAR HGB CONC 33.2 % (32.0-36.0); MONO % 11.4 % (0.0-8.0); NEUT % 85.1 % (16.0-70.0); PLATELET COUNT 462 TH/MM3 (150-450); RED BLOOD COUNT 3.71 MIL/MM3 (4.50-5.90); RED CELL DISTRIBUTION WIDTH 14.6 % (11.6-17.2); WHITE BLOOD COUNT 13.4 TH/MM3 (4.0-11.0)
[2016-09-08] MEDS: ONDANSETRON ODT 4 MG TAB PO PRN ×2 (10:35→16:29)
[2016-09-08] MEDS: LEVOFLOXACIN 500 MG PREMIX INJ 100 ML IV SCH (12:59)
[2016-09-08] MEDS: ATORVASTATIN 10 MG TAB PO SCH (21:12)
[2016-09-08] MEDS: ACETAMINOPHEN 325 MG TAB PO PRN (21:12)
[2016-09-08] MEDS: ONDANSETRON HCL 4 MG/2 ML VIAL IV PUSH PRN (22:36)
[2016-09-09 00:24] VITALS: BP 127/93; PULSE 97; RESP 18; TEMP 96.6; O2SAT 97
[2016-09-09 05:49] VITALS: BP 133/67; PULSE 118; RESP 18; TEMP 98.6; O2SAT 97
[2016-09-09] MEDS: ONDANSETRON HCL 4 MG/2 ML VIAL IV PUSH PRN (06:39)
--- NOTE | 2016-09-09 06:55 | RADRPT ---
EXAM DATE/TIME: 09/09/2016 06:39 [facility] COMPARISON: CHEST SINGLE AP, September 07, 2016, 8:20. INDICATIONS : Shortness of breath. MEDICAL HISTORY : Myocardial infarction. Asthma, CA left cheek SURGICAL HISTORY : Coronary artery stent. Infusaport. ENCOUNTER: Subsequent ACUITY: 3 months PAIN SCORE: 0/10 LOCATION: Bilateral chest FINDINGS: The cardiac silhouette is enlarged in transverse diameter. There is left lower lobe atelectasis versu s pneumonia. The right lung is free of acute parenchymal opacity. No pleural effusions are identified . CONCLUSION: 1. Cardiomegaly. There is left lower lobe atelectasis versus pneumonia. The findings are improved whe n compared with the prior exam. Stuart Serna MD on September 09, 2016 at 6:52 Board Certified Radiologist. This report was verified electronically.
[2016-09-09] MEDS ORDERED: LEVA500T PO (07:45)
--- NOTE | 2016-09-09 07:45 | HHI.PR ---
Subjective Remarks overall doing better. no fever this morning. hoping that he would go home today. Objective Vitals Vital Signs Date Time Temp Pulse Resp B/P Pulse Ox O2 Delivery O2 Flow Rate FiO2 09/09/16 05:49 98.6 118 18 133/67 97 09/09/16 00:24 96.6 97 18 127/93 97 09/08/16 19:33 100.3 110 20 113/69 95 09/08/16 17:39 110/70 Automatic Cuff 09/08/16 16:23 97.6 60 18 80/49 96 09/08/16 11:15 90 98/58 95 09/08/16 09:34 95 21 09/08/16 08:19 96.9 101 18 163/79 97 Result Diagram: 09/08/16 0856 Imaging Last Impressions Chest X-Ray 09/09/16 0600 Signed Impressions: Service Date/Time: Friday, September 09, 2016 06:39 - CONCLUSION: 1. Cardiomegaly. There is left lower lobe atelectasis versus pneumonia. The findings are improved when compared with the prior exam. Stuart Serna MD Objective Remarks GENERAL: This is a well-nourished, well-developed patient, in no apparent distress. Neck; left neck covered with clean dressing. CARDIOVASCULAR: Regular rate and regular rhythm without murmurs, gallops, or rubs. RESPIRATORY: Clear to auscultation. Breath sounds equal bilaterally. No wheezes , rales, or rhonchi. GASTROINTESTINAL: Abdomen soft, non-tender, nondistended. Normal, active bowel sounds MUSCULOSKELETAL: Extremities without clubbing, cyanosis, or edema. NEURO: Alert & Oriented x4 to person, place, time, situation. Moves all ext x4 Procedures none Medications and IVs Current Medications Sodium Chloride 2 ml 2 ml UNSCH PRN IVF FLUSH AFTER USING IV ACCESS Last administered on 09/08/16 09:08; Start 09/04/16 at 14:00 Sodium Chloride (NS 1000 ml Inj) 1,000 ml @ 999 mls/hr BOLUS ONCE IV Last administered on 09/04/16 14:00; Start 09/04/16 at 14:00; Stop 09/04/16 at 15:00 ; Status DC Ondansetron HCl (Zofran Inj) 8 mg ONCE ONCE IV PUSH Last administered on 16:01; Start 09/04/16 at 16:00; Stop 09/04/16 at 16:01; Status DC Calcium Gluconate 1 gm 1 gm ONCE ONCE IV PUSH Last administered on 09/04/16 16:45; Start 09/04/16 at 16:45; Stop 09/04/16 at 16:46; Status DC Sodium Chloride (NS 1000 ml Inj) 1,000 ml @ 100 mls/hr Q10H IV Last administered on 09/07/16 18:35; Start 09/04/16 at 18:00; Stop 09/08/16 at 07:42 ; Status DC Aspirin (Ecotrin Ec) 162 mg DAILY PO Last administered on 09/08/16 09:07; Start 09/05/16 at 09:00 Atorvastatin Calcium (Lipitor) 10 mg HS PO Last administered on 09/08/16 21:12 ; Start 09/04/16 at 21:00 Pregabalin (Lyrica) 100 mg BID PO Last administered on 09/08/16 21:11; Start 09/04/16 at 21:00 Non-Formulary Medication 1 puff DAILY INH AST; Start 09/05/16 at 09:00; Status UNV Budesonide/ Formoterol Fumarate (Symbicort 80-4.5 Mcg Inh) 2 puff DAILY INH Last administered on 09/05/16 08:49; Start 09/05/16 at 09:00 Ondansetron HCl (Zofran Odt) 4 mg Q6H PRN PO NAUSEA OR VOMITING Last administered on 09/08/16 16:29; Start 09/05/16 at 02:45 Ondansetron HCl (Zofran Inj) 4 mg Q6H PRN IV PUSH NAUSEA OR VOMITING Last administered on 09/09/16 06:39; Start 09/05/16 at 02:45 Simethicone (Mylicon Chew) 80 mg ONCE ONCE CHEW Last administered on 09:50; Start 09/05/16 at 08:00; Stop 09/05/16 at 08:05; Status DC Losartan Potassium (Cozaar) 100 mg DAILY PO Last administered on 09/08/16 09: 07; Start 09/05/16 at 09:00 Metoprolol Succinate (Toprol Xl) 50 mg BID PO Last administered on 09/08/16 09 :07; Start 09/05/16 at 09:00 Acetaminophen (Tylenol) 650 mg Q4H PRN PO FEVER/HEADACHE/PAIN < 5 Last administered on 09/08/16 21:12; Start 09/05/16 at 10:45 Clonidine (Catapres) 0.1 mg ONCE ONCE PO Last administered on 09/07/16 00:42 ; Start 09/07/16 at 00:30; Stop 09/07/16 at 00:32; Status DC Benzonatate 100 mg 100 mg TID PRN PO COUGH Last administered on 09/08/16 09:10 ; Start 09/07/16 at 08:15 Levofloxacin/ Dextrose (Levaquin 500 Mg Premix Inj) 100 ml @ 100 mls/hr Q24H IV Last administered on 09/08/16 12:59; Start 09/07/16 at 13:00 Simethicone (Mylicon Chew) 80 mg PCHS PRN CHEW GAS RETENTION Last administered on 09/07/16 14:03; Start 09/07/16 at 13:45 Acetaminophen/ Hydrocodone Bitart ([place] 5-325 Mg) 1 tab Q4H PRN PO PAIN > 5 Last administered on 09/08/16 09:11; Start 09/07/16 at 16:30 Enalaprilat (Vasotec Inj) 1.25 mg Q6H PRN IV PUSH SBP>180 and/or DBP>90; Start 09/08/16 at 01:15 Clonidine (Catapres) 0.1 mg ONCE ONCE PO Last administered on 09/08/16 01:14 ; Start 09/08/16 at 01:15; Stop 09/08/16 at 01:16; Status DC Hydromorphone HCl (Dilaudid Pf Inj) 0.2 mg Q4H PRN IV PUSH BREAKTHROUGH PAIN; Start 09/08/16 at 07:45 A/P Assessment and Plan A/P - hypotension- transient;resolved -left neck squamous cell carcinoma- s/p recent embolization due to excessive bleeding- [facility]possible pneumonia; continue antibiotic- repeated CXR today with improvement. -CAD- s/p stent placement; resumed aspirin and statin; resumed BB . -history of hypertension;resumed home meds. -atrial fibrillation- resumed BB . -DVT prophylaxis with SCD's -DNR status per my discussion with the patient. -hospice consult appreciated;however patient declined. Discharge Planning possible dc to SNF later this afternoon if no recurrent fever. see med list. f/u with pcp and oncology. d/w the patient. time spent 32 min. Vanessa Varghese MD Sep 09, 2016 07:44
--- NOTE | 2016-09-09 08:09 | HHI.DS ---
Discharge Summary Admission Date Sep 04, 2016 at 17:57 Discharge Date: Sep 09, 2016 Admitting Diagnosis leukocytosis, syncope, head and neck cancer (1) Squamous cell carcinoma of head and neck ICD Code: C76.0 Diagnosis: Principal (2) Hypotension ICD Code: I95.9 Diagnosis: Principal Procedures none Brief History - From Admission patient is a 71 y/o male with squamous cell carcinoma of the neck, CAD, hypertension,atrial fibrillation who was brought to ER with low blood pressure. he was just discharge from [facility] after he went through embolization of the left neck mass due to excessive bleeding. he says that he was fine till this morning when he started to feel dizzy and according to the family he was somewhat confused and incoherent. his blood pressures was checked at home and when it was noticed that his BP was going down he was brought to ER. his blood pressure improved after the IV fluid that he received in ER. he denies any chest pain, sob or abdominal pain. CBC/BMP: 09/08/16 0856 Significant Findings Laboratory Tests Test 09/06/16 09/08/16 11:52 08:56 White Blood Count 15.8 TH/MM3 13.4 TH/MM3 (4.0-11.0) (4.0-11.0) Red Blood Count 4.04 MIL/MM3 3.71 MIL/MM3 (4.50-5.90) (4.50-5.90) Hemoglobin 12.1 GM/DL 10.8 GM/DL (13.0-17.0) (13.0-17.0) Hematocrit 35.4 % 32.4 % (39.0-51.0) (39.0-51.0) Platelet Count 479 TH/MM3 462 TH/MM3 (150-450) (150-450) Neutrophils (%) (Auto) 88.9 % 85.1 % (16.0-70.0) (16.0-70.0) Lymphocytes (%) (Auto) 2.8 % 2.7 % (9.0-44.0) (9.0-44.0) Neutrophils # (Auto) 14.0 TH/MM3 11.4 TH/MM3 (1.8-7.7) (1.8-7.7) Lymphocytes # (Auto) 0.4 TH/MM3 0.4 TH/MM3 (1.0-4.8) (1.0-4.8) Monocytes # (Auto) 1.2 TH/MM3 1.5 TH/MM3 (0-0.9) (0-0.9) Monocytes (%) (Auto) 11.4 % (0.0-8.0) Imaging Last Impressions Chest X-Ray 09/09/16 0600 Signed Impressions: Service Date/Time: Friday, September 09, 2016 06:39 - CONCLUSION: 1. Cardiomegaly. There is left lower lobe atelectasis versus pneumonia. The findings are improved when compared with the prior exam. Stuart Serna MD PE at Discharge GENERAL: This is a well-nourished, well-developed patient, in no apparent distress. Neck; left neck covered with clean dressing. CARDIOVASCULAR: Regular rate and regular rhythm without murmurs, gallops, or rubs. RESPIRATORY: Clear to auscultation. Breath sounds equal bilaterally. No wheezes , rales, or rhonchi. GASTROINTESTINAL: Abdomen soft, non-tender, nondistended. Normal, active bowel sounds MUSCULOSKELETAL: Extremities without clubbing, cyanosis, or edema. NEURO: Alert & Oriented x4 to person, place, time, situation. Moves all ext x4 Hospital Course - hypotension- transient;resolved -left neck squamous cell carcinoma- s/p recent embolization due to excessive bleeding- this was done at [facility]-f/u as outpatient -possible pneumonia; continue antibiotic- repeated CXR today with improvement. -CAD- s/p stent placement; resumed aspirin and statin; resumed BB . -history of hypertension;resumed home meds. -atrial fibrillation- resumed BB . -DVT prophylaxis with SCD's -DNR status per my discussion with the patient. -hospice consult appreciated;however patient declined. Pt Condition on Discharge: Fair Discharge Disposition: Discharge to SNF Discharge Time: > 30 minutes Discharge Instructions DIET: Follow Instructions for: Heart Healthy Diet Activities you can perform: Regular-No Restrictions Follow up Referrals: Oncology PCP Follow-up Vanessa Varghese MD Sep 09, 2016 08:09
[2016-09-09] MEDS: BUDESONIDE-FORMOTEROL 80/4.5 MCG INHALER INH SCH (09:00)
[2016-09-09] MEDS: LOSARTAN 50 MG TAB PO SCH (10:37)
[2016-09-09] MEDS: PREGABALIN 100 MG CAP PO SCH (10:37)
[2016-09-09] MEDS: ASPIRIN EC 81 MG TABEC PO SCH (10:37)
[2016-09-09] MEDS: METOPROLOL SUCCINATE 50 MG EXTENDED RELEASE TAB PO SCH (10:38)
[2016-09-09] MEDS: LEVOFLOXACIN 500 MG PREMIX INJ 100 ML IV SCH (10:38)
[2016-09-09 10:47] VITALS: BP 185/90; PULSE 93; RESP 18; TEMP 98.3; O2SAT 95
== END 2016-09-09 14:25 ==
LOC: NEPE 13:10 → NEDA 17:57 → NEPFCDU 21:14
PROVIDERS: ADMIT Internal Medicine; ATTEND Internal Medicine
DX: I95.9 Hypotension, unspecified (principal); D72.829 Elevated white blood cell count, unspecified; I48.91 Unspecified atrial fibrillation; I10 Essential (primary) hypertension; I25.10 Atherosclerotic heart disease of native coronary artery without angina pectoris; I25.2 Old myocardial infarction; J45.909 Unspecified asthma, uncomplicated; E78.00 Pure hypercholesterolemia, unspecified; Z79.51 Long term (current) use of inhaled steroids; Z95.5 Presence of coronary angioplasty implant and graft; Z79.82 Long term (current) use of aspirin; Z85.828 Personal history of other malignant neoplasm of skin; Z66 Do not resuscitate
CPT/HCPCS: 71010; 80053; 81001; 82550; 84484; 85025; 85610; 85730; 87086; 93005; 94150; 96361; 96374; 96375; 97110; 97162; 97530; 99285; G0378; G8987; G8988; J0610; J1956; J2405; J7030